=== PATIENT | male | born 1965 | race American Indian/Alaskan Native ===

== ENCOUNTER 2016-07-09 13:48 | Inpatient (IN) | payer MEDICARE, OTHER ==
[2016-07-09] MEDS ORDERED: ROCEPHIN/NS 1 GM/50 ML 50 ML IV ONE (14:03)
[2016-07-09] MEDS ORDERED: VANCOMYCIN/NS 1 GM/250 ML 250 ML IV ONE (14:04)
[2016-07-09] MEDS ORDERED: NACL 0.9% 1000 ML 1,000 ML IV ONE (14:04)
[2016-07-09] MEDS ORDERED: AMIDATE IV ONE ×4 (14:34→18:12)
[2016-07-09] MEDS ORDERED: VERSED IV ONE (14:34)
[2016-07-09] MEDS ORDERED: QUELICIN ONE (14:34)
[2016-07-09] MEDS ORDERED: ZEMURON IV ONE ×3 (14:34→15:27)
[2016-07-09] MEDS ORDERED: CARDENE DRIP 40 MG/200 ML 40 MG/200 ML BAG ONE (14:39)
[2016-07-09] MEDS ORDERED: DIPRIVAN 10 MG/ML 1,000 MG/100 ML BOTTLE IV ONE ×2 (14:40→18:41)
[2016-07-09] MEDS ORDERED: VASELINE LIP THERAPY TP PRN ×2 (14:51→14:55)
[2016-07-09] MEDS ORDERED: ARTIFICIAL TEARS OPHTH OINT OU PRN ×2 (14:51→14:55)
[2016-07-09] MEDS ORDERED: QUELICIN IV ONE (14:53)
[2016-07-09 14:57] LABS: Urine Drugs of Abuse Note Disclamer
[2016-07-09] MEDS ORDERED: VANCOMYCIN/NS 1 GM/250 ML 1 GM/250 ML BAG IV ONE (15:00)
[2016-07-09] MEDS ORDERED: ROCEPHIN/NS 1 GM/50 ML 1 GM/50 ML BAG IV ONE ×2 (15:00)
[2016-07-09] MEDS ORDERED: NACL 0.9% 500 ML IV SCH (15:00)
[2016-07-09] MEDS: DIPRIVAN 10 MG/ML 1,000 MG/100 ML BOTTLE IV SCH ×2 (15:04→21:55)
[2016-07-09 15:05] LABS: Bilirubin,Urine NEG (Negative); Blood,Urine MOD (Negative); Ketones,Urine TR mg/dL (Negative); Leukocyte Esterase,Urine NEG (Negative); Mucus,Urine FEW /HPF; Nitrite,Urine NEG (Negative); Urobilinogen,Urine < 2.0 mg/dL (<2.0)
[2016-07-09 15:11] LABS: Hematocrit 39.7 % (35.5-45.6); Hemoglobin 13.2 gm/dl (11.8-15.2); Mean Corpuscular HGB Conc 33 % (32-34); Mean Corpuscular Hemoglobin 30 pg (28-32); Mean Corpuscular Volume 91 fl (84-94); Platelet Count 196 K/mm3 (140-440); Red Blood Count 4.36 M/mm3 (3.65-5.03); White Blood Count 14.7 K/mm3 (4.5-11.0)
[2016-07-09] MEDS ORDERED: TYLENOL PR ONE ×2 (15:12→15:15)
[2016-07-09] MEDS ORDERED: fentaNYL DRIP Premix 2,000 MCG/100 ML BAG IV ONE (15:14)
--- NOTE | 2016-07-09 15:17 | XRay Report ---
PORTABLE CHEST INDICATION: Endotracheal tube placement. COMPARISON: None similar at this institution. FINDINGS: Portable, frontal chest radiograph demonstrates an endotracheal tube tip approximately 4.7 cm above the serena. Mild exaggerated cardiomediastinal silhouette and slightly crowded lung markings. No dense focal consolidation, pleural effusions or CHF. EKG leads. Unremarkable bones. CONCLUSION: No acute chest process and uncomplicated intubation, as described. Thank you for the opportunity to participate in this patient's care.
--- NOTE | 2016-07-09 15:18 | Admit Criteria Form ---
Admission Criteria Documentation: MENTAL STATUS CHANGE Clinical Indications for Inpatient Care (Place 'X' for any and all applicable criteria): Ongoing inpatient care may be needed for ANY ONE of the following(1)(2)(3)(5)(6) : [X]I. Suspected serious etiology (eg, medical disorder, RN CONCURRENT REVIEW event) of mental status change [ ]II. Danger to self or others not manageable at lower level of care [ ]III. Grave disability (eg, inability to perform self care necessary at lower level of care) [X]IV. Agitation or inappropriate behavior interfering with care for primary condition (eg, attempting to discontinue lines or drains prematurely, unable to cooperate with respiratory care) [ ]V. Delirium [A] [D][E] as described by ANY ONE of the following(26): [ ]a) Delirium due to alcohol or sedative [F] withdrawal [ ]b) Delirium of uncertain etiology that has not responded to appropriate empiric treatment [ ]c) Delirium that prevents performance of a life-sustaining function (eg, feeding or hydrating oneself) [X]. General contraindications and/or Inappropriate clinical situations for Observational Care in patients with Mental Status Change, when ANY ONE of the following is required: [ ]a) Prediction of prolongation of LOS based on ANY ONE of the following may be considered as a contraindication for observational care 2, 3, 4, 5, 6, 7, 8, 9, 10, 11 [ ]i) Age > 65 yrs. [ ]ii) Patient arriving by ambulance [ ]iii) Patient with high acuity [ ]iv) Patient requiring vital sign monitoring [ ]v) Patient on IV medication [ ]b) Systolic blood pressures 180mmHg 3,12 [X]c) Patient with altered mental status including delirium and other alteration of consciousness, (3) [ ]d) Patient whose discharge disposition will be to a fci home or rehabilitation home should not be managed in Emergency Department Observation Unit. CMS rule requires 3 days hospital stay before such placement.3,13 [ ]e) Patient with failure to thrive due to broad array of etiologies 3,16,17 [ ]f) Inability to ambulate 3,14 Extended stay beyond goal length of stay for the primary condition may be needed until ALL of the following are present(3)(5): [ ]a) Underlying medical etiology of mental status change is absent, or has been established and adequately treated [ ]b) Danger to self or others is absent or manageable at lower level of care. [ ]c) Behavior crisis management, including physical or chemical restraints, is not required or available at lower level of car [ ]d) Substance or alcohol withdrawal is absent or manageable at lower level of care. [ ]e) Behavioral symptoms (eg, agitation, somnolence, inappropriate behavior) are absent, or are manageable at lower level of care. The original [facility] content created by [facility] has been revised. The portions of the content which have been revised are identified through the use of italic text or in bold, and [facility] has neither reviewed nor approved the modified material. All other unmodified content is copyright [facility]. Please see references footnoted in the original [facility] edition 2016 Admission Criteria Met: Yes
[2016-07-09 15:25] LABS: INR 1.1 (0.87-1.13)
[2016-07-09 15:29] LABS: ISTAT Base Excess -7; ISTAT HCO3 19.6; ISTAT PCO2 38.6 (35-45); ISTAT PH 7.314 (7.35-7.45); ISTAT PO2 143 (80-105); ISTAT SO2 99; ISTAT TCO2 21
[2016-07-09 15:35] LABS: Alanine Aminotransferase 115 units/L (7-56); Albumin 4.3 g/dL (3.9-5); Alkaline Phosphatase 75 units/L (35-129); Anion Gap 25 mmol/L; BUN/Creatinine Ratio 8.18; Bilirubin,Direct 0.3 mg/dL (0-0.2); Bilirubin,Indirect 0.6 mg/dL; Bilirubin,Total 0.9 mg/dL (0.1-1.2); Blood Urea Nitrogen 9 mg/dL (9-20); Calcium 8.6 mg/dL (8.4-10.2); Carbon Dioxide 19 mmol/L (22-30); Glucose 176 mg/dL (75-100); Potassium 3.6 mmol/L (3.6-5.0); Sodium 132 mmol/L (137-145); Total Protein 8.6 g/dL (6.3-8.2)
--- NOTE | 2016-07-09 15:40 | Emergency Department Report ---
ED General Adult HPI - General Chief complaint: Altered Mental Status Stated complaint: AMS Time Seen by Provider: 07/09/16 13:59 Source: family Mode of arrival: Ambulatory Limitations: Altered Mental Status - History of Present Illness Initial comments: The patient's has arrived to provide historical information. The patient himself is completely altered and unable to give a history. The states that she went to the emergency department at [place] yesterday. They were told that the patient had a flu. Is not confused at that time. A.m. he was noted to be confused and poorly oriented. Therefore she brought him to Urgent care across the street today. She states that he was well enough to sit in the waiting room. However rather than remaining he wandered across the street. He was found disoriented and obviously altered by security in the hospitalist cardiac cath laboratory. He was escorted to the emergency department by security staff. The charge nurse brought his status to my attention immediately. He required multiple staff members and myself even to obtain vital signs. The was present in the room. I explained to her that we would have to perform rapid sequence intubation in order to provide medical screening and stabilization of the patient. Additionally he would be presumptively treated for meningitis. He was indeed white-hot to the touch and later when we were able to obtain a rectal temp it was about 103. His bedside glucose was normal. The expressed understanding as to the plan of care. Therefore elective intubation proceeded. - Related Data Allergies Allergy/AdvReac Type Severity Reaction Status Date / Time No Known Allergies Allergy Verified 06/19/15 20:46 ED Review of Systems ROS: Stated complaint: AMS Other details as noted in HPI ED Past Medical Hx - Past Medical History Hx Hypertension: Yes Hx Diabetes: Yes (borderline) Hx Psychiatric Treatment: Yes (bipolar) - Surgical History Past Surgical History?: No - Social History Smoking Status: Current Some Day Smoker Substance Use Type: Alcohol ED Physical Exam - General Limitations: Altered Mental Status ED Course Vital Signs 07/09/16 07/09/16 13:49 14:35 Pulse Rate 94 H 90 Respiratory 16 Rate Blood Pressure 186/112 [Right] O2 Sat by Pulse 96 96 Oximetry - Reevaluation(s) Reevaluation #1: Spoke with Dr. Teran, infectious disease disease. He agreed with antibiotic coverage (initial). CT of the head: Right maxillary sinus disease. No intracranial abnormality. No contraindication to lumbar puncture. We will proceed with lumbar puncture. Call him back with the results of the LP. I spoke with Dr. Lobo. The patient will be admitted to the intensive care unit. Pressure is improving on Cardene. Propafol and fentanyl drip. 07/09/16 16:05 ED Medical Decision Making - Lab Data Result diagrams: 07/09/16 14:55 07/09/16 14:55 Critical care attestation.: If time is entered above; I have spent that time in minutes in the direct care of this critically ill patient, excluding procedure time. ED Disposition Clinical Impression: Febrile illness, acute, Hypertensive emergency Altered mental status Qualifiers: Altered mental status type: delirium Qualified Code(s): R41.0 - Disorientation , unspecified Disposition: OP ADMITTED IP TO THIS HOSP Is pt being admited?: Yes Does the pt Need Aspirin: Yes Condition: Stable Instructions: Hypertension (ED) Referrals: PRIMARY CARE, [Primary Care Provider] - 3-5 Days Time of Disposition: 16:15
[2016-07-09 15:55] LABS: Basophils % (Manual) 0 % (0.0-1.8); Blastocytes % (Manual) 0 %; Eosinophils % (Manual) 0 % (0.0-4.3)
--- NOTE | 2016-07-09 15:55 | History and Physical Report ---
History of Present Illness Date of examination: 07/09/16 History of present illness: The patient's has arrived to provide historical information. The patient himself is completely altered and unable to give a history. The states that she went to the emergency department at [place] yesterday. They were told that the patient had a flu. Is not confused at that time. A.m. he was noted to be confused and poorly oriented. Therefore she brought him to Urgent care across the street today. She states that he was well enough to sit in the waiting room. However rather than remaining he wandered across the street. He was found disoriented and obviously altered by security in the hospitalist cardiac cath laboratory. He was escorted to the emergency department by security staff. The charge nurse brought his status to my attention immediately. He required multiple staff members and myself even to obtain vital signs. The was present in the room. I explained to her that we would have to perform rapid sequence intubation in order to provide medical screening and stabilization of the patient. Additionally he would be presumptively treated for meningitis. He was indeed white-hot to the touch and later when we were able to obtain a rectal temp it was about 103. His bedside glucose was normal. The expressed understanding as to the plan of care. Therefore elective intubation proceeded. Medications and Allergies Allergies Allergy/AdvReac Type Severity Reaction Status Date / Time No Known Allergies Allergy Verified 06/19/15 20:46 Active Meds: Active Medications Hydrophilic Ointment (Vaseline Lip Therapy) 1 applic TP Q2HR PRN PRN Reason: Dry Lips Hydrophilic Ointment (Vaseline Lip Therapy) 1 applic TP Q2HR PRN PRN Reason: Dry Lips Vancomycin HCl (Vancomycin/Ns 1 Gm/250 Ml) 1 gm in 250 mls @ 167.007 mls/hr IV ONCE ONE PRN Reason: Protocol Stop: 07/09/16 16:29 Propofol (Diprivan 10 Mg/Ml) 1,000 mg in 100 mls @ 3.062 mls/hr IV TITR CHANDANA; 5 MCG/KG/MIN PRN Reason: Protocol Nicardipine/Sodium Chloride (Cardene Drip 40 Mg/200 Ml) 40 mg in 200 mls @ 25 mls/hr IV TITR CHANDANA; 5 MG/HR PRN Reason: Protocol Multi-Ingred Cream/Lotion/Oil/Oint (Artificial Tears Ophth Oint) 1 applic OU Q4HR PRN PRN Reason: Dry Eye(s) Multi-Ingred Cream/Lotion/Oil/Oint (Artificial Tears Ophth Oint) 1 applic OU Q4HR PRN PRN Reason: Dry Eye(s) Sodium Chloride (Nacl 0.9% 500 Ml) 1 ml IV DIRECT CHANDANA Review of Systems Neurological: change in mentation Exam - Constitutional Vitals: Temp Pulse Resp BP Pulse Ox 90 16 186/112 96 07/09/16 14:35 07/09/16 13:49 07/09/16 13:49 07/09/16 14:35 General appearance: Present: severe distress - Respiratory Respiratory effort: labored Respiratory: bilateral: rhonchi - Cardiovascular Rhythm: regular Heart Sounds: Present: S1 & S2 - Abdominal General gastrointestinal: Present: soft, non-distended, normal bowel sounds Results - Labs CBC & Chem 7: 07/09/16 14:55 07/09/16 14:55 Labs: Laboratory Last Values WBC 14.7 K/mm3 (4.5-11.0) H 07/09/16 14:55 RBC 4.36 M/mm3 (3.65-5.03) 07/09/16 14:55 Hgb 13.2 gm/dl (11.8-15.2) 07/09/16 14:55 Hct 39.7 % (35.5-45.6) 07/09/16 14:55 MCV 91 fl (84-94) 07/09/16 14:55 MCH 30 pg (28-32) 07/09/16 14:55 MCHC 33 % (32-34) 07/09/16 14:55 RDW 16.0 % (13.2-15.2) H 07/09/16 14:55 Plt Count 196 K/mm3 (140-440) 07/09/16 14:55 Seg Neutrophils % District Branch Manager 07/09/16 14:55 PT 14.1 Sec. (12.2-14.9) 07/09/16 14:55 INR 1.10 (0.87-1.13) 07/09/16 14:55 POC ABG pH 7.314 (7.35-7.45) L 07/09/16 15:22 POC ABG pCO2 38.6 (35-45) 07/09/16 15:22 POC ABG pO2 143 (80-105) H 07/09/16 15:22 POC ABG HCO3 19.6 07/09/16 15:22 POC ABG Total CO2 21 07/09/16 15:22 POC ABG O2 Sat 99 07/09/16 15:22 POC ABG Base Excess -7 07/09/16 15:22 FiO2 100 % 07/09/16 15:22 Sodium 132 mmol/L (137-145) L 07/09/16 14:55 Potassium 3.6 mmol/L (3.6-5.0) 07/09/16 14:55 Chloride 92.0 mmol/L (98-107) L 07/09/16 14:55 Carbon Dioxide 19 mmol/L (22-30) L 07/09/16 14:55 Anion Gap 25 mmol/L 07/09/16 14:55 BUN 9 mg/dL (9-20) 07/09/16 14:55 Creatinine 1.1 mg/dL (0.8-1.5) 07/09/16 14:55 Estimated GFR > 60 ml/min 07/09/16 14:55 BUN/Creatinine Ratio 8.18 % 07/09/16 14:55 Glucose 176 mg/dL (75-100) H 07/09/16 14:55 Lactic Acid 5.6 mmol/L (0.7-2.0) H* 07/09/16 14:55 Calcium 8.6 mg/dL (8.4-10.2) 07/09/16 14:55 Total Bilirubin 0.9 mg/dL (0.1-1.2) 07/09/16 14:55 Direct Bilirubin 0.3 mg/dL (0-0.2) H 07/09/16 14:55 Indirect Bilirubin 0.6 mg/dL 07/09/16 14:55 AST 80 units/L (5-40) H 07/09/16 14:55 ALT 115 units/L (7-56) H 07/09/16 14:55 Alkaline Phosphatase 75 units/L (35-129) 07/09/16 14:55 Ammonia 30.0 umol/L (25-60) 07/09/16 14:55 Troponin T < 0.010 ng/mL (0.00-0.029) 07/09/16 14:55 Total Protein 8.6 g/dL (6.3-8.2) H 07/09/16 14:55 Albumin 4.3 g/dL (3.9-5) 07/09/16 14:55 Albumin/Globulin Ratio 1.0 % 07/09/16 14:55 Urine Color Yellow (Yellow) 07/09/16 14:47 Urine Turbidity Clear (Clear) 07/09/16 14:47 Urine pH 7.0 (5.0-7.0) 07/09/16 14:47 Ur Specific [place] 1.012 (1.003-1.030) 07/09/16 14:47 Urine Protein 100 mg/dl mg/dL (Negative) 07/09/16 14:47 Urine Glucose (UA) >=500 mg/dL (Negative) 07/09/16 14:47 Urine Ketones Tr mg/dL (Negative) 07/09/16 14:47 Urine Blood Mod (Negative) 07/09/16 14:47 Urine Nitrite Neg (Negative) 07/09/16 14:47 Urine Bilirubin Neg (Negative) 07/09/16 14:47 Urine Urobilinogen < 2.0 mg/dL (<2.0) 07/09/16 14:47 Ur Leukocyte Esterase Neg (Negative) 07/09/16 14:47 Urine WBC (Auto) 1.0 /HPF (0.0-6.0) 07/09/16 14:47 Urine RBC (Auto) 11.0 /HPF (0.0-6.0) 07/09/16 14:47 Urine Mucus Few /HPF 07/09/16 14:47 Urine Opiates Screen Presumptive negative 07/09/16 14:47 Urine Methadone Screen Presumptive negative 07/09/16 14:47 Ur Barbiturates Screen Presumptive negative 07/09/16 14:47 Ur Phencyclidine Scrn Presumptive negative 07/09/16 14:47 Ur Amphetamines Screen Presumptive negative 07/09/16 14:47 U Benzodiazepines Scrn Presumptive negative 07/09/16 14:47 Urine Cocaine Screen Presumptive negative 07/09/16 14:47 U Marijuana (THC) Screen Presumptive negative 07/09/16 14:47 Assessment and Plan - Patient Problems (1) Acute respiratory failure Current Visit: Yes Status: Acute Qualifiers: Respiratory failure complication: R Plan to address problem: Patient currently on mechanical ventilation and will be managed by pulmonary medicine. Continue to monitor on the vent (2) Encephalopathy Current Visit: Yes Status: Acute Plan to address problem: Patient presented with altered mental status and will be evaluated by infectious disease. Patient will have CT scan of the brain and lumbar puncture done. Will start on empiric antibiotics
[2016-07-09 15:56] LABS: Anisocytosis 1+; Diff Status Complete; Platelet Estimate Consistent w Auto; Poikilocytosis Few
--- NOTE | 2016-07-09 16:05 | Cat Scan Report ---
CT HEAD WITHOUT CONTRAST INDICATION: Altered mental status. COMPARISON: None similar. FINDINGS: Noncontrast head CT demonstrates normal ventricles and sulci without acute or recent infarct, hemorrhage, mass effect or midline shift. No abnormal extra-axial fluid collections. Posterior fossa structures and basilar cisterns appear within normal limits. Symmetric eye globes. Near completely opacified right maxillary sinus. Clear remainder imaged paranasal sinuses and mastoid air cells. Slight nasal septal deviation. Intact calvarium. Normal overlying scalp soft tissues. Few radiopaque dental material incidentally noted. Patient intubated. CONCLUSION: No acute intracranial CT abnormality with right maxillary sinus disease and intubation noted, as described. Thank you for the opportunity to participate in this patient's care.
[2016-07-09] MEDS ORDERED: ASPIRIN PR ONE (16:16)
[2016-07-09] MEDS: CARDENE DRIP 40 MG/200 ML 40 MG/200 ML BAG IV SCH (16:16)
[2016-07-09] MEDS: fentaNYL DRIP Premix 2,000 MCG/100 ML BAG IV SCH ×2 (16:44→21:52)
[2016-07-09] MEDS ORDERED: DULCOLAX PR PRN (16:48)
[2016-07-09] MEDS ORDERED: ALUM-MAG HYDROX-SIMETH 200-200-20MG/5ML PO PRN (16:48)
[2016-07-09] MEDS ORDERED: MILK OF MAGNESIA PO PRN (16:48)
[2016-07-09] MEDS ORDERED: LOVENOX SUB-Q SCH (17:00)
[2016-07-09] MEDS: NACL 0.9% 1000 ML 1,000 ML IV SCH (18:11)
[2016-07-09] MEDS: LOVENOX SUB-Q SCH (18:36)
[2016-07-09] MEDS: ROCEPHIN/NS 1 GM/50 ML 1 GM/50 ML BAG IV SCH (22:00)
[2016-07-10] MEDS: NACL 0.9% 1000 ML 1,000 ML IV SCH (03:23)
[2016-07-10 04:17] LABS: Basophils % (Auto) 0.2 % (0.0-1.8); Hematocrit 36.8 % (35.5-45.6); Hemoglobin 12.1 gm/dl (11.8-15.2); Mean Corpuscular HGB Conc 33 % (32-34); Mean Corpuscular Hemoglobin 30 pg (28-32); Mean Corpuscular Volume 90 fl (84-94); Platelet Count 155 K/mm3 (140-440); Red Blood Count 4.09 M/mm3 (3.65-5.03); Red Cell Distribution Width 16.2 % (13.2-15.2); White Blood Count 17.4 K/mm3 (4.5-11.0)
[2016-07-10 04:25] LABS: Alanine Aminotransferase 79 units/L (7-56); Albumin 3.2 g/dL (3.9-5); Albumin/Globulin Ratio 0.8 %; Alkaline Phosphatase 65 units/L (35-129); Anion Gap 17 mmol/L; BUN/Creatinine Ratio 11.11; Bilirubin,Total 1.1 mg/dL (0.1-1.2); Blood Urea Nitrogen 10 mg/dL (9-20); Calcium 7.8 mg/dL (8.4-10.2); Carbon Dioxide 23 mmol/L (22-30); Chloride 92.8 mmol/L (98-107); Glucose 115 mg/dL (75-100); Potassium 3.9 mmol/L (3.6-5.0); Sodium 129 mmol/L (137-145)
[2016-07-10 06:06] LABS: ISTAT Base Excess -2; ISTAT HCO3 24.7; ISTAT PCO2 53.4 (35-45); ISTAT PH 7.273 (7.35-7.45); ISTAT PO2 113 (80-105); ISTAT SO2 98; ISTAT TCO2 26
--- NOTE | 2016-07-10 09:20 | XRay Report ---
Single view chest: Compared to 07/09/16. History: Followup of respiratory failure. Findings: Borderline cardiomegaly. Trachea is midline. Tip of endotracheal tube in normal position. Linear density right lower lobe. Normal CP angles. Impression: Linear density right lower lobe suggestive of discoid atelectasis or pneumonitis. Not seen in the previous study
[2016-07-10] MEDS: fentaNYL DRIP Premix 2,000 MCG/100 ML BAG IV SCH ×2 (09:41→21:06)
[2016-07-10] MEDS: ROCEPHIN/NS 1 GM/50 ML 1 GM/50 ML BAG IV SCH (10:40)
[2016-07-10] MEDS: DIPRIVAN 10 MG/ML 1,000 MG/100 ML BOTTLE IV SCH (10:41)
[2016-07-10] MEDS ORDERED: VANCOMYCIN/NS 1 GM/250 ML 1 GM/250 ML BAG IV ONE ×2 (10:42→15:00)
[2016-07-10] MEDS: LOVENOX SUB-Q SCH (11:00)
--- NOTE | 2016-07-10 11:38 | Consultation ---
History of Present Illness Consult date: 07/10/16 Requesting physician: LISANDRA DUMONT Reason for consult: other (vent management) History of present illness: 50 y/o male, recently diagnosed with the flu, approximately 2 days ago, admitted to the ICU on the vent. Electively intubated in the ED on yesterday secondary to altered mental status and combativeness. Per girlfriend at bedside , was diagnosed with the flu and started on Tamiflu. Yesterday went to as he was altered. 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 Taken to ED and became very combative. ED elected to intubate as oppose to trying to sedate and calm the patient. Patient was found to be febrile and hypertensive. Concern for meningitis. Started on empiric abx therapy and transferred to the ICU. Currently sedated on propofol and fent. It does not appear that an LP was performed. Past History Past Medical History: other (unable to obtain) Past Surgical History: Other (unable to obtain) Social history: other (unable to obtain) Family history: other (unable to obtain) Medications and Allergies Allergies Allergy/AdvReac Type Severity Reaction Status Date / Time No Known Allergies Allergy Verified 06/19/15 20:46 Active Meds: Active Medications Acetaminophen (Tylenol) 650 mg NJ Q4H PRN PRN Reason: Pain, Mild (1-3) Al Hydrox/Mg Hydrox/Simethicone (Alum-Mag Hydrox-Simeth [id number]/5ml) 30 ml PO Q4H PRN PRN Reason: Indigestion Bisacodyl (Dulcolax) 10 mg NJ QDAY PRN PRN Reason: constipation unrelieved by MOM Enoxaparin Sodium (Lovenox) 40 mg SUB-Q QDAY CHANDANA Last Admin: 07/09/16 18:36 Dose: 40 mg Hydrophilic Ointment (Vaseline Lip Therapy) 1 applic TP Q2HR PRN PRN Reason: Dry Lips Propofol (Diprivan 10 Mg/Ml) 1,000 mg in 100 mls @ 3.062 mls/hr IV TITR CHANDANA; 5 MCG/KG/MIN PRN Reason: Protocol Last Admin: 07/10/16 10:41 Dose: 10 mcg/kg/min, 6.123 mls/hr Nicardipine/Sodium Chloride (Cardene Drip 40 Mg/200 Ml) 40 mg in 200 mls @ 25 mls/hr IV TITR CHANDANA; 5 MG/HR PRN Reason: Protocol Last Titration: 07/09/16 16:54 Dose: 0 mg/hr, 0 mls/hr Fentanyl Citrate (Fentanyl Drip Premix) 2,000 mcg in 100 mls @ 5.103 mls/hr IV TITR CHANDANA; 1 MCG/KG/HR PRN Reason: Protocol Last Admin: 07/10/16 09:41 Dose: 2 mcg/kg/hr, 10.206 mls/hr Sodium Chloride (Nacl 0.9% 1000 Ml) 1,000 mls @ 125 mls/hr IV DIRECT CHANDANA Last Admin: 07/10/16 03:23 Dose: 125 mls/hr Ceftriaxone Sodium (Rocephin/Ns 1 Gm/50 Ml) 1 gm in 50 mls @ 100 mls/hr IV Q24HR CHANDANA PRN Reason: Protocol Last Admin: 07/10/16 10:40 Dose: 100 mls/hr Vancomycin HCl (Vancomycin/Ns 1 Gm/250 Ml) 1 gm in 250 mls @ 167.007 mls/hr IV ONCE ONE PRN Reason: Protocol Stop: 07/10/16 12:11 Magnesium Hydroxide (Milk Of Magnesia) 30 ml PO Q4H PRN PRN Reason: Constipation Multi-Ingred Cream/Lotion/Oil/Oint (Artificial Tears Ophth Oint) 1 applic OU Q4HR PRN PRN Reason: Dry Eye(s) Sodium Chloride (Nacl 0.9% 500 Ml) 1 ml IV DIRECT CHANDANA Review of Systems ROS unobtainable: due to endotracheal tube, due to mental status Physical Examination Vital signs: Vital Signs Pulse Resp BP Pulse Ox 94 H 16 186/112 96 07/09/16 13:49 07/09/16 13:49 07/09/16 13:49 07/09/16 13:49 General appearance: agitated, appears uncomfortable Eyes: non-icteric ENT: oropharynx moist, other (orally intubated and sedated. Critically ill) Neck: supple, other (it is stiff and rigid, i am not able to make him flex forward, unable to tell if this is voluntary or involuntary) Results - Laboratory Findings CBC and BMP: 07/10/16 03:22 07/10/16 03:22 ABG POC ABG pH 7.273 (7.35-7.45) L 07/10/16 05:48 POC ABG pCO2 53.4 (35-45) H 07/10/16 05:48 POC ABG pO2 113 (80-105) H 07/10/16 05:48 POC ABG HCO3 24.7 07/10/16 05:48 POC ABG Total CO2 26 07/10/16 05:48 POC ABG O2 Sat 98 07/10/16 05:48 PT/INR, D-dimer PT 14.1 Sec. (12.2-14.9) 07/09/16 14:55 INR 1.10 (0.87-1.13) 07/09/16 14:55 Abnormal lab findings: Abnormal Labs 07/09/16 07/09/16 07/10/16 18:28 22:10 00:23 WBC RDW Lymph % (Auto) Jerome % (Auto) Jerome # Seg Neutrophils % Seg Neutrophils # POC ABG pH POC ABG pCO2 POC ABG pO2 Sodium Chloride Glucose POC Glucose 123 H 118 H Lactic Acid 2.4 H* Calcium AST ALT Albumin 07/10/16 07/10/16 07/10/16 03:22 03:22 05:35 WBC 17.4 H RDW 16.2 H Lymph % (Auto) 6.8 L Jerome % (Auto) 7.7 H Jerome # 1.3 H Seg Neutrophils % 85.3 H Seg Neutrophils # 14.8 H POC ABG pH POC ABG pCO2 POC ABG pO2 Sodium 129 L Chloride 92.8 L Glucose 115 H POC Glucose 106 H Lactic Acid Calcium 7.8 L AST 42 H ALT 79 H Albumin 3.2 L 07/10/16 05:48 WBC RDW Lymph % (Auto) Jerome % (Auto) Jerome # Seg Neutrophils % Seg Neutrophils # POC ABG pH 7.273 L POC ABG pCO2 53.4 H POC ABG pO2 113 H Sodium Chloride Glucose POC Glucose Lactic Acid Calcium AST ALT Albumin - Diagnostic Findings Chest x-ray: image reviewed (cardiomegaly with right lower lobe air space disease, effusion vs atelectasis vs infiltrate) Assessment and Plan 50 y/o male with acute encephalopathy, hypertensive emergency, fever and recent diagnosis of flu, now on mechanical ventilation secondary to mental status and combativeness. 1. Will check EKG 2. If QtC is normal, will add PRN haldol 3. Will also add PRN ativan and benadryl with attempts to wean off propofol and fent. 4. Check Triglyceride levels on diprovan tomorrow 5. Follow up in any ID recs 6. PER ED, plan was to do LP, but I do not see where any fluid is in micro. CCT 31 minutes
[2016-07-10] MEDS: ATIVAN IV PRN (20:31)
[2016-07-10] MEDS: HALDOL IV PRN (20:31)
[2016-07-10] MEDS: BENADRYL IV PRN (20:32)
[2016-07-11] MEDS: TYLENOL PR PRN ×3 (01:24→21:22)
[2016-07-11] MEDS: NACL 0.9% 1000 ML 1,000 ML IV SCH ×3 (01:34→16:40)
[2016-07-11] MEDS: BENADRYL IV PRN ×2 (03:08→20:00)
[2016-07-11] MEDS: HALDOL IV PRN ×2 (03:08→20:00)
[2016-07-11] MEDS: ATIVAN IV PRN ×4 (03:08→21:14)
[2016-07-11] MEDS: fentaNYL DRIP Premix 2,000 MCG/100 ML BAG IV SCH (05:34)
[2016-07-11 06:09] LABS: ISTAT Base Excess -1; ISTAT HCO3 23.2; ISTAT PCO2 34.9 (35-45); ISTAT PO2 163 (80-105); ISTAT SO2 100; ISTAT TCO2 24
--- NOTE | 2016-07-11 08:24 | Progress Note ---
Assessment and Plan - Patient Problems (1) Acute respiratory failure Current Visit: Yes Status: Acute Qualifiers: Respiratory failure complication: R Plan to address problem: Pulmonary consulted. continue vent support, wean vent as tolerated, Daily SBT and sedation holiday. The high probability of a clinically significant, sudden or life threatening deterioration of the [pulmonary, cardiac] system(s) required my full and direct attention, intervention and personal management. The aggregate critical care time was [45] minutes. This time is in addition to time spent performing reported procedures but includes the following: [x] Data Review and interpretation [x] Patient assessment and monitoring of vital signs [x] Documentation [x] Medication orders and management (2) Metabolic syndrome Current Visit: Yes Status: Acute Plan to address problem: supportive care (3) Encephalopathy Current Visit: Yes Status: Acute Plan to address problem: continue current therapy, empiric abx, supportive care. (4) Hypertensive emergency Current Visit: Yes Status: Acute Plan to address problem: monitor bp q shift, continue current therapy (5) DVT prophylaxis Current Visit: Yes Status: Acute History Interval history: Pt lying in bed, Pt intubated, sedated on vent support. Pt family at bedside. Discussed care plan and prognosis with family. Hospitalist Physical - Constitutional Vitals: Temp Pulse Resp BP Pulse Ox 99.1 F 108 H 22 128/87 96 07/11/16 05:00 07/11/16 07:30 07/11/16 07:30 07/11/16 07:30 07/11/16 07:30 General appearance: Present: severe distress - Neck Neck: Present: supple - Respiratory Respiratory: bilateral: diminished - Cardiovascular Rhythm: regular Heart Sounds: Present: S1 & S2 - Extremities Extremities: no ischemia Extremity abnormal: edema Peripheral Pulses: within normal limits - Abdominal General gastrointestinal: soft, non-tender, non-distended - Integumentary Integumentary: Present: clear, dry, decreased turgor - Psychiatric Psychiatric: no other (intubated, on vent support) - Neurologic Neurologic: no moves all extremities, no gait normal Results - Labs CBC & Chem 7: 07/10/16 03:22 07/10/16 03:22 Labs: Laboratory Last Values WBC 17.4 K/mm3 (4.5-11.0) H 07/10/16 03:22 RBC 4.09 M/mm3 (3.65-5.03) 07/10/16 03:22 Hgb 12.1 gm/dl (11.8-15.2) 07/10/16 03:22 Hct 36.8 % (35.5-45.6) 07/10/16 03:22 MCV 90 fl (84-94) 07/10/16 03:22 MCH 30 pg (28-32) 07/10/16 03:22 MCHC 33 % (32-34) 07/10/16 03:22 RDW 16.2 % (13.2-15.2) H 07/10/16 03:22 Plt Count 155 K/mm3 (140-440) 07/10/16 03:22 Lymph % (Auto) 6.8 % (13.4-35.0) L 07/10/16 03:22 [place] % (Auto) 7.7 % (0.0-7.3) H 07/10/16 03:22 Eos % (Auto) 0.0 % (0.0-4.3) 07/10/16 03:22 Baso % (Auto) 0.2 % (0.0-1.8) 07/10/16 03:22 Lymph # 1.2 K/mm3 (1.2-5.4) 07/10/16 03:22 [place] # 1.3 K/mm3 (0.0-0.8) H 07/10/16 03:22 Eos # 0.0 K/mm3 (0.0-0.4) 07/10/16 03:22 Baso # 0.0 K/mm3 (0.0-0.1) 07/10/16 03:22 Add Manual Diff Complete 07/09/16 14:55 Total Counted 100 07/09/16 14:55 Seg Neutrophils % 85.3 % (40.0-70.0) H 07/10/16 03:22 Seg Neuts % (Manual) 88.0 % (40.0-70.0) H 07/09/16 14:55 Band Neutrophils % 0 % 07/09/16 14:55 Lymphocytes % (Manual) 6.0 % (13.4-35.0) L 07/09/16 14:55 Reactive Lymphs % (Man) 0 % 07/09/16 14:55 Monocytes % (Manual) 6.0 % (0.0-7.3) 07/09/16 14:55 Eosinophils % (Manual) 0 % (0.0-4.3) 07/09/16 14:55 Basophils % (Manual) 0 % (0.0-1.8) 07/09/16 14:55 Metamyelocytes % 0 % 07/09/16 14:55 Myelocytes % 0 % 07/09/16 14:55 Promyelocytes % 0 % 07/09/16 14:55 Blast Cells % 0 % 07/09/16 14:55 Nucleated RBC % Not Reportable 07/09/16 14:55 Seg Neutrophils # 14.8 K/mm3 (1.8-7.7) H 07/10/16 03:22 Seg Neutrophils # Man 12.9 K/mm3 (1.8-7.7) H 07/09/16 14:55 Band Neutrophils # 0.0 K/mm3 07/09/16 14:55 Lymphocytes # (Manual) 0.9 K/mm3 (1.2-5.4) L 07/09/16 14:55 Abs React Lymphs (Man) 0.0 K/mm3 07/09/16 14:55 Monocytes # (Manual) 0.9 K/mm3 (0.0-0.8) H 07/09/16 14:55 Eosinophils # (Manual) 0.0 K/mm3 (0.0-0.4) 07/09/16 14:55 Basophils # (Manual) 0.0 K/mm3 (0.0-0.1) 07/09/16 14:55 Metamyelocytes # 0.0 K/mm3 07/09/16 14:55 Myelocytes # 0.0 K/mm3 07/09/16 14:55 Promyelocytes # 0.0 K/mm3 07/09/16 14:55 Blast Cells # 0.0 K/mm3 07/09/16 14:55 WBC Morphology Not Reportable 07/09/16 14:55 Hypersegmented Neuts Not Reportable 07/09/16 14:55 Hyposegmented Neuts Not Reportable 07/09/16 14:55 Hypogranular Neuts Not Reportable 07/09/16 14:55 Smudge Cells Not Reportable 07/09/16 14:55 Toxic Granulation Not Reportable 07/09/16 14:55 Toxic Vacuolation Not Reportable 07/09/16 14:55 Dohle Bodies Not Reportable 07/09/16 14:55 Pelger-Huet Anomaly Not Reportable 07/09/16 14:55 [address] Rods Not Reportable 07/09/16 14:55 Platelet Estimate Consistent w auto 07/09/16 14:55 Clumped Platelets Not Reportable 07/09/16 14:55 Plt Clumps, EDTA Not Reportable 07/09/16 14:55 Large Platelets Not Reportable 07/09/16 14:55 Giant Platelets Not Reportable 07/09/16 14:55 Platelet Satelliting Not Reportable 07/09/16 14:55 Plt Morphology Comment Not Reportable 07/09/16 14:55 RBC Morphology Not Reportable 07/09/16 14:55 Dimorphic RBCs Not Reportable 07/09/16 14:55 Polychromasia Not Reportable 07/09/16 14:55 Hypochromasia Not Reportable 07/09/16 14:55 Poikilocytosis Few 07/09/16 14:55 Anisocytosis 1+ 07/09/16 14:55 Microcytosis Not Reportable 07/09/16 14:55 Macrocytosis Not Reportable 07/09/16 14:55 Spherocytes Not Reportable 07/09/16 14:55 Pappenheimer Bodies Not Reportable 07/09/16 14:55 Sickle Cells Not Reportable 07/09/16 14:55 Target Cells Not Reportable 07/09/16 14:55 Tear Drop Cells Not Reportable 07/09/16 14:55 Ovalocytes Not Reportable 07/09/16 14:55 Helmet Cells Not Reportable 07/09/16 14:55 [place] Bodies Not Reportable 07/09/16 14:55 [place] Rings Not Reportable 07/09/16 14:55 Sof[place] Cells Not Reportable 07/09/16 14:55 Bite Cells Not Reportable 07/09/16 14:55 Crenated Cell Not Reportable 07/09/16 14:55 Elliptocytes Not Reportable 07/09/16 14:55 Acanthocytes (Spur) Not Reportable 07/09/16 14:55 Rouleaux Not Reportable 07/09/16 14:55 Hemoglobin C Crystals Not Reportable 07/09/16 14:55 Schistocytes Not Reportable 07/09/16 14:55 Malaria parasites Not Reportable 07/09/16 14:55 Tobias Bodies Not Reportable 07/09/16 14:55 Hem Pathologist Commnt No 07/09/16 14:55 PT 14.1 Sec. (12.2-14.9) 07/09/16 14:55 INR 1.10 (0.87-1.13) 07/09/16 14:55 POC ABG pH 7.430 (7.35-7.45) 07/11/16 05:59 POC ABG pCO2 34.9 (35-45) L 07/11/16 05:59 POC ABG pO2 163 (80-105) H 07/11/16 05:59 POC ABG HCO3 23.2 07/11/16 05:59 POC ABG Total CO2 24 07/11/16 05:59 POC ABG O2 Sat 100 07/11/16 05:59 POC ABG Base Excess -1 07/11/16 05:59 FiO2 50 % 07/11/16 05:59 Sodium 129 mmol/L (137-145) L 07/10/16 03:22 Potassium 3.9 mmol/L (3.6-5.0) 07/10/16 03:22 Chloride 92.8 mmol/L (98-107) L 07/10/16 03:22 Carbon Dioxide 23 mmol/L (22-30) 07/10/16 03:22 Anion Gap 17 mmol/L 07/10/16 03:22 BUN 10 mg/dL (9-20) 07/10/16 03:22 Creatinine 0.9 mg/dL (0.8-1.5) 07/10/16 03:22 Estimated GFR > 60 ml/min 07/10/16 03:22 BUN/Creatinine Ratio 11.11 % 07/10/16 03:22 Glucose 115 mg/dL (75-100) H 07/10/16 03:22 POC Glucose 106 (70-105) H 07/10/16 05:35 Lactic Acid 2.4 mmol/L (0.7-2.0) H* 07/09/16 18:28 Calcium 7.8 mg/dL (8.4-10.2) L 07/10/16 03:22 Total Bilirubin 1.1 mg/dL (0.1-1.2) 07/10/16 03:22 Direct Bilirubin 0.3 mg/dL (0-0.2) H 07/09/16 14:55 Indirect Bilirubin 0.6 mg/dL 07/09/16 14:55 AST 42 units/L (5-40) H 07/10/16 03:22 ALT 79 units/L (7-56) H 07/10/16 03:22 Alkaline Phosphatase 65 units/L (35-129) 07/10/16 03:22 Ammonia 30.0 umol/L (25-60) 07/09/16 14:55 Troponin T < 0.010 ng/mL (0.00-0.029) 07/09/16 14:55 C-Reactive Protein 11.60 mg/dL (0.00-1.30) H 07/09/16 14:55 Total Protein 7.0 g/dL (6.3-8.2) 07/10/16 03:22 Albumin 3.2 g/dL (3.9-5) L 07/10/16 03:22 Albumin/Globulin Ratio 0.8 % 07/10/16 03:22 Urine Color Yellow (Yellow) 07/09/16 14:47 Urine Turbidity Clear (Clear) 07/09/16 14:47 Urine pH 7.0 (5.0-7.0) 07/09/16 14:47 Ur Specific [place] 1.012 (1.003-1.030) 07/09/16 14:47 Urine Protein 100 mg/dl mg/dL (Negative) 07/09/16 14:47 Urine Glucose (UA) >=500 mg/dL (Negative) 07/09/16 14:47 Urine Ketones Tr mg/dL (Negative) 07/09/16 14:47 Urine Blood Mod (Negative) 07/09/16 14:47 Urine Nitrite Neg (Negative) 07/09/16 14:47 Urine Bilirubin Neg (Negative) 07/09/16 14:47 Urine Urobilinogen < 2.0 mg/dL (<2.0) 07/09/16 14:47 Ur Leukocyte Esterase Neg (Negative) 07/09/16 14:47 Urine WBC (Auto) 1.0 /HPF (0.0-6.0) 07/09/16 14:47 Urine RBC (Auto) 11.0 /HPF (0.0-6.0) 07/09/16 14:47 Urine Mucus Few /HPF 07/09/16 14:47 Urine Opiates Screen Presumptive negative 07/09/16 14:47 Urine Methadone Screen Presumptive negative 07/09/16 14:47 Ur Barbiturates Screen Presumptive negative 07/09/16 14:47 Ur Phencyclidine Scrn Presumptive negative 07/09/16 14:47 Ur Amphetamines Screen Presumptive negative 07/09/16 14:47 U Benzodiazepines Scrn Presumptive negative 07/09/16 14:47 Urine Cocaine Screen Presumptive negative 07/09/16 14:47 U Marijuana (THC) Screen Presumptive negative 07/09/16 14:47 Drugs of Abuse Note Disclamer 07/09/16 14:47
--- NOTE | 2016-07-11 09:19 | Progress Note ---
Assessment and Plan 50 y/o male with acute encephalopathy, hypertensive emergency, fever and recent diagnosis of flu, now on mechanical ventilation secondary to mental status and combativeness. 1. Continue the cocktail of Haldol, ativan and benadryl for sedation. Asked nursing to wean off Fent drip. 2. Would like to extubate melina, pending what mental status is like off of fent drip. 3. Check Triglyceride level today. 4. Will repeat blood and urine cx with next fever spike 5. Insert Dobb Felipe tube and start PO therapy for BP and Flu 6. IMS to add back Tamiflu, 75 BID. Needs a total of 5 days 7. Still do not see where LP was done. If patient remains febrile and agitated will need to have this done. 8. AMS could have been from PRES, unfortunately, we do not have neurology here. Patient could likely benefit from MRI. Despite this needs better BP control. IMS to assess. 9. Patient intubated in ED from what I can tell was for extreme agitation and need for imaging. He has no underlying lung disease so as long as off of deep sedation he can breathe normally, extubation is ideal. Weaning sedation and will attempt PRN therapy for agitation so that extubation can take place. CCT 31 minutes Subjective Date of service: 07/11/16 Interval history: No acute events overnight. Propofol off, fent drip still going. No family at bedside. Lungs clear. Still with fever. Objective Vital Signs - 12hr 07/10/16 07/10/16 07/10/16 21:30 22:00 22:30 Temperature Pulse Rate 112 H 107 H 106 H Pulse Rate [ From Monitor] Respiratory 22 22 22 Rate Blood Pressure 115/70 115/70 116/72 O2 Sat by Pulse 99 98 99 Oximetry 07/10/16 07/10/16 07/10/16 23:00 23:30 23:45 Temperature Pulse Rate 104 H 103 H 99 H Pulse Rate [ From Monitor] Respiratory 22 22 Rate Blood Pressure 118/78 120/77 119/79 O2 Sat by Pulse 100 100 100 Oximetry 07/11/16 07/11/16 07/11/16 00:00 00:30 01:00 Temperature 102.4 F H Pulse Rate 105 H 104 H 104 H Pulse Rate [ 104 H From Monitor] Respiratory 22 22 22 Rate Blood Pressure 122/77 125/82 123/81 O2 Sat by Pulse 100 100 100 Oximetry 07/11/16 07/11/16 07/11/16 01:24 01:30 02:00 Temperature Pulse Rate 104 H 102 H Pulse Rate [ From Monitor] Respiratory 22 22 22 Rate Blood Pressure 123/81 122/83 O2 Sat by Pulse 100 100 Oximetry 07/11/16 07/11/16 07/11/16 02:30 02:41 03:00 Temperature Pulse Rate 98 H 100 H 98 H Pulse Rate [ From Monitor] Respiratory 22 22 Rate Blood Pressure 119/78 113/76 O2 Sat by Pulse 99 98 Oximetry 07/11/16 07/11/16 07/11/16 03:30 04:00 04:30 Temperature Pulse Rate 97 H 91 H 85 Pulse Rate [ 85 From Monitor] Respiratory 22 22 22 Rate Blood Pressure 123/79 125/82 136/89 O2 Sat by Pulse 99 99 100 Oximetry 07/11/16 07/11/16 07/11/16 05:00 05:30 05:47 Temperature 99.1 F Pulse Rate 90 86 90 Pulse Rate [ From Monitor] Respiratory 12 22 Rate Blood Pressure 156/106 127/80 127/80 O2 Sat by Pulse 100 100 100 Oximetry 07/11/16 07/11/16 07/11/16 06:00 06:30 07:00 Temperature Pulse Rate 88 81 108 H Pulse Rate [ From Monitor] Respiratory 22 16 15 Rate Blood Pressure 131/88 154/109 167/118 O2 Sat by Pulse 99 98 98 Oximetry 07/11/16 07/11/16 07:30 08:00 Temperature 100.6 F H Pulse Rate 108 H Pulse Rate [ From Monitor] Respiratory 22 Rate Blood Pressure 128/87 O2 Sat by Pulse 96 Oximetry Constitutional: asleep, comatose (secondary to medication) Eyes: non-icteric ENT: oropharynx moist, other (orally intubated and sedated. Critically ill) Neck: supple, other (it is stiff and rigid, i am not able to make him flex forward, unable to tell if this is voluntary or involuntary) CBC and BMP: 07/10/16 03:22 07/10/16 03:22 ABG, PT/INR, D-dimer: ABG POC ABG pH 7.430 (7.35-7.45) 07/11/16 05:59 POC ABG pCO2 34.9 (35-45) L 07/11/16 05:59 POC ABG pO2 163 (80-105) H 07/11/16 05:59 POC ABG HCO3 23.2 07/11/16 05:59 POC ABG Total CO2 24 07/11/16 05:59 POC ABG O2 Sat 100 07/11/16 05:59 PT/INR, D-dimer PT 14.1 Sec. (12.2-14.9) 07/09/16 14:55 INR 1.10 (0.87-1.13) 07/09/16 14:55 Abnormal lab findings: Abnormal Labs 07/09/16 07/09/16 07/10/16 18:28 22:10 00:23 WBC RDW Lymph % (Auto) [place] % (Auto) [place] # Seg Neutrophils % Seg Neutrophils # POC ABG pH POC ABG pCO2 POC ABG pO2 Sodium Chloride Glucose POC Glucose 123 H 118 H Lactic Acid 2.4 H* Calcium AST ALT Albumin 07/10/16 07/10/16 07/10/16 03:22 03:22 05:35 WBC 17.4 H RDW 16.2 H Lymph % (Auto) 6.8 L [place] % (Auto) 7.7 H [place] # 1.3 H Seg Neutrophils % 85.3 H Seg Neutrophils # 14.8 H POC ABG pH POC ABG pCO2 POC ABG pO2 Sodium 129 L Chloride 92.8 L Glucose 115 H POC Glucose 106 H Lactic Acid Calcium 7.8 L AST 42 H ALT 79 H Albumin 3.2 L 07/10/16 07/11/16 05:48 05:59 WBC RDW Lymph % (Auto) [place] % (Auto) [place] # Seg Neutrophils % Seg Neutrophils # POC ABG pH 7.273 L POC ABG pCO2 53.4 H 34.9 L POC ABG pO2 113 H 163 H Sodium Chloride Glucose POC Glucose Lactic Acid Calcium AST ALT Albumin
--- NOTE | 2016-07-11 09:19 | XRay Report ---
Single view chest: Compared to/. History: Followup of respiratory failure. Findings: Cardiomegaly. Trachea is midline. Tip of endotracheal tube in normal position. Decreasing infiltrates right lower lobe. Normal CP angles. Impression: Decrease in infiltrates right lower lobe compared to previous study.
[2016-07-11] MEDS ORDERED: SIMPLE SYRUP FEEDTUBE PRN ×2 (09:34)
[2016-07-11] MEDS ORDERED: PANCREAZE DR 10,500 UNIT FEEDTUBE PRN (09:34)
[2016-07-11] MEDS ORDERED: SODIUM BICARBONATE FEEDTUBE PRN (09:34)
[2016-07-11] MEDS: LOVENOX SUB-Q SCH (09:59)
[2016-07-11] MEDS: ROCEPHIN/NS 1 GM/50 ML 1 GM/50 ML BAG IV SCH (09:59)
--- NOTE | 2016-07-11 10:41 | XRay Report ---
Flatplate of abdomen: History: Dobbhoff placement. Findings: Tip of Dobbhoff feeding tube is noted in stomach. Impression: Tip of Dobbhoff feeding tube is noted in stomach.
[2016-07-11 11:31] LABS: Basophils % (Auto) 0.2 % (0.0-1.8); Hematocrit 33.6 % (35.5-45.6); Hemoglobin 11.1 gm/dl (11.8-15.2); Mean Corpuscular HGB Conc 33 % (32-34); Mean Corpuscular Hemoglobin 30 pg (28-32); Mean Corpuscular Volume 90 fl (84-94); Platelet Count 166 K/mm3 (140-440); Red Blood Count 3.72 M/mm3 (3.65-5.03); Red Cell Distribution Width 16.2 % (13.2-15.2)
[2016-07-11 11:42] LABS: Anion Gap 17 mmol/L; Blood Urea Nitrogen 11 mg/dL (9-20); Calcium 8.2 mg/dL (8.4-10.2); Carbon Dioxide 25 mmol/L (22-30); Chloride 101.9 mmol/L (98-107); Glucose 95 mg/dL (75-100); Magnesium 2.1 mg/dL (1.7-2.3); Phosphorous 1.5 mg/dL (2.5-4.5); Potassium 3.7 mmol/L (3.6-5.0); Sodium 140 mmol/L (137-145)
[2016-07-11] MEDS: TAMIFLU PO SCH ×2 (12:20→22:00)
[2016-07-11] MEDS: NORVASC PO SCH (12:22)
--- NOTE | 2016-07-11 15:52 | Progress Note ---
Assessment and Plan - Patient Problems (1) Acute respiratory failure Current Visit: Yes Status: Acute Qualifiers: Respiratory failure complication: R Plan to address problem: Pulmonary consulted. continue vent support, wean vent as tolerated, Daily SBT and sedation holiday. The high probability of a clinically significant, sudden or life threatening deterioration of the [pulmonary, cardiac] system(s) required my full and direct attention, intervention and personal management. The aggregate critical care time was [45] minutes. This time is in addition to time spent performing reported procedures but includes the following: [x] Data Review and interpretation [x] Patient assessment and monitoring of vital signs [x] Documentation [x] Medication orders and management (2) Metabolic syndrome Current Visit: Yes Status: Acute Plan to address problem: supportive care (3) Encephalopathy Current Visit: Yes Status: Acute Plan to address problem: continue current therapy, empiric abx, supportive care. (4) Hypertensive emergency Current Visit: Yes Status: Acute Plan to address problem: monitor bp q shift, continue current therapy (5) DVT prophylaxis Current Visit: Yes Status: Acute History Interval history: Pt lying in bed, Pt intubated, sedated on vent support. Pt family at bedside. Discussed care plan and prognosis with family. Hospitalist Physical - Constitutional Vitals: Temp Pulse Resp BP Pulse Ox 100.7 F H 92 H 22 125/80 97 07/11/16 13:30 07/11/16 15:30 07/11/16 15:30 07/11/16 15:30 07/11/16 15:30 General appearance: Present: mild distress - Neck Neck: Present: supple - Respiratory Respiratory: bilateral: diminished - Cardiovascular Rhythm: regular Heart Sounds: Present: S1 & S2 - Extremities Extremities: no ischemia Extremity abnormal: edema Peripheral Pulses: within normal limits - Abdominal General gastrointestinal: soft, non-tender, non-distended, no hepatomegaly, no splenomegaly - Integumentary Integumentary: Present: clear, dry - Psychiatric Psychiatric: other (Intubated, sedated, on vent) - Neurologic Neurologic: no gait normal Results - Labs CBC & Chem 7: 07/11/16 11:09 07/11/16 11:09 Labs: Laboratory Last Values WBC 12.0 K/mm3 (4.5-11.0) H 07/11/16 11:09 RBC 3.72 M/mm3 (3.65-5.03) 07/11/16 11:09 Hgb 11.1 gm/dl (11.8-15.2) L 07/11/16 11:09 Hct 33.6 % (35.5-45.6) L 07/11/16 11:09 MCV 90 fl (84-94) 07/11/16 11:09 MCH 30 pg (28-32) 07/11/16 11:09 MCHC 33 % (32-34) 07/11/16 11:09 RDW 16.2 % (13.2-15.2) H 07/11/16 11:09 Plt Count 166 K/mm3 (140-440) 07/11/16 11:09 Lymph % (Auto) 8.9 % (13.4-35.0) L 07/11/16 11:09 [place] % (Auto) 8.8 % (0.0-7.3) H 07/11/16 11:09 Eos % (Auto) 0.0 % (0.0-4.3) 07/11/16 11:09 Baso % (Auto) 0.2 % (0.0-1.8) 07/11/16 11:09 Lymph # 1.1 K/mm3 (1.2-5.4) L 07/11/16 11:09 [place] # 1.1 K/mm3 (0.0-0.8) H 07/11/16 11:09 Eos # 0.0 K/mm3 (0.0-0.4) 07/11/16 11:09 Baso # 0.0 K/mm3 (0.0-0.1) 07/11/16 11:09 Add Manual Diff Complete 07/09/16 14:55 Total Counted 100 07/09/16 14:55 Seg Neutrophils % 82.1 % (40.0-70.0) H 07/11/16 11:09 Seg Neuts % (Manual) 88.0 % (40.0-70.0) H 07/09/16 14:55 Band Neutrophils % 0 % 07/09/16 14:55 Lymphocytes % (Manual) 6.0 % (13.4-35.0) L 07/09/16 14:55 Reactive Lymphs % (Man) 0 % 07/09/16 14:55 Monocytes % (Manual) 6.0 % (0.0-7.3) 07/09/16 14:55 Eosinophils % (Manual) 0 % (0.0-4.3) 07/09/16 14:55 Basophils % (Manual) 0 % (0.0-1.8) 07/09/16 14:55 Metamyelocytes % 0 % 07/09/16 14:55 Myelocytes % 0 % 07/09/16 14:55 Promyelocytes % 0 % 07/09/16 14:55 Blast Cells % 0 % 07/09/16 14:55 Nucleated RBC % Not Reportable 07/09/16 14:55 Seg Neutrophils # 9.8 K/mm3 (1.8-7.7) H 07/11/16 11:09 Seg Neutrophils # Man 12.9 K/mm3 (1.8-7.7) H 07/09/16 14:55 Band Neutrophils # 0.0 K/mm3 07/09/16 14:55 Lymphocytes # (Manual) 0.9 K/mm3 (1.2-5.4) L 07/09/16 14:55 Abs React Lymphs (Man) 0.0 K/mm3 07/09/16 14:55 Monocytes # (Manual) 0.9 K/mm3 (0.0-0.8) H 07/09/16 14:55 Eosinophils # (Manual) 0.0 K/mm3 (0.0-0.4) 07/09/16 14:55 Basophils # (Manual) 0.0 K/mm3 (0.0-0.1) 07/09/16 14:55 Metamyelocytes # 0.0 K/mm3 07/09/16 14:55 Myelocytes # 0.0 K/mm3 07/09/16 14:55 Promyelocytes # 0.0 K/mm3 07/09/16 14:55 Blast Cells # 0.0 K/mm3 07/09/16 14:55 WBC Morphology Not Reportable 07/09/16 14:55 Hypersegmented Neuts Not Reportable 07/09/16 14:55 Hyposegmented Neuts Not Reportable 07/09/16 14:55 Hypogranular Neuts Not Reportable 07/09/16 14:55 Smudge Cells Not Reportable 07/09/16 14:55 Toxic Granulation Not Reportable 07/09/16 14:55 Toxic Vacuolation Not Reportable 07/09/16 14:55 [place] Bodies Not Reportable 07/09/16 14:55 Pel[place]-Huet Anomaly Not Reportable 07/09/16 14:55 Lane Rods Not Reportable 07/09/16 14:55 Platelet Estimate Consistent w auto 07/09/16 14:55 Clumped Platelets Not Reportable 07/09/16 14:55 Plt Clumps, EDTA Not Reportable 07/09/16 14:55 Large Platelets Not Reportable 07/09/16 14:55 Giant Platelets Not Reportable 07/09/16 14:55 Platelet Satelliting Not Reportable 07/09/16 14:55 Plt Morphology Comment Not Reportable 07/09/16 14:55 RBC Morphology Not Reportable 07/09/16 14:55 Dimorphic RBCs Not Reportable 07/09/16 14:55 Polychromasia Not Reportable 07/09/16 14:55 Hypochromasia Not Reportable 07/09/16 14:55 Poikilocytosis Few 07/09/16 14:55 Anisocytosis 1+ 07/09/16 14:55 Microcytosis Not Reportable 07/09/16 14:55 Macrocytosis Not Reportable 07/09/16 14:55 Spherocytes Not Reportable 07/09/16 14:55 Pappenheimer Bodies Not Reportable 07/09/16 14:55 Sickle Cells Not Reportable 07/09/16 14:55 Target Cells Not Reportable 07/09/16 14:55 Tear Drop Cells Not Reportable 07/09/16 14:55 Ovalocytes Not Reportable 07/09/16 14:55 Helmet Cells Not Reportable 07/09/16 14:55 [place] Bodies Not Reportable 07/09/16 14:55 [place] Rings Not Reportable 07/09/16 14:55 [place] Cells Not Reportable 07/09/16 14:55 Bite Cells Not Reportable 07/09/16 14:55 Crenated Cell Not Reportable 07/09/16 14:55 Elliptocytes Not Reportable 07/09/16 14:55 Acanthocytes (Spur) Not Reportable 07/09/16 14:55 Rouleaux Not Reportable 07/09/16 14:55 Hemoglobin C Crystals Not Reportable 07/09/16 14:55 Schistocytes Not Reportable 07/09/16 14:55 Malaria parasites Not Reportable 07/09/16 14:55 [place] Bodies Not Reportable 07/09/16 14:55 Hem Pathologist Commnt No 07/09/16 14:55 PT 14.1 Sec. (12.2-14.9) 07/09/16 14:55 INR 1.10 (0.87-1.13) 07/09/16 14:55 POC ABG pH 7.430 (7.35-7.45) 07/11/16 05:59 POC ABG pCO2 34.9 (35-45) L 07/11/16 05:59 POC ABG pO2 163 (80-105) H 07/11/16 05:59 POC ABG HCO3 23.2 07/11/16 05:59 POC ABG Total CO2 24 07/11/16 05:59 POC ABG O2 Sat 100 07/11/16 05:59 POC ABG Base Excess -1 07/11/16 05:59 FiO2 50 % 07/11/16 05:59 Sodium 140 mmol/L (137-145) D 07/11/16 11:09 Potassium 3.7 mmol/L (3.6-5.0) 07/11/16 11:09 Chloride 101.9 mmol/L (98-107) 07/11/16 11:09 Carbon Dioxide 25 mmol/L (22-30) 07/11/16 11:09 Anion Gap 17 mmol/L 07/11/16 11:09 BUN 11 mg/dL (9-20) 07/11/16 11:09 Creatinine 1.0 mg/dL (0.8-1.5) 07/11/16 11:09 Estimated GFR > 60 ml/min 07/11/16 11:09 BUN/Creatinine Ratio 11.00 % 07/11/16 11:09 Glucose 95 mg/dL (75-100) 07/11/16 11:09 POC Glucose 106 (70-105) H 07/10/16 05:35 Lactic Acid 2.4 mmol/L (0.7-2.0) H* 07/09/16 18:28 Calcium 8.2 mg/dL (8.4-10.2) L 07/11/16 11:09 Phosphorus 1.5 mg/dL (2.5-4.5) L 07/11/16 11:09 Magnesium 2.1 mg/dL (1.7-2.3) 07/11/16 11:09 Total Bilirubin 1.1 mg/dL (0.1-1.2) 07/10/16 03:22 Direct Bilirubin 0.3 mg/dL (0-0.2) H 07/09/16 14:55 Indirect Bilirubin 0.6 mg/dL 07/09/16 14:55 AST 42 units/L (5-40) H 07/10/16 03:22 ALT 79 units/L (7-56) H 07/10/16 03:22 Alkaline Phosphatase 65 units/L (35-129) 07/10/16 03:22 Ammonia 30.0 umol/L (25-60) 07/09/16 14:55 Troponin T < 0.010 ng/mL (0.00-0.029) 07/09/16 14:55 C-Reactive Protein 11.60 mg/dL (0.00-1.30) H 07/09/16 14:55 Total Protein 7.0 g/dL (6.3-8.2) 07/10/16 03:22 Albumin 3.2 g/dL (3.9-5) L 07/10/16 03:22 Albumin/Globulin Ratio 0.8 % 07/10/16 03:22 Triglycerides 298 mg/dL (2-149) H 07/11/16 11:09 Urine Color Yellow (Yellow) 07/09/16 14:47 Urine Turbidity Clear (Clear) 07/09/16 14:47 Urine pH 7.0 (5.0-7.0) 07/09/16 14:47 Ur Specific [place] 1.012 (1.003-1.030) 07/09/16 14:47 Urine Protein 100 mg/dl mg/dL (Negative) 07/09/16 14:47 Urine Glucose (UA) >=500 mg/dL (Negative) 07/09/16 14:47 Urine Ketones Tr mg/dL (Negative) 07/09/16 14:47 Urine Blood Mod (Negative) 07/09/16 14:47 Urine Nitrite Neg (Negative) 07/09/16 14:47 Urine Bilirubin Neg (Negative) 07/09/16 14:47 Urine Urobilinogen < 2.0 mg/dL (<2.0) 07/09/16 14:47 Ur Leukocyte Esterase Neg (Negative) 07/09/16 14:47 Urine WBC (Auto) 1.0 /HPF (0.0-6.0) 07/09/16 14:47 Urine RBC (Auto) 11.0 /HPF (0.0-6.0) 07/09/16 14:47 Urine Mucus Few /HPF 07/09/16 14:47 Urine Opiates Screen Presumptive negative 07/09/16 14:47 Urine Methadone Screen Presumptive negative 07/09/16 14:47 Ur Barbiturates Screen Presumptive negative 07/09/16 14:47 Ur Phencyclidine Scrn Presumptive negative 07/09/16 14:47 Ur Amphetamines Screen Presumptive negative 07/09/16 14:47 U Benzodiazepines Scrn Presumptive negative 07/09/16 14:47 Urine Cocaine Screen Presumptive negative 07/09/16 14:47 U Marijuana (THC) Screen Presumptive negative 07/09/16 14:47 Drugs of Abuse Note Disclamer 07/09/16 14:47
[2016-07-11] MEDS ORDERED: S2 RACEPINEPHRINE 2.25% IH ONE (18:49)
[2016-07-11] MEDS ORDERED: NACL 0.9% NEBU ONE (18:54)
[2016-07-11] MEDS: APRESOLINE IV PRN (21:18)
[2016-07-12] MEDS: HALDOL IV PRN ×3 (02:10→13:30)
[2016-07-12] MEDS: ATIVAN IV PRN ×5 (02:10→21:15)
[2016-07-12] MEDS: APRESOLINE IV PRN (02:10)
[2016-07-12] MEDS: BENADRYL IV PRN ×4 (02:45→22:07)
[2016-07-12] MEDS: NACL 0.9% 1000 ML 1,000 ML IV SCH ×2 (02:45→08:47)
[2016-07-12] MEDS: CARDENE DRIP 40 MG/200 ML 40 MG/200 ML BAG IV SCH ×2 (03:12→21:20)
[2016-07-12] MEDS: ROCEPHIN/NS 1 GM/50 ML 1 GM/50 ML BAG IV SCH (09:26)
[2016-07-12] MEDS: NORVASC PO SCH (09:27)
[2016-07-12] MEDS: TAMIFLU PO SCH ×2 (09:28→21:27)
--- NOTE | 2016-07-12 09:30 | XRay Report ---
AP CHEST HISTORY: Followup respiratory failure. FINDINGS: Compared to 07/11/16. The patient has been extubated. Borderline heart size and pulmonary vascularity are stable. Opacity at the right lung base continues to improve. The lungs are generally clear. No pleural effusion or pneumothorax. Normal bony structures. IMPRESSION: No acute process.
--- NOTE | 2016-07-12 09:37 | Progress Note ---
Assessment and Plan Acute respiratory failure. Self extubated this morning. On V mask well tolerated Influenza Streptococcal pneumonia AMS Recommendations Continue antibiotics, Tamiflu and ceftriaxone Check blood culture sensitivity report Subjective Date of service: 07/12/16 Principal diagnosis: Influenza, Sterp.pneumonia Interval history: Slef extubated ealier today.Limited secretions Objective Vital Signs - 12hr 07/11/16 07/11/16 07/11/16 22:00 22:22 22:30 Temperature Pulse Rate Pulse Rate [ From Monitor] Pulse Rate [ Left Dorsalis Pedis] Pulse Rate [ Right Radial] Respiratory 24 Rate Blood Pressure 172/106 174/108 O2 Sat by Pulse 96 96 Oximetry 07/11/16 07/11/16 07/12/16 23:00 23:30 00:00 Temperature 99.0 F Pulse Rate 121 H 107 H 108 H Pulse Rate [ From Monitor] Pulse Rate [ Left Dorsalis Pedis] Pulse Rate [ Right Radial] Respiratory 22 21 17 Rate Blood Pressure 155/95 152/95 151/96 O2 Sat by Pulse 97 97 97 Oximetry 07/12/16 07/12/16 07/12/16 00:30 01:00 01:30 Temperature Pulse Rate 98 H 97 H 95 H Pulse Rate [ 98 H From Monitor] Pulse Rate [ Left Dorsalis Pedis] Pulse Rate [ Right Radial] Respiratory 26 H 25 H 28 H Rate Blood Pressure 166/100 165/110 171/104 O2 Sat by Pulse 97 97 99 Oximetry 07/12/16 07/12/16 07/12/16 02:00 02:30 03:00 Temperature Pulse Rate 109 H 104 H 111 H Pulse Rate [ From Monitor] Pulse Rate [ Left Dorsalis Pedis] Pulse Rate [ Right Radial] Respiratory 24 29 H 30 H Rate Blood Pressure 170/114 188/109 194/104 O2 Sat by Pulse 97 97 97 Oximetry 07/12/16 07/12/16 07/12/16 03:25 03:30 04:00 Temperature Pulse Rate 116 H 118 H 125 H Pulse Rate [ 126 H From Monitor] Pulse Rate [ Left Dorsalis Pedis] Pulse Rate [ Right Radial] Respiratory 33 H 35 H Rate Blood Pressure 178/104 175/96 O2 Sat by Pulse 95 95 Oximetry 07/12/16 07/12/16 07/12/16 04:28 04:30 05:00 Temperature 98.3 F Pulse Rate 122 H 119 H Pulse Rate [ From Monitor] Pulse Rate [ Left Dorsalis Pedis] Pulse Rate [ Right Radial] Respiratory 33 H 34 H Rate Blood Pressure 167/98 161/96 O2 Sat by Pulse 95 95 Oximetry 07/12/16 07/12/16 07/12/16 05:30 06:00 06:30 Temperature Pulse Rate 129 H 128 H 129 H Pulse Rate [ From Monitor] Pulse Rate [ Left Dorsalis Pedis] Pulse Rate [ Right Radial] Respiratory 36 H 38 H 36 H Rate Blood Pressure 161/93 168/92 142/91 O2 Sat by Pulse 96 94 95 Oximetry 07/12/16 07/12/16 07/12/16 07:00 07:30 07:41 Temperature 101.6 F H Pulse Rate 129 H 131 H Pulse Rate [ From Monitor] Pulse Rate [ 133 H Left Dorsalis Pedis] Pulse Rate [ 133 H Right Radial] Respiratory 40 H 39 H 41 H Rate Blood Pressure 129/90 134/89 O2 Sat by Pulse 95 95 96 Oximetry 07/12/16 09:27 Temperature Pulse Rate 130 H Pulse Rate [ From Monitor] Pulse Rate [ Left Dorsalis Pedis] Pulse Rate [ Right Radial] Respiratory Rate Blood Pressure 124/88 O2 Sat by Pulse Oximetry Constitutional: no acute distress, asleep Eyes: non-icteric ENT: oropharynx moist Neck: supple Ascultation: Bilateral: rhonchi (bilateral scatted) Neurologic: non-focal exam, unable to assess CBC and BMP: 07/11/16 11:09 07/11/16 11:09 ABG, PT/INR, D-dimer: ABG POC ABG pH 7.430 (7.35-7.45) 07/11/16 05:59 POC ABG pCO2 34.9 (35-45) L 07/11/16 05:59 POC ABG pO2 163 (80-105) H 07/11/16 05:59 POC ABG HCO3 23.2 07/11/16 05:59 POC ABG Total CO2 24 07/11/16 05:59 POC ABG O2 Sat 100 07/11/16 05:59 PT/INR, D-dimer PT 14.1 Sec. (12.2-14.9) 07/09/16 14:55 INR 1.10 (0.87-1.13) 07/09/16 14:55 Abnormal lab findings: Abnormal Labs 07/09/16 07/09/16 07/10/16 18:28 22:10 00:23 WBC Hgb Hct RDW Lymph % (Auto) [place] % (Auto) Lymph # [place] # Seg Neutrophils % Seg Neutrophils # POC ABG pH POC ABG pCO2 POC ABG pO2 Sodium Chloride Glucose POC Glucose 123 H 118 H Lactic Acid 2.4 H* Calcium Phosphorus AST ALT Albumin Triglycerides 07/10/16 07/10/16 07/10/16 03:22 03:22 05:35 WBC 17.4 H Hgb Hct RDW 16.2 H Lymph % (Auto) 6.8 L [place] % (Auto) 7.7 H Lymph # [place] # 1.3 H Seg Neutrophils % 85.3 H Seg Neutrophils # 14.8 H POC ABG pH POC ABG pCO2 POC ABG pO2 Sodium 129 L Chloride 92.8 L Glucose 115 H POC Glucose 106 H Lactic Acid Calcium 7.8 L Phosphorus AST 42 H ALT 79 H Albumin 3.2 L Triglycerides 07/10/16 07/11/16 07/11/16 05:48 05:59 11:09 WBC 12.0 H Hgb 11.1 L Hct 33.6 L RDW 16.2 H Lymph % (Auto) 8.9 L [place] % (Auto) 8.8 H Lymph # 1.1 L [place] # 1.1 H Seg Neutrophils % 82.1 H Seg Neutrophils # 9.8 H POC ABG pH 7.273 L POC ABG pCO2 53.4 H 34.9 L POC ABG pO2 113 H 163 H Sodium Chloride Glucose POC Glucose Lactic Acid Calcium Phosphorus AST ALT Albumin Triglycerides 07/11/16 07/11/16 11:09 11:09 WBC Hgb Hct RDW Lymph % (Auto) [place] % (Auto) Lymph # [place] # Seg Neutrophils % Seg Neutrophils # POC ABG pH POC ABG pCO2 POC ABG pO2 Sodium Chloride Glucose POC Glucose Lactic Acid Calcium 8.2 L Phosphorus 1.5 L AST ALT Albumin Triglycerides 298 H
[2016-07-12] MEDS: LOVENOX SUB-Q SCH (10:00)
--- NOTE | 2016-07-12 11:43 | XRay Report ---
AP ABDOMEN HISTORY: Feeding tube placement. FINDINGS: The feeding tube has been repositioned since yesterday's exam and is now coiled in the antrum of the stomach. The bowel gas pattern remains unremarkable. IMPRESSION: Feeding tube as described above.
--- NOTE | 2016-07-12 14:00 | XRay Report ---
SUPINE KUB: History: Dobbhoff tube placement. The feeding tube has been repositioned since earlier today at 1118 hrs. and now terminates in the fundus of the stomach. The bowel gas pattern remains unremarkable. IMPRESSION: No acute process.
--- NOTE | 2016-07-12 18:01 | Progress Note ---
Assessment and Plan - Patient Problems (1) Acute respiratory failure Current Visit: Yes Status: Acute Qualifiers: Respiratory failure complication: R Plan to address problem: Pulmonary consulted. continue vent support, wean vent as tolerated, Daily SBT and sedation holiday. The high probability of a clinically significant, sudden or life threatening deterioration of the [pulmonary, cardiac] system(s) required my full and direct attention, intervention and personal management. The aggregate critical care time was [45] minutes. This time is in addition to time spent performing reported procedures but includes the following: [x] Data Review and interpretation [x] Patient assessment and monitoring of vital signs [x] Documentation [x] Medication orders and management (2) Metabolic syndrome Current Visit: Yes Status: Acute Plan to address problem: supportive care (3) Encephalopathy Current Visit: Yes Status: Acute Plan to address problem: continue current therapy, empiric abx, supportive care. (4) Hypertensive emergency Current Visit: Yes Status: Acute Plan to address problem: monitor bp q shift, continue current therapy (5) DVT prophylaxis Current Visit: Yes Status: Acute History Interval history: Pt lying in bed, Pt intubated, sedated on vent support. Discussed care plan and prognosis with family. Hospitalist Physical - Constitutional Vitals: Temp Pulse Resp BP Pulse Ox 101.8 F H 128 H 38 H 140/89 97 07/12/16 11:00 07/12/16 15:00 07/12/16 15:00 07/12/16 15:00 07/12/16 15:00 General appearance: Present: mild distress - EENT ENT: hearing intact - Neck Neck: Present: supple - Respiratory Respiratory: bilateral: diminished - Cardiovascular Rhythm: regular Heart Sounds: Present: S1 & S2 - Extremities Extremities: no ischemia Peripheral Pulses: within normal limits - Abdominal General gastrointestinal: soft, non-tender, non-distended - Integumentary Integumentary: Present: clear, dry - Neurologic Neurologic: no gait normal Results - Labs CBC & Chem 7: 07/11/16 11:09 07/11/16 11:09 Labs: Laboratory Last Values WBC 12.0 K/mm3 (4.5-11.0) H 07/11/16 11:09 RBC 3.72 M/mm3 (3.65-5.03) 07/11/16 11:09 Hgb 11.1 gm/dl (11.8-15.2) L 07/11/16 11:09 Hct 33.6 % (35.5-45.6) L 07/11/16 11:09 MCV 90 fl (84-94) 07/11/16 11:09 MCH 30 pg (28-32) 07/11/16 11:09 MCHC 33 % (32-34) 07/11/16 11:09 RDW 16.2 % (13.2-15.2) H 07/11/16 11:09 Plt Count 166 K/mm3 (140-440) 07/11/16 11:09 Lymph % (Auto) 8.9 % (13.4-35.0) L 07/11/16 11:09 [place] % (Auto) 8.8 % (0.0-7.3) H 07/11/16 11:09 Eos % (Auto) 0.0 % (0.0-4.3) 07/11/16 11:09 Baso % (Auto) 0.2 % (0.0-1.8) 07/11/16 11:09 Lymph # 1.1 K/mm3 (1.2-5.4) L 07/11/16 11:09 [place] # 1.1 K/mm3 (0.0-0.8) H 07/11/16 11:09 Eos # 0.0 K/mm3 (0.0-0.4) 07/11/16 11:09 Baso # 0.0 K/mm3 (0.0-0.1) 07/11/16 11:09 Add Manual Diff Complete 07/09/16 14:55 Total Counted 100 07/09/16 14:55 Seg Neutrophils % 82.1 % (40.0-70.0) H 07/11/16 11:09 Seg Neuts % (Manual) 88.0 % (40.0-70.0) H 07/09/16 14:55 Band Neutrophils % 0 % 07/09/16 14:55 Lymphocytes % (Manual) 6.0 % (13.4-35.0) L 07/09/16 14:55 Reactive Lymphs % (Man) 0 % 07/09/16 14:55 Monocytes % (Manual) 6.0 % (0.0-7.3) 07/09/16 14:55 Eosinophils % (Manual) 0 % (0.0-4.3) 07/09/16 14:55 Basophils % (Manual) 0 % (0.0-1.8) 07/09/16 14:55 Metamyelocytes % 0 % 07/09/16 14:55 Myelocytes % 0 % 07/09/16 14:55 Promyelocytes % 0 % 07/09/16 14:55 Blast Cells % 0 % 07/09/16 14:55 Nucleated RBC % Not Reportable 07/09/16 14:55 Seg Neutrophils # 9.8 K/mm3 (1.8-7.7) H 07/11/16 11:09 Seg Neutrophils # Man 12.9 K/mm3 (1.8-7.7) H 07/09/16 14:55 Band Neutrophils # 0.0 K/mm3 07/09/16 14:55 Lymphocytes # (Manual) 0.9 K/mm3 (1.2-5.4) L 07/09/16 14:55 Abs React Lymphs (Man) 0.0 K/mm3 07/09/16 14:55 Monocytes # (Manual) 0.9 K/mm3 (0.0-0.8) H 07/09/16 14:55 Eosinophils # (Manual) 0.0 K/mm3 (0.0-0.4) 07/09/16 14:55 Basophils # (Manual) 0.0 K/mm3 (0.0-0.1) 07/09/16 14:55 Metamyelocytes # 0.0 K/mm3 07/09/16 14:55 Myelocytes # 0.0 K/mm3 07/09/16 14:55 Promyelocytes # 0.0 K/mm3 07/09/16 14:55 Blast Cells # 0.0 K/mm3 07/09/16 14:55 WBC Morphology Not Reportable 07/09/16 14:55 Hypersegmented Neuts Not Reportable 07/09/16 14:55 Hyposegmented Neuts Not Reportable 07/09/16 14:55 Hypogranular Neuts Not Reportable 07/09/16 14:55 Smudge Cells Not Reportable 07/09/16 14:55 Toxic Granulation Not Reportable 07/09/16 14:55 Toxic Vacuolation Not Reportable 07/09/16 14:55 Dohle Bodies Not Reportable 07/09/16 14:55 Pelger-Huet Anomaly Not Reportable 07/09/16 14:55 Lane Rods Not Reportable 07/09/16 14:55 Platelet Estimate Consistent w auto 07/09/16 14:55 Clumped Platelets Not Reportable 07/09/16 14:55 Plt Clumps, EDTA Not Reportable 07/09/16 14:55 Large Platelets Not Reportable 07/09/16 14:55 Giant Platelets Not Reportable 07/09/16 14:55 Platelet Satelliting Not Reportable 07/09/16 14:55 Plt Morphology Comment Not Reportable 07/09/16 14:55 RBC Morphology Not Reportable 07/09/16 14:55 Dimorphic RBCs Not Reportable 07/09/16 14:55 Polychromasia Not Reportable 07/09/16 14:55 Hypochromasia Not Reportable 07/09/16 14:55 Poikilocytosis Few 07/09/16 14:55 Anisocytosis 1+ 07/09/16 14:55 Microcytosis Not Reportable 07/09/16 14:55 Macrocytosis Not Reportable 07/09/16 14:55 Spherocytes Not Reportable 07/09/16 14:55 Pappenheimer Bodies Not Reportable 07/09/16 14:55 Sickle Cells Not Reportable 07/09/16 14:55 Target Cells Not Reportable 07/09/16 14:55 Tear Drop Cells Not Reportable 07/09/16 14:55 Ovalocytes Not Reportable 07/09/16 14:55 Helmet Cells Not Reportable 07/09/16 14:55 Yoon-[place]andora Bodies Not Reportable 07/09/16 14:55 [place]wick Rings Not Reportable 07/09/16 14:55 Sofia Cells Not Reportable 07/09/16 14:55 Bite Cells Not Reportable 07/09/16 14:55 Crenated Cell Not Reportable 07/09/16 14:55 Elliptocytes Not Reportable 07/09/16 14:55 Acanthocytes (Spur) Not Reportable 07/09/16 14:55 Rouleaux Not Reportable 07/09/16 14:55 Hemoglobin C Crystals Not Reportable 07/09/16 14:55 Schistocytes Not Reportable 07/09/16 14:55 Malaria parasites Not Reportable 07/09/16 14:55 Tobias Bodies Not Reportable 07/09/16 14:55 Hem Pathologist Commnt No 07/09/16 14:55 PT 14.1 Sec. (12.2-14.9) 07/09/16 14:55 INR 1.10 (0.87-1.13) 07/09/16 14:55 POC ABG pH 7.430 (7.35-7.45) 07/11/16 05:59 POC ABG pCO2 34.9 (35-45) L 07/11/16 05:59 POC ABG pO2 163 (80-105) H 07/11/16 05:59 POC ABG HCO3 23.2 07/11/16 05:59 POC ABG Total CO2 24 07/11/16 05:59 POC ABG O2 Sat 100 07/11/16 05:59 POC ABG Base Excess -1 07/11/16 05:59 FiO2 50 % 07/11/16 05:59 Sodium 140 mmol/L (137-145) D 07/11/16 11:09 Potassium 3.7 mmol/L (3.6-5.0) 07/11/16 11:09 Chloride 101.9 mmol/L (98-107) 07/11/16 11:09 Carbon Dioxide 25 mmol/L (22-30) 07/11/16 11:09 Anion Gap 17 mmol/L 07/11/16 11:09 BUN 11 mg/dL (9-20) 07/11/16 11:09 Creatinine 1.0 mg/dL (0.8-1.5) 07/11/16 11:09 Estimated GFR > 60 ml/min 07/11/16 11:09 BUN/Creatinine Ratio 11.00 % 07/11/16 11:09 Glucose 95 mg/dL (75-100) 07/11/16 11:09 POC Glucose 106 (70-105) H 07/10/16 05:35 Lactic Acid 2.4 mmol/L (0.7-2.0) H* 07/09/16 18:28 Calcium 8.2 mg/dL (8.4-10.2) L 07/11/16 11:09 Phosphorus 1.5 mg/dL (2.5-4.5) L 07/11/16 11:09 Magnesium 2.1 mg/dL (1.7-2.3) 07/11/16 11:09 Total Bilirubin 1.1 mg/dL (0.1-1.2) 07/10/16 03:22 Direct Bilirubin 0.3 mg/dL (0-0.2) H 07/09/16 14:55 Indirect Bilirubin 0.6 mg/dL 07/09/16 14:55 AST 42 units/L (5-40) H 07/10/16 03:22 ALT 79 units/L (7-56) H 07/10/16 03:22 Alkaline Phosphatase 65 units/L (35-129) 07/10/16 03:22 Ammonia 30.0 umol/L (25-60) 07/09/16 14:55 Troponin T < 0.010 ng/mL (0.00-0.029) 07/09/16 14:55 C-Reactive Protein 11.60 mg/dL (0.00-1.30) H 07/09/16 14:55 Total Protein 7.0 g/dL (6.3-8.2) 07/10/16 03:22 Albumin 3.2 g/dL (3.9-5) L 07/10/16 03:22 Albumin/Globulin Ratio 0.8 % 07/10/16 03:22 Triglycerides 298 mg/dL (2-149) H 07/11/16 11:09 Urine Color Yellow (Yellow) 07/09/16 14:47 Urine Turbidity Clear (Clear) 07/09/16 14:47 Urine pH 7.0 (5.0-7.0) 07/09/16 14:47 Ur Specific [place] 1.012 (1.003-1.030) 07/09/16 14:47 Urine Protein 100 mg/dl mg/dL (Negative) 07/09/16 14:47 Urine Glucose (UA) >=500 mg/dL (Negative) 07/09/16 14:47 Urine Ketones Tr mg/dL (Negative) 07/09/16 14:47 Urine Blood Mod (Negative) 07/09/16 14:47 Urine Nitrite Neg (Negative) 07/09/16 14:47 Urine Bilirubin Neg (Negative) 07/09/16 14:47 Urine Urobilinogen < 2.0 mg/dL (<2.0) 07/09/16 14:47 Ur Leukocyte Esterase Neg (Negative) 07/09/16 14:47 Urine WBC (Auto) 1.0 /HPF (0.0-6.0) 07/09/16 14:47 Urine RBC (Auto) 11.0 /HPF (0.0-6.0) 07/09/16 14:47 Urine Mucus Few /HPF 07/09/16 14:47 Urine Opiates Screen Presumptive negative 07/09/16 14:47 Urine Methadone Screen Presumptive negative 07/09/16 14:47 Ur Barbiturates Screen Presumptive negative 07/09/16 14:47 Ur Phencyclidine Scrn Presumptive negative 07/09/16 14:47 Ur Amphetamines Screen Presumptive negative 07/09/16 14:47 U Benzodiazepines Scrn Presumptive negative 07/09/16 14:47 Urine Cocaine Screen Presumptive negative 07/09/16 14:47 U Marijuana (THC) Screen Presumptive negative 07/09/16 14:47 Drugs of Abuse Note Disclamer 07/09/16 14:47
[2016-07-12] MEDS ORDERED: LIBRIUM PO PRN (19:19)
[2016-07-12] MEDS ORDERED: ATIVAN IV PRN (19:19)
[2016-07-12 20:56] LABS: ISTAT Base Excess -2; ISTAT HCO3 22.1; ISTAT PCO2 34.2 (35-45); ISTAT PH 7.418 (7.35-7.45); ISTAT PO2 79 (80-105); ISTAT SO2 96; ISTAT TCO2 23
[2016-07-13] MEDS: CARDENE DRIP 40 MG/200 ML 40 MG/200 ML BAG IV SCH ×6 (00:20→22:51)
[2016-07-13 01:07] LABS: Magnesium 2.2 mg/dL (1.7-2.3)
[2016-07-13] MEDS: ATIVAN IV PRN (01:49)
[2016-07-13] MEDS: NACL 0.9% 1000 ML 1,000 ML IV SCH ×2 (03:11→15:41)
[2016-07-13] MEDS: BENADRYL IV PRN ×2 (06:09→17:45)
[2016-07-13 08:06] LABS: Hematocrit 37.3 % (35.5-45.6); Hemoglobin 12.6 gm/dl (11.8-15.2); Mean Corpuscular HGB Conc 34 % (32-34); Mean Corpuscular Hemoglobin 30 pg (28-32); Mean Corpuscular Volume 88 fl (84-94); Platelet Count 238 K/mm3 (140-440); Red Blood Count 4.22 M/mm3 (3.65-5.03); Red Cell Distribution Width 15.7 % (13.2-15.2); White Blood Count 10.5 K/mm3 (4.5-11.0)
[2016-07-13 08:20] LABS: Alanine Aminotransferase 120 units/L (7-56); Albumin/Globulin Ratio 0.7 %; Alkaline Phosphatase 80 units/L (35-129); Anion Gap 20 mmol/L; BUN/Creatinine Ratio 17.77; Bilirubin,Total 1.4 mg/dL (0.1-1.2); Blood Urea Nitrogen 16 mg/dL (9-20); Calcium 8.2 mg/dL (8.4-10.2); Carbon Dioxide 21 mmol/L (22-30); Chloride 98.8 mmol/L (98-107); Glucose 111 mg/dL (75-100); Potassium 3.3 mmol/L (3.6-5.0); Sodium 136 mmol/L (137-145); Total Protein 7.4 g/dL (6.3-8.2)
[2016-07-13 08:46] LABS: Basophils % (Manual) 0 % (0.0-1.8); Blastocytes % (Manual) 0 %
[2016-07-13 08:47] LABS: Diff Status Complete; RBC Morphology Normal
[2016-07-13] MEDS: TAMIFLU PO SCH ×2 (10:00→22:54)
[2016-07-13] MEDS: NORVASC PO SCH (10:00)
[2016-07-13] MEDS: ROCEPHIN/NS 1 GM/50 ML 1 GM/50 ML BAG IV SCH (10:00)
[2016-07-13] MEDS: LOVENOX SUB-Q SCH (10:00)
--- NOTE | 2016-07-13 10:06 | XRay Report ---
AP CHEST: HISTORY: Respiratory failure. FINDINGS: Pnkenqmcjv-[id number]-[id number] cardiomegaly is noted. Pulmonary vascularity is within normal limits. The lungs are clear. No evidence for pneumonia, CHF or pneumothorax. A feeding tube terminates in the stomach. No overwhelming change since 07/12/16. IMPRESSION: Tzpjijogcn-az-[id number] cardiomegaly. Lungs clear.
--- NOTE | 2016-07-13 10:17 | Progress Note ---
Assessment and Plan Acute respiratory failure. Clinically deteriorated this morning with what appeared to be septic response Sever sepsis Influenza Streptococcal pneumonia AMS. Secondary to the above Recommendations Start ABGs Attending nothing by mouth. No vomiting reported overnight I asked nursing to review residuals in case noninvasive ventilation as needed Discussed immediate orders with nursing and respiratory staff. 35 minutes spent in [id number] evaluation and coordination of care Subjective Principal diagnosis: Influenza, Strep.pneumonia sepsis Interval history: Responsive at the bedside, lethargic. Tachypneic Objective Vital Signs - 12hr 07/12/16 07/12/16 07/12/16 22:30 23:00 23:05 Temperature Pulse Rate 145 H 139 H Respiratory 29 H 45 H Rate Blood Pressure 153/82 152/77 O2 Sat by Pulse 95 96 98 Oximetry 07/12/16 07/13/16 07/13/16 23:30 00:00 00:05 Temperature 102.7 F H Pulse Rate 139 H 142 H Respiratory 47 H 45 H 45 H Rate Blood Pressure 141/77 154/78 154/78 O2 Sat by Pulse 95 94 94 Oximetry 07/13/16 07/13/16 07/13/16 00:30 01:00 01:30 Temperature Pulse Rate 136 H 141 H 138 H Respiratory 47 H 47 H 45 H Rate Blood Pressure 154/81 143/81 144/81 O2 Sat by Pulse 96 94 95 Oximetry 07/13/16 07/13/16 07/13/16 01:45 02:00 02:30 Temperature Pulse Rate 141 H 142 H Respiratory 46 H 36 H Rate Blood Pressure 157/76 142/74 O2 Sat by Pulse 95 94 93 Oximetry 07/13/16 07/13/16 07/13/16 02:40 03:00 03:30 Temperature Pulse Rate 139 H 141 H Respiratory 47 H 49 H Rate Blood Pressure 140/82 136/76 O2 Sat by Pulse 95 93 93 Oximetry 07/13/16 07/13/16 07/13/16 04:01 04:05 04:30 Temperature 101.8 F H Pulse Rate 142 H 142 H Respiratory 36 H 32 H 32 H Rate Blood Pressure 149/76 132/75 132/75 O2 Sat by Pulse 95 95 94 Oximetry 07/13/16 07/13/16 07/13/16 05:00 05:30 06:00 Temperature Pulse Rate 140 H 138 H 133 H Respiratory 41 H 26 H 46 H Rate Blood Pressure 141/73 129/78 139/76 O2 Sat by Pulse 95 94 94 Oximetry 07/13/16 07/13/16 07/13/16 06:10 06:30 07:00 Temperature Pulse Rate 142 H 135 H 135 H Respiratory 45 H 48 H 48 H Rate Blood Pressure 138/80 138/78 O2 Sat by Pulse 94 95 Oximetry 07/13/16 07/13/16 07/13/16 07:18 07:30 08:00 Temperature 101.8 F H Pulse Rate 135 H 135 H Respiratory 42 H 37 H Rate Blood Pressure 137/81 143/83 O2 Sat by Pulse 95 Oximetry 07/13/16 08:30 Temperature Pulse Rate 127 H Respiratory 40 H Rate Blood Pressure 146/77 O2 Sat by Pulse Oximetry Constitutional: asleep, other (moderate respiratory distress) Eyes: non-icteric ENT: oropharynx moist Neck: supple Ascultation: Bilateral: rhonchi (bilateral coarse rhonchi) Cardiovascular: regular rate and rhythm, other (tachycardic) Integumentary: other (sweating) Neurologic: non-focal exam, unable to assess, other (the target) CBC and BMP: 07/13/16 07:47 07/13/16 07:47 ABG, PT/INR, D-dimer: ABG POC ABG pH 7.418 (7.35-7.45) 07/12/16 20:49 POC ABG pCO2 34.2 (35-45) L 07/12/16 20:49 POC ABG pO2 79 (80-105) L 07/12/16 20:49 POC ABG HCO3 22.1 07/12/16 20:49 POC ABG Total CO2 23 07/12/16 20:49 POC ABG O2 Sat 96 07/12/16 20:49 PT/INR, D-dimer PT 14.1 Sec. (12.2-14.9) 07/09/16 14:55 INR 1.10 (0.87-1.13) 07/09/16 14:55 Abnormal lab findings: Abnormal Labs 07/09/16 07/09/16 07/10/16 18:28 22:10 00:23 WBC Hgb Hct RDW Lymph % (Auto) [place] % (Auto) Lymph # [place] # Seg Neutrophils % Seg Neuts % (Manual) Seg Neutrophils # Seg Neutrophils # Man POC ABG pH POC ABG pCO2 POC ABG pO2 Sodium Potassium Chloride Carbon Dioxide Glucose POC Glucose 123 H 118 H Lactic Acid 2.4 H* Calcium Phosphorus Total Bilirubin AST ALT Albumin Triglycerides 07/10/16 07/10/16 07/10/16 03:22 03:22 05:35 WBC 17.4 H Hgb Hct RDW 16.2 H Lymph % (Auto) 6.8 L [place] % (Auto) 7.7 H Lymph # [place] # 1.3 H Seg Neutrophils % 85.3 H Seg Neuts % (Manual) Seg Neutrophils # 14.8 H Seg Neutrophils # Man POC ABG pH POC ABG pCO2 POC ABG pO2 Sodium 129 L Potassium Chloride 92.8 L Carbon Dioxide Glucose 115 H POC Glucose 106 H Lactic Acid Calcium 7.8 L Phosphorus Total Bilirubin AST 42 H ALT 79 H Albumin 3.2 L Triglycerides 07/10/16 07/11/16 07/11/16 05:48 05:59 11:09 WBC 12.0 H Hgb 11.1 L Hct 33.6 L RDW 16.2 H Lymph % (Auto) 8.9 L [place] % (Auto) 8.8 H Lymph # 1.1 L [place] # 1.1 H Seg Neutrophils % 82.1 H Seg Neuts % (Manual) Seg Neutrophils # 9.8 H Seg Neutrophils # Man POC ABG pH 7.273 L POC ABG pCO2 53.4 H 34.9 L POC ABG pO2 113 H 163 H Sodium Potassium Chloride Carbon Dioxide Glucose POC Glucose Lactic Acid Calcium Phosphorus Total Bilirubin AST ALT Albumin Triglycerides 07/11/16 07/11/16 07/12/16 11:09 11:09 20:49 WBC Hgb Hct RDW Lymph % (Auto) [place] % (Auto) Lymph # [place] # Seg Neutrophils % Seg Neuts % (Manual) Seg Neutrophils # Seg Neutrophils # Man POC ABG pH POC ABG pCO2 34.2 L POC ABG pO2 79 L Sodium Potassium Chloride Carbon Dioxide Glucose POC Glucose Lactic Acid Calcium 8.2 L Phosphorus 1.5 L Total Bilirubin AST ALT Albumin Triglycerides 298 H 07/12/16 07/13/16 07/13/16 23:36 07:47 07:47 WBC Hgb Hct RDW 15.7 H Lymph % (Auto) [place] % (Auto) Lymph # [place] # Seg Neutrophils % Seg Neuts % (Manual) 74.0 H Seg Neutrophils # Seg Neutrophils # Man 7.8 H POC ABG pH POC ABG pCO2 POC ABG pO2 Sodium 136 L Potassium 3.3 L Chloride Carbon Dioxide 21 L Glucose 111 H POC Glucose Lactic Acid Calcium 8.2 L Phosphorus 2.0 L D Total Bilirubin 1.4 H AST 101 H ALT 120 H Albumin 3.0 L Triglycerides
[2016-07-13 11:15] LABS: ISTAT Base Excess -2; ISTAT HCO3 22.6; ISTAT PCO2 35.9 (35-45); ISTAT PH 7.408 (7.35-7.45); ISTAT PO2 79 (80-105); ISTAT SO2 96; ISTAT TCO2 24
[2016-07-13] MEDS: ATIVAN PO PRN (15:42)
--- NOTE | 2016-07-13 18:19 | Progress Note ---
Assessment and Plan - Patient Problems (1) Acute respiratory failure Current Visit: Yes Status: Acute Qualifiers: Respiratory failure complication: R Plan to address problem: Patient is on BiPAP, oxygen support, pulmonary on board (2) Altered mental status Current Visit: Yes Status: Acute Qualifiers: Altered mental status type: delirium Coma depth: C Coma timing: C Qualified Code(s): R41.0 - Disorientation, unspecified Plan to address problem: Supportive care Treating Underlying cause (3) Encephalopathy Current Visit: Yes Status: Acute Plan to address problem: Supportive Care (4) Febrile illness, acute Current Visit: Yes Status: Acute Plan to address problem: Likely to pneumonia and flu, and is on antibiotics and Tamiflu (5) Hypertensive emergency Current Visit: Yes Status: Acute Plan to address problem: Continue blood pressure medications as needed History Interval history: Patient is clinically worsened Hospitalist Physical - Physical exam Narrative exam: In cardiopulmonary distress. Patient is on BiPAP Vital signs as documented. Head exam is unremarkable. No scleral icterus . Neck is without jugular venous distension, thyromegaly, or carotid bruits. Lungs are clear to auscultation. Patient is tight tachpnoeic Cardiac exam reveals regular rate and Rhythm. First and second heart sounds normal. No murmurs, rubs or gallops. Abdominal exam reveals normal bowel sounds, no masses, no organomegaly and no aortic enlargement. Extremities are nonedematous and both femoral and pedal pulses are normal. 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 - Constitutional Vitals: Temp Pulse Resp BP Pulse Ox 100.8 F H 127 H 43 H 135/74 93 07/13/16 16:00 07/13/16 18:00 07/13/16 18:00 07/13/16 18:00 07/13/16 18:00 General appearance: Present: mild distress Results - Labs CBC & Chem 7: 07/13/16 07:47 07/13/16 07:47 Labs: Laboratory Last Values WBC 10.5 K/mm3 (4.5-11.0) 07/13/16 07:47 RBC 4.22 M/mm3 (3.65-5.03) 07/13/16 07:47 Hgb 12.6 gm/dl (11.8-15.2) 07/13/16 07:47 Hct 37.3 % (35.5-45.6) 07/13/16 07:47 MCV 88 fl (84-94) 07/13/16 07:47 MCH 30 pg (28-32) 07/13/16 07:47 MCHC 34 % (32-34) 07/13/16 07:47 RDW 15.7 % (13.2-15.2) H 07/13/16 07:47 Plt Count 238 K/mm3 (140-440) 07/13/16 07:47 Lymph % (Auto) 8.9 % (13.4-35.0) L 07/11/16 11:09 [place] % (Auto) 8.8 % (0.0-7.3) H 07/11/16 11:09 Eos % (Auto) 0.0 % (0.0-4.3) 07/11/16 11:09 Baso % (Auto) 0.2 % (0.0-1.8) 07/11/16 11:09 Lymph # 1.1 K/mm3 (1.2-5.4) L 07/11/16 11:09 [place] # 1.1 K/mm3 (0.0-0.8) H 07/11/16 11:09 Eos # 0.0 K/mm3 (0.0-0.4) 07/11/16 11:09 Baso # 0.0 K/mm3 (0.0-0.1) 07/11/16 11:09 Add Manual Diff Complete 07/13/16 07:47 Total Counted 100 07/13/16 07:47 Seg Neutrophils % 82.1 % (40.0-70.0) H 07/11/16 11:09 Seg Neuts % (Manual) 74.0 % (40.0-70.0) H 07/13/16 07:47 Band Neutrophils % 3.0 % 07/13/16 07:47 Lymphocytes % (Manual) 15.0 % (13.4-35.0) 07/13/16 07:47 Reactive Lymphs % (Man) 0 % 07/13/16 07:47 Monocytes % (Manual) 7.0 % (0.0-7.3) 07/13/16 07:47 Eosinophils % (Manual) 1.0 % (0.0-4.3) 07/13/16 07:47 Basophils % (Manual) 0 % (0.0-1.8) 07/13/16 07:47 Metamyelocytes % 0 % 07/13/16 07:47 Myelocytes % 0 % 07/13/16 07:47 Promyelocytes % 0 % 07/13/16 07:47 Blast Cells % 0 % 07/13/16 07:47 Nucleated RBC % Not Reportable 07/13/16 07:47 Seg Neutrophils # 9.8 K/mm3 (1.8-7.7) H 07/11/16 11:09 Seg Neutrophils # Man 7.8 K/mm3 (1.8-7.7) H 07/13/16 07:47 Band Neutrophils # 0.3 K/mm3 07/13/16 07:47 Lymphocytes # (Manual) 1.6 K/mm3 (1.2-5.4) 07/13/16 07:47 Abs React Lymphs (Man) 0.0 K/mm3 07/13/16 07:47 Monocytes # (Manual) 0.7 K/mm3 (0.0-0.8) 07/13/16 07:47 Eosinophils # (Manual) 0.1 K/mm3 (0.0-0.4) 07/13/16 07:47 Basophils # (Manual) 0.0 K/mm3 (0.0-0.1) 07/13/16 07:47 Metamyelocytes # 0.0 K/mm3 07/13/16 07:47 Myelocytes # 0.0 K/mm3 07/13/16 07:47 Promyelocytes # 0.0 K/mm3 07/13/16 07:47 Blast Cells # 0.0 K/mm3 07/13/16 07:47 WBC Morphology Not Reportable 07/13/16 07:47 Hypersegmented Neuts Not Reportable 07/13/16 07:47 Hyposegmented Neuts Not Reportable 07/13/16 07:47 Hypogranular Neuts Not Reportable 07/13/16 07:47 Smudge Cells Not Reportable 07/13/16 07:47 Toxic Granulation Not Reportable 07/13/16 07:47 Toxic Vacuolation Not Reportable 07/13/16 07:47 Dohle Bodies Not Reportable 07/13/16 07:47 Pelger-Huet Anomaly Not Reportable 07/13/16 07:47 Lane Rods Not Reportable 07/13/16 07:47 Platelet Estimate Appears normal 07/13/16 07:47 Clumped Platelets Not Reportable 07/13/16 07:47 Plt Clumps, EDTA Not Reportable 07/13/16 07:47 Large Platelets Not Reportable 07/13/16 07:47 Giant Platelets Not Reportable 07/13/16 07:47 Platelet Satelliting Not Reportable 07/13/16 07:47 Plt Morphology Comment Not Reportable 07/13/16 07:47 RBC Morphology Normal 07/13/16 07:47 Dimorphic RBCs Not Reportable 07/13/16 07:47 Polychromasia Not Reportable 07/13/16 07:47 Hypochromasia Not Reportable 07/13/16 07:47 Poikilocytosis Not Reportable 07/13/16 07:47 Anisocytosis Not Reportable 07/13/16 07:47 Microcytosis Not Reportable 07/13/16 07:47 Macrocytosis Not Reportable 07/13/16 07:47 Spherocytes Not Reportable 07/13/16 07:47 Pappenheimer Bodies Not Reportable 07/13/16 07:47 Sickle Cells Not Reportable 07/13/16 07:47 Target Cells Not Reportable 07/13/16 07:47 Tear Drop Cells Not Reportable 07/13/16 07:47 Ovalocytes Not Reportable 07/13/16 07:47 Helmet Cells Not Reportable 07/13/16 07:47 [place] Bodies Not Reportable 07/13/16 07:47 [place] Rings Not Reportable 07/13/16 07:47 [place] Cells Not Reportable 07/13/16 07:47 Bite Cells Not Reportable 07/13/16 07:47 Crenated Cell Not Reportable 07/13/16 07:47 Elliptocytes Not Reportable 07/13/16 07:47 Acanthocytes (Spur) Not Reportable 07/13/16 07:47 Rouleaux Not Reportable 07/13/16 07:47 Hemoglobin C Crystals Not Reportable 07/13/16 07:47 Schistocytes Not Reportable 07/13/16 07:47 Malaria parasites Not Reportable 07/13/16 07:47 [place]ias Bodies Not Reportable 07/13/16 07:47 Hem Pathologist Commnt No 07/13/16 07:47 PT 14.1 Sec. (12.2-14.9) 07/09/16 14:55 INR 1.10 (0.87-1.13) 07/09/16 14:55 POC ABG pH 7.408 (7.35-7.45) 07/13/16 11:11 POC ABG pCO2 35.9 (35-45) 07/13/16 11:11 POC ABG pO2 79 (80-105) L 07/13/16 11:11 POC ABG HCO3 22.6 07/13/16 11:11 POC ABG Total CO2 24 07/13/16 11:11 POC ABG O2 Sat 96 07/13/16 11:11 POC ABG Base Excess -2 07/13/16 11:11 FiO2 40 % 07/13/16 11:11 Sodium 136 mmol/L (137-145) L 07/13/16 07:47 Potassium 3.3 mmol/L (3.6-5.0) L 07/13/16 07:47 Chloride 98.8 mmol/L (98-107) 07/13/16 07:47 Carbon Dioxide 21 mmol/L (22-30) L 07/13/16 07:47 Anion Gap 20 mmol/L 07/13/16 07:47 BUN 16 mg/dL (9-20) 07/13/16 07:47 Creatinine 0.9 mg/dL (0.8-1.5) 07/13/16 07:47 Estimated GFR > 60 ml/min 07/13/16 07:47 BUN/Creatinine Ratio 17.77 % 07/13/16 07:47 Glucose 111 mg/dL (75-100) H 07/13/16 07:47 POC Glucose 93 (70-105) 07/13/16 11:52 Lactic Acid 2.4 mmol/L (0.7-2.0) H* 07/09/16 18:28 Calcium 8.2 mg/dL (8.4-10.2) L 07/13/16 07:47 Phosphorus 2.0 mg/dL (2.5-4.5) L D 07/12/16 23:36 Magnesium 2.2 mg/dL (1.7-2.3) 07/12/16 23:36 Total Bilirubin 1.4 mg/dL (0.1-1.2) H 07/13/16 07:47 Direct Bilirubin 0.3 mg/dL (0-0.2) H 07/09/16 14:55 Indirect Bilirubin 0.6 mg/dL 07/09/16 14:55 AST 101 units/L (5-40) H 07/13/16 07:47 ALT 120 units/L (7-56) H 07/13/16 07:47 Alkaline Phosphatase 80 units/L (35-129) 07/13/16 07:47 Ammonia 30.0 umol/L (25-60) 07/09/16 14:55 Troponin T < 0.010 ng/mL (0.00-0.029) 07/09/16 14:55 C-Reactive Protein 11.60 mg/dL (0.00-1.30) H 07/09/16 14:55 Total Protein 7.4 g/dL (6.3-8.2) 07/13/16 07:47 Albumin 3.0 g/dL (3.9-5) L 07/13/16 07:47 Albumin/Globulin Ratio 0.7 % 07/13/16 07:47 Triglycerides 298 mg/dL (2-149) H 07/11/16 11:09 Urine Color Yellow (Yellow) 07/09/16 14:47 Urine Turbidity Clear (Clear) 07/09/16 14:47 Urine pH 7.0 (5.0-7.0) 07/09/16 14:47 Ur Specific [place] 1.012 (1.003-1.030) 07/09/16 14:47 Urine Protein 100 mg/dl mg/dL (Negative) 07/09/16 14:47 Urine Glucose (UA) >=500 mg/dL (Negative) 07/09/16 14:47 Urine Ketones Tr mg/dL (Negative) 07/09/16 14:47 Urine Blood Mod (Negative) 07/09/16 14:47 Urine Nitrite Neg (Negative) 07/09/16 14:47 Urine Bilirubin Neg (Negative) 07/09/16 14:47 Urine Urobilinogen < 2.0 mg/dL (<2.0) 07/09/16 14:47 Ur Leukocyte Esterase Neg (Negative) 07/09/16 14:47 Urine WBC (Auto) 1.0 /HPF (0.0-6.0) 07/09/16 14:47 Urine RBC (Auto) 11.0 /HPF (0.0-6.0) 07/09/16 14:47 Urine Mucus Few /HPF 07/09/16 14:47 Urine Opiates Screen Presumptive negative 07/09/16 14:47 Urine Methadone Screen Presumptive negative 07/09/16 14:47 Ur Barbiturates Screen Presumptive negative 07/09/16 14:47 Ur Phencyclidine Scrn Presumptive negative 07/09/16 14:47 Ur Amphetamines Screen Presumptive negative 07/09/16 14:47 U Benzodiazepines Scrn Presumptive negative 07/09/16 14:47 Urine Cocaine Screen Presumptive negative 07/09/16 14:47 U Marijuana (THC) Screen Presumptive negative 07/09/16 14:47 Drugs of Abuse Note Disclamer 07/09/16 14:47
[2016-07-14 07:38] LABS: Basophils % (Auto) 0.6 % (0.0-1.8); Eosinophils % (Auto) 1.3 % (0.0-4.3); Hematocrit 35.9 % (35.5-45.6); Hemoglobin 12.1 gm/dl (11.8-15.2); Mean Corpuscular HGB Conc 34 % (32-34); Mean Corpuscular Hemoglobin 30 pg (28-32); Mean Corpuscular Volume 90 fl (84-94); Platelet Count 264 K/mm3 (140-440); Red Cell Distribution Width 15.8 % (13.2-15.2); White Blood Count 10.2 K/mm3 (4.5-11.0)
[2016-07-14 07:57] LABS: BUN/Creatinine Ratio 18.75; Blood Urea Nitrogen 15 mg/dL (9-20); Calcium 8.3 mg/dL (8.4-10.2); Carbon Dioxide 21 mmol/L (22-30); Glucose 89 mg/dL (75-100)
[2016-07-14 07:58] LABS: Anion Gap 20 mmol/L; Chloride 102.6 mmol/L (98-107); Potassium 3.4 mmol/L (3.6-5.0); Sodium 140 mmol/L (137-145)
--- NOTE | 2016-07-14 09:20 | XRay Report ---
AP CHEST: HISTORY: Follow-up respiratory failure. FINDINGS: Given differences in the level of inspiration, no change is demonstrated since yesterday's exam. There is [id number] cardiomegaly. The lungs remain clear. No evidence for pneumonia, CHF or pneumothorax. IMPRESSION: No change.
[2016-07-14] MEDS: ROCEPHIN/NS 1 GM/50 ML 1 GM/50 ML BAG IV SCH (10:07)
[2016-07-14] MEDS: LOVENOX SUB-Q SCH (10:09)
[2016-07-14] MEDS: TAMIFLU PO SCH ×2 (10:11→22:33)
[2016-07-14] MEDS: NORVASC PO SCH (10:15)
--- NOTE | 2016-07-14 10:17 | Progress Note ---
Assessment and Plan Acute respiratory failure. ABGs remained adequate. Tachypneic at times but appears to be response to fever Sever sepsis Influenza Streptococcal pneumonia AMS. Secondary to the above. Previously some concern about need for LP, infectious disease also following. Recommendations Continue antibiotics Monitor cultures Physical measures for fever and continue monitoring response Follow-up on ID recommendations Discussed immediate orders with nursing and respiratory staff. 31 minutes spent in [id number] evaluation and coordination of care Subjective Date of service: 07/14/16 Principal diagnosis: Influenza, Strep.pneumonia sepsis Interval history: Complaints of some headaches. Fever previously. No coughing or shortness of breath at this time. Objective Vital Signs - 12hr 07/13/16 07/13/16 07/13/16 22:30 23:00 23:30 Temperature Pulse Rate 120 H 119 H 117 H Pulse Rate [ From Monitor] Respiratory 40 H 29 H 34 H Rate Blood Pressure 126/84 131/82 132/82 O2 Sat by Pulse 97 97 95 Oximetry 07/14/16 07/14/16 07/14/16 00:00 00:30 01:00 Temperature 100.8 F H Pulse Rate 121 H 118 H 117 H Pulse Rate [ 120 H From Monitor] Respiratory 26 H 35 H 42 H Rate Blood Pressure 117/81 115/82 115/76 O2 Sat by Pulse 97 97 96 Oximetry 07/14/16 07/14/16 07/14/16 01:30 02:00 02:30 Temperature Pulse Rate 116 H 114 H 115 H Pulse Rate [ From Monitor] Respiratory 35 H 35 H Rate Blood Pressure 116/83 120/84 127/91 O2 Sat by Pulse 96 96 97 Oximetry 07/14/16 07/14/16 07/14/16 03:00 03:30 04:00 Temperature 100.8 F H Pulse Rate 115 H 111 H 109 H Pulse Rate [ 110 H From Monitor] Respiratory 34 H 22 Rate Blood Pressure 140/88 142/90 131/91 O2 Sat by Pulse 96 97 98 Oximetry 07/14/16 07/14/16 07/14/16 04:30 05:00 05:30 Temperature Pulse Rate 111 H 111 H 112 H Pulse Rate [ From Monitor] Respiratory 22 33 H 29 H Rate Blood Pressure 144/93 145/93 147/93 O2 Sat by Pulse 97 97 97 Oximetry 07/14/16 07/14/16 07/14/16 06:00 06:30 07:00 Temperature Pulse Rate 112 H 113 H 111 H Pulse Rate [ From Monitor] Respiratory 32 H 31 H 35 H Rate Blood Pressure 135/90 139/93 141/92 O2 Sat by Pulse 99 98 98 Oximetry 07/14/16 07/14/16 07/14/16 07:30 07:54 08:00 Temperature 98.6 F Pulse Rate 110 H 113 H Pulse Rate [ From Monitor] Respiratory 19 10 L Rate Blood Pressure 138/88 143/91 O2 Sat by Pulse 99 99 Oximetry 07/14/16 07/14/16 08:30 09:00 Temperature Pulse Rate 110 H 114 H Pulse Rate [ From Monitor] Respiratory 37 H 12 Rate Blood Pressure 159/99 134/87 O2 Sat by Pulse 99 Oximetry Constitutional: alert, asleep, other (moderate respiratory distress) Eyes: non-icteric ENT: oropharynx moist Neck: supple Ascultation: Bilateral: clear, diminished breath sounds Cardiovascular: regular rate and rhythm, other (tachycardic) Integumentary: other (sweating) Neurologic: normal mental status (looks sleepy but able to follow my conversations completely), non-focal exam, pupils equal and round, CN II-XII normal, other (no clear-cut nuchal rigidity ) CBC and BMP: 07/14/16 07:20 07/14/16 07:20 ABG, PT/INR, D-dimer: ABG POC ABG pH 7.408 (7.35-7.45) 07/13/16 11:11 POC ABG pCO2 35.9 (35-45) 07/13/16 11:11 POC ABG pO2 79 (80-105) L 07/13/16 11:11 POC ABG HCO3 22.6 07/13/16 11:11 POC ABG Total CO2 24 07/13/16 11:11 POC ABG O2 Sat 96 07/13/16 11:11 PT/INR, D-dimer PT 14.1 Sec. (12.2-14.9) 07/09/16 14:55 INR 1.10 (0.87-1.13) 07/09/16 14:55 Abnormal lab findings: Abnormal Labs 07/09/16 07/09/16 07/10/16 18:28 22:10 00:23 WBC Hgb Hct RDW Lymph % (Auto) [place] % (Auto) Lymph # [place] # Seg Neutrophils % Seg Neuts % (Manual) Seg Neutrophils # Seg Neutrophils # Man POC ABG pH POC ABG pCO2 POC ABG pO2 Sodium Potassium Chloride Carbon Dioxide Glucose POC Glucose 123 H 118 H Lactic Acid 2.4 H* Calcium Phosphorus Total Bilirubin AST ALT Albumin Triglycerides 07/10/16 07/10/16 07/10/16 03:22 03:22 05:35 WBC 17.4 H Hgb Hct RDW 16.2 H Lymph % (Auto) 6.8 L [place] % (Auto) 7.7 H Lymph # [place] # 1.3 H Seg Neutrophils % 85.3 H Seg Neuts % (Manual) Seg Neutrophils # 14.8 H Seg Neutrophils # Man POC ABG pH POC ABG pCO2 POC ABG pO2 Sodium 129 L Potassium Chloride 92.8 L Carbon Dioxide Glucose 115 H POC Glucose 106 H Lactic Acid Calcium 7.8 L Phosphorus Total Bilirubin AST 42 H ALT 79 H Albumin 3.2 L Triglycerides 07/10/16 07/11/16 07/11/16 05:48 05:59 11:09 WBC 12.0 H Hgb 11.1 L Hct 33.6 L RDW 16.2 H Lymph % (Auto) 8.9 L [place] % (Auto) 8.8 H Lymph # 1.1 L [place] # 1.1 H Seg Neutrophils % 82.1 H Seg Neuts % (Manual) Seg Neutrophils # 9.8 H Seg Neutrophils # Man POC ABG pH 7.273 L POC ABG pCO2 53.4 H 34.9 L POC ABG pO2 113 H 163 H Sodium Potassium Chloride Carbon Dioxide Glucose POC Glucose Lactic Acid Calcium Phosphorus Total Bilirubin AST ALT Albumin Triglycerides 07/11/16 07/11/16 07/12/16 11:09 11:09 20:49 WBC Hgb Hct RDW Lymph % (Auto) [place] % (Auto) Lymph # [place] # Seg Neutrophils % Seg Neuts % (Manual) Seg Neutrophils # Seg Neutrophils # Man POC ABG pH POC ABG pCO2 34.2 L POC ABG pO2 79 L Sodium Potassium Chloride Carbon Dioxide Glucose POC Glucose Lactic Acid Calcium 8.2 L Phosphorus 1.5 L Total Bilirubin AST ALT Albumin Triglycerides 298 H 07/12/16 07/13/16 07/13/16 23:36 07:47 07:47 WBC Hgb Hct RDW 15.7 H Lymph % (Auto) [place] % (Auto) Lymph # [place] # Seg Neutrophils % Seg Neuts % (Manual) 74.0 H Seg Neutrophils # Seg Neutrophils # Man 7.8 H POC ABG pH POC ABG pCO2 POC ABG pO2 Sodium 136 L Potassium 3.3 L Chloride Carbon Dioxide 21 L Glucose 111 H POC Glucose Lactic Acid Calcium 8.2 L Phosphorus 2.0 L D Total Bilirubin 1.4 H AST 101 H ALT 120 H Albumin 3.0 L Triglycerides 07/13/16 07/14/16 07/14/16 11:11 07:20 07:20 WBC Hgb Hct RDW 15.8 H Lymph % (Auto) 12.4 L [place] % (Auto) 11.7 H Lymph # [place] # 1.2 H Seg Neutrophils % 74.0 H Seg Neuts % (Manual) Seg Neutrophils # Seg Neutrophils # Man POC ABG pH POC ABG pCO2 POC ABG pO2 79 L Sodium Potassium Chloride Carbon Dioxide 21 L Glucose POC Glucose Lactic Acid Calcium 8.3 L Phosphorus Total Bilirubin AST ALT Albumin Triglycerides
[2016-07-14] MEDS: NACL 0.9% 1000 ML 1,000 ML IV SCH (16:59)
--- NOTE | 2016-07-14 17:36 | Progress Note ---
Assessment and Plan - Patient Problems (1) Acute respiratory failure Current Visit: Yes Status: Acute Qualifiers: Respiratory failure complication: R Plan to address problem: Patient is on BiPAP, oxygen support, pulmonary on board (2) Altered mental status Current Visit: Yes Status: Acute Qualifiers: Altered mental status type: delirium Coma depth: C Coma timing: C Qualified Code(s): R41.0 - Disorientation, unspecified Plan to address problem: Supportive care Treating Underlying cause (3) Encephalopathy Current Visit: Yes Status: Acute Plan to address problem: Supportive Care (4) Febrile illness, acute Current Visit: Yes Status: Acute Plan to address problem: Likely to pneumonia and flu, and is on antibiotics and Tamiflu (5) Hypertensive emergency Current Visit: Yes Status: Acute Plan to address problem: Continue blood pressure medications as needed History Interval history: Patient is getting better, has some hallucinations Hospitalist Physical - Physical exam Narrative exam: In cardiopulmonary distress. Patient is on BiPAP Vital signs as documented. Head exam is unremarkable. No scleral icterus . Neck is without jugular venous distension, thyromegaly, or carotid bruits. Lungs are clear to auscultation. Patient is tight tachpnoeic Cardiac exam reveals regular rate and Rhythm. First and second heart sounds normal. No murmurs, rubs or gallops. Abdominal exam reveals normal bowel sounds, no masses, no organomegaly and no aortic enlargement. Extremities are nonedematous and both femoral and pedal pulses are normal. [employer]: Somnolent - Constitutional Vitals: Temp Pulse Resp BP Pulse Ox 98.8 F 110 H 37 H 151/100 99 07/14/16 16:00 07/14/16 16:00 07/14/16 16:00 07/14/16 16:00 07/14/16 16:00 General appearance: Present: mild distress Results - Labs CBC & Chem 7: 07/14/16 07:20 07/14/16 07:20 Labs: Laboratory Last Values WBC 10.2 K/mm3 (4.5-11.0) 07/14/16 07:20 RBC 4.00 M/mm3 (3.65-5.03) 07/14/16 07:20 Hgb 12.1 gm/dl (11.8-15.2) 07/14/16 07:20 Hct 35.9 % (35.5-45.6) 07/14/16 07:20 MCV 90 fl (84-94) 07/14/16 07:20 MCH 30 pg (28-32) 07/14/16 07:20 MCHC 34 % (32-34) 07/14/16 07:20 RDW 15.8 % (13.2-15.2) H 07/14/16 07:20 Plt Count 264 K/mm3 (140-440) 07/14/16 07:20 Lymph % (Auto) 12.4 % (13.4-35.0) L 07/14/16 07:20 [place] % (Auto) 11.7 % (0.0-7.3) H 07/14/16 07:20 Eos % (Auto) 1.3 % (0.0-4.3) 07/14/16 07:20 Baso % (Auto) 0.6 % (0.0-1.8) 07/14/16 07:20 Lymph # 1.3 K/mm3 (1.2-5.4) 07/14/16 07:20 [place] # 1.2 K/mm3 (0.0-0.8) H 07/14/16 07:20 Eos # 0.1 K/mm3 (0.0-0.4) 07/14/16 07:20 Baso # 0.1 K/mm3 (0.0-0.1) 07/14/16 07:20 Add Manual Diff Complete 07/13/16 07:47 Total Counted 100 07/13/16 07:47 Seg Neutrophils % 74.0 % (40.0-70.0) H 07/14/16 07:20 Seg Neuts % (Manual) 74.0 % (40.0-70.0) H 07/13/16 07:47 Band Neutrophils % 3.0 % 07/13/16 07:47 Lymphocytes % (Manual) 15.0 % (13.4-35.0) 07/13/16 07:47 Reactive Lymphs % (Man) 0 % 07/13/16 07:47 Monocytes % (Manual) 7.0 % (0.0-7.3) 07/13/16 07:47 Eosinophils % (Manual) 1.0 % (0.0-4.3) 07/13/16 07:47 Basophils % (Manual) 0 % (0.0-1.8) 07/13/16 07:47 Metamyelocytes % 0 % 07/13/16 07:47 Myelocytes % 0 % 07/13/16 07:47 Promyelocytes % 0 % 07/13/16 07:47 Blast Cells % 0 % 07/13/16 07:47 Nucleated RBC % Not Reportable 07/13/16 07:47 Seg Neutrophils # 7.5 K/mm3 (1.8-7.7) 07/14/16 07:20 Seg Neutrophils # Man 7.8 K/mm3 (1.8-7.7) H 07/13/16 07:47 Band Neutrophils # 0.3 K/mm3 07/13/16 07:47 Lymphocytes # (Manual) 1.6 K/mm3 (1.2-5.4) 07/13/16 07:47 Abs React Lymphs (Man) 0.0 K/mm3 07/13/16 07:47 Monocytes # (Manual) 0.7 K/mm3 (0.0-0.8) 07/13/16 07:47 Eosinophils # (Manual) 0.1 K/mm3 (0.0-0.4) 07/13/16 07:47 Basophils # (Manual) 0.0 K/mm3 (0.0-0.1) 07/13/16 07:47 Metamyelocytes # 0.0 K/mm3 07/13/16 07:47 Myelocytes # 0.0 K/mm3 07/13/16 07:47 Promyelocytes # 0.0 K/mm3 07/13/16 07:47 Blast Cells # 0.0 K/mm3 07/13/16 07:47 WBC Morphology Not Reportable 07/13/16 07:47 Hypersegmented Neuts Not Reportable 07/13/16 07:47 Hyposegmented Neuts Not Reportable 07/13/16 07:47 Hypogranular Neuts Not Reportable 07/13/16 07:47 Smudge Cells Not Reportable 07/13/16 07:47 Toxic Granulation Not Reportable 07/13/16 07:47 Toxic Vacuolation Not Reportable 07/13/16 07:47 Dohle Bodies Not Reportable 07/13/16 07:47 Pel[place]uet Anomaly Not Reportable 07/13/16 07:47 Lane Rods Not Reportable 07/13/16 07:47 Platelet Estimate Appears normal 07/13/16 07:47 Clumped Platelets Not Reportable 07/13/16 07:47 Plt Clumps, EDTA Not Reportable 07/13/16 07:47 Large Platelets Not Reportable 07/13/16 07:47 Giant Platelets Not Reportable 07/13/16 07:47 Platelet Satelliting Not Reportable 07/13/16 07:47 Plt Morphology Comment Not Reportable 07/13/16 07:47 RBC Morphology Normal 07/13/16 07:47 Dimorphic RBCs Not Reportable 07/13/16 07:47 Polychromasia Not Reportable 07/13/16 07:47 Hypochromasia Not Reportable 07/13/16 07:47 Poikilocytosis Not Reportable 07/13/16 07:47 Anisocytosis Not Reportable 07/13/16 07:47 Microcytosis Not Reportable 07/13/16 07:47 Macrocytosis Not Reportable 07/13/16 07:47 Spherocytes Not Reportable 07/13/16 07:47 Pappenheimer Bodies Not Reportable 07/13/16 07:47 Sickle Cells Not Reportable 07/13/16 07:47 Target Cells Not Reportable 07/13/16 07:47 Tear Drop Cells Not Reportable 07/13/16 07:47 Ovalocytes Not Reportable 07/13/16 07:47 Helmet Cells Not Reportable 07/13/16 07:47 [place] Bodies Not Reportable 07/13/16 07:47 [place] Rings Not Reportable 07/13/16 07:47 [place] Cells Not Reportable 07/13/16 07:47 Bite Cells Not Reportable 07/13/16 07:47 Crenated Cell Not Reportable 07/13/16 07:47 Elliptocytes Not Reportable 07/13/16 07:47 Acanthocytes (Spur) Not Reportable 07/13/16 07:47 Rouleaux Not Reportable 07/13/16 07:47 Hemoglobin C Crystals Not Reportable 07/13/16 07:47 Schistocytes Not Reportable 07/13/16 07:47 Malaria parasites Not Reportable 07/13/16 07:47 [place] Bodies Not Reportable 07/13/16 07:47 Hem Pathologist Commnt No 07/13/16 07:47 PT 14.1 Sec. (12.2-14.9) 07/09/16 14:55 INR 1.10 (0.87-1.13) 07/09/16 14:55 POC ABG pH 7.408 (7.35-7.45) 07/13/16 11:11 POC ABG pCO2 35.9 (35-45) 07/13/16 11:11 POC ABG pO2 79 (80-105) L 07/13/16 11:11 POC ABG HCO3 22.6 07/13/16 11:11 POC ABG Total CO2 24 07/13/16 11:11 POC ABG O2 Sat 96 07/13/16 11:11 POC ABG Base Excess -2 07/13/16 11:11 FiO2 40 % 07/13/16 11:11 Sodium 140 mmol/L (137-145) 07/14/16 07:20 Potassium 3.3 mmol/L (3.6-5.0) L 07/13/16 07:47 Chloride 98.8 mmol/L (98-107) 07/13/16 07:47 Carbon Dioxide 21 mmol/L (22-30) L 07/14/16 07:20 Anion Gap 20 mmol/L 07/13/16 07:47 BUN 15 mg/dL (9-20) 07/14/16 07:20 Creatinine 0.8 mg/dL (0.8-1.5) 07/14/16 07:20 Estimated GFR > 60 ml/min 07/14/16 07:20 BUN/Creatinine Ratio 18.75 % 07/14/16 07:20 Glucose 89 mg/dL (75-100) 07/14/16 07:20 POC Glucose 93 (70-105) 07/13/16 11:52 Lactic Acid 2.4 mmol/L (0.7-2.0) H* 07/09/16 18:28 Calcium 8.3 mg/dL (8.4-10.2) L 07/14/16 07:20 Phosphorus 2.0 mg/dL (2.5-4.5) L D 07/12/16 23:36 Magnesium 2.2 mg/dL (1.7-2.3) 07/12/16 23:36 Total Bilirubin 1.4 mg/dL (0.1-1.2) H 07/13/16 07:47 Direct Bilirubin 0.3 mg/dL (0-0.2) H 07/09/16 14:55 Indirect Bilirubin 0.6 mg/dL 07/09/16 14:55 AST 101 units/L (5-40) H 07/13/16 07:47 ALT 120 units/L (7-56) H 07/13/16 07:47 Alkaline Phosphatase 80 units/L (35-129) 07/13/16 07:47 Ammonia 30.0 umol/L (25-60) 07/09/16 14:55 Troponin T < 0.010 ng/mL (0.00-0.029) 07/09/16 14:55 C-Reactive Protein 11.60 mg/dL (0.00-1.30) H 07/09/16 14:55 Total Protein 7.4 g/dL (6.3-8.2) 07/13/16 07:47 Albumin 3.0 g/dL (3.9-5) L 07/13/16 07:47 Albumin/Globulin Ratio 0.7 % 07/13/16 07:47 Triglycerides 298 mg/dL (2-149) H 07/11/16 11:09 Urine Color Yellow (Yellow) 07/09/16 14:47 Urine Turbidity Clear (Clear) 07/09/16 14:47 Urine pH 7.0 (5.0-7.0) 07/09/16 14:47 Ur Specific [place] 1.012 (1.003-1.030) 07/09/16 14:47 Urine Protein 100 mg/dl mg/dL (Negative) 07/09/16 14:47 Urine Glucose (UA) >=500 mg/dL (Negative) 07/09/16 14:47 Urine Ketones Tr mg/dL (Negative) 07/09/16 14:47 Urine Blood Mod (Negative) 07/09/16 14:47 Urine Nitrite Neg (Negative) 07/09/16 14:47 Urine Bilirubin Neg (Negative) 07/09/16 14:47 Urine Urobilinogen < 2.0 mg/dL (<2.0) 07/09/16 14:47 Ur Leukocyte Esterase Neg (Negative) 07/09/16 14:47 Urine WBC (Auto) 1.0 /HPF (0.0-6.0) 07/09/16 14:47 Urine RBC (Auto) 11.0 /HPF (0.0-6.0) 07/09/16 14:47 Urine Mucus Few /HPF 07/09/16 14:47 Urine Opiates Screen Presumptive negative 07/09/16 14:47 Urine Methadone Screen Presumptive negative 07/09/16 14:47 Ur Barbiturates Screen Presumptive negative 07/09/16 14:47 Ur Phencyclidine Scrn Presumptive negative 07/09/16 14:47 Ur Amphetamines Screen Presumptive negative 07/09/16 14:47 U Benzodiazepines Scrn Presumptive negative 07/09/16 14:47 Urine Cocaine Screen Presumptive negative 07/09/16 14:47 U Marijuana (THC) Screen Presumptive negative 07/09/16 14:47 Drugs of Abuse Note Disclamer 07/09/16 14:47
[2016-07-14] MEDS: APRESOLINE IV PRN (22:33)
[2016-07-15 05:19] LABS: Basophils % (Auto) 0.5 % (0.0-1.8); Eosinophils % (Auto) 0.9 % (0.0-4.3); Hematocrit 36.4 % (35.5-45.6); Hemoglobin 12.2 gm/dl (11.8-15.2); Mean Corpuscular HGB Conc 33 % (32-34); Mean Corpuscular Hemoglobin 30 pg (28-32); Mean Corpuscular Volume 89 fl (84-94); Platelet Count 331 K/mm3 (140-440); Red Cell Distribution Width 15.6 % (13.2-15.2); White Blood Count 9.8 K/mm3 (4.5-11.0)
[2016-07-15 05:43] LABS: Anion Gap 23 mmol/L; Blood Urea Nitrogen 15 mg/dL (9-20); Calcium 8.7 mg/dL (8.4-10.2); Carbon Dioxide 19 mmol/L (22-30); Chloride 101.4 mmol/L (98-107); Glucose 106 mg/dL (75-100); Potassium 3.6 mmol/L (3.6-5.0); Sodium 140 mmol/L (137-145)
--- NOTE | 2016-07-15 07:16 | XRay Report ---
AP CHEST: HISTORY: Followup respiratory failure. No change is demonstrated since yesterday's exam at 0217 hours. Mild cardiomegaly and central pulmonary venous congestion are stable. The lungs are clear. No pleural fluid or pneumothorax is appreciated. The feeding tube is unchanged in position and coiled in the fundus of the stomach. IMPRESSION: No change.
[2016-07-15] MEDS: NACL 0.9% 1000 ML 1,000 ML IV SCH ×2 (07:46→21:38)
[2016-07-15] MEDS: ROCEPHIN/NS 1 GM/50 ML 1 GM/50 ML BAG IV SCH (09:26)
[2016-07-15] MEDS: LOVENOX SUB-Q SCH (09:27)
[2016-07-15] MEDS: TAMIFLU PO SCH ×2 (09:29→21:38)
[2016-07-15] MEDS: NORVASC PO SCH (09:29)
--- NOTE | 2016-07-15 11:24 | Progress Note ---
Assessment and Plan Acute respiratory failure. Respiratory stable. Severe sepsis, strep pneumonia Influenza Streptococcal pneumonia. Clear x-ray at this point AMS. Improving Recommendations Continue antibiotics. I have requested his Rocephin to be increased to 2 g per day yesterday but for some reason this order was not followed. I discussed this with the nurse directly in order to correct this immediately I was told initial infectious art sales consultant request was not follow-up To be transferred to another group Monitor cultures Physical measures for fever and continue monitoring response Follow-up on ID recommendations Discussed immediate orders with nursing and respiratory staff. 31 minutes spent in [id number] evaluation and coordination of care Subjective Date of service: 07/15/16 Principal diagnosis: Influenza, Strep.pneumonia sepsis Interval history: Patient reports breathing better. No respiratory symptoms at this time. Headache appears to be improving. No fever this morning Objective Vital Signs - 12hr 07/15/16 07/15/16 07/15/16 00:00 01:00 02:00 Temperature 99.2 F Pulse Rate 110 H 111 H 109 H Pulse Rate [ 110 H From Monitor] Respiratory 24 36 H 16 Rate Blood Pressure 141/93 155/98 155/92 O2 Sat by Pulse 97 Oximetry 07/15/16 07/15/16 07/15/16 03:00 04:00 05:00 Temperature 98.8 F Pulse Rate 108 H 107 H 104 H Pulse Rate [ 103 H From Monitor] Respiratory 35 H 18 14 Rate Blood Pressure 150/96 141/102 143/95 O2 Sat by Pulse 100 97 96 Oximetry 07/15/16 07/15/16 07/15/16 06:00 07:00 07:30 Temperature Pulse Rate 106 H 107 H Pulse Rate [ From Monitor] Respiratory 24 22 Rate Blood Pressure 132/99 160/103 O2 Sat by Pulse 100 100 97 Oximetry 07/15/16 07/15/16 07/15/16 08:00 09:00 09:29 Temperature 98.6 F Pulse Rate 99 H 96 H 102 H Pulse Rate [ From Monitor] Respiratory 29 H 18 Rate Blood Pressure 154/96 151/94 150/98 O2 Sat by Pulse 97 95 Oximetry 07/15/16 10:00 Temperature Pulse Rate 105 H Pulse Rate [ From Monitor] Respiratory 17 Rate Blood Pressure 158/101 O2 Sat by Pulse 100 Oximetry Constitutional: alert, asleep Eyes: non-icteric ENT: oropharynx moist Neck: supple Ascultation: Bilateral: clear, diminished breath sounds Cardiovascular: regular rate and rhythm Neurologic: normal mental status (looks sleepy toxin. Talks in full sentences and comprehension appeared to be normal), non-focal exam, pupils equal and round , CN II-XII normal, other (no clear-cut nuchal rigidity ) CBC and BMP: 07/15/16 04:50 07/15/16 04:50 ABG, PT/INR, D-dimer: ABG POC ABG pH 7.408 (7.35-7.45) 07/13/16 11:11 POC ABG pCO2 35.9 (35-45) 07/13/16 11:11 POC ABG pO2 79 (80-105) L 07/13/16 11:11 POC ABG HCO3 22.6 07/13/16 11:11 POC ABG Total CO2 24 07/13/16 11:11 POC ABG O2 Sat 96 07/13/16 11:11 PT/INR, D-dimer PT 14.1 Sec. (12.2-14.9) 07/09/16 14:55 INR 1.10 (0.87-1.13) 07/09/16 14:55 Abnormal lab findings: Abnormal Labs 07/09/16 07/09/16 07/10/16 18:28 22:10 00:23 WBC Hgb Hct RDW Lymph % (Auto) [place] % (Auto) Lymph # [place] # Seg Neutrophils % Seg Neuts % (Manual) Seg Neutrophils # Seg Neutrophils # Man POC ABG pH POC ABG pCO2 POC ABG pO2 Sodium Potassium Chloride Carbon Dioxide Creatinine Glucose POC Glucose 123 H 118 H Lactic Acid 2.4 H* Calcium Phosphorus Total Bilirubin AST ALT Albumin Triglycerides 07/10/16 07/10/16 07/10/16 03:22 03:22 05:35 WBC 17.4 H Hgb Hct RDW 16.2 H Lymph % (Auto) 6.8 L [place] % (Auto) 7.7 H Lymph # [place] # 1.3 H Seg Neutrophils % 85.3 H Seg Neuts % (Manual) Seg Neutrophils # 14.8 H Seg Neutrophils # Man POC ABG pH POC ABG pCO2 POC ABG pO2 Sodium 129 L Potassium Chloride 92.8 L Carbon Dioxide Creatinine Glucose 115 H POC Glucose 106 H Lactic Acid Calcium 7.8 L Phosphorus Total Bilirubin AST 42 H ALT 79 H Albumin 3.2 L Triglycerides 07/10/16 07/11/16 07/11/16 05:48 05:59 11:09 WBC 12.0 H Hgb 11.1 L Hct 33.6 L RDW 16.2 H Lymph % (Auto) 8.9 L [place] % (Auto) 8.8 H Lymph # 1.1 L [place] # 1.1 H Seg Neutrophils % 82.1 H Seg Neuts % (Manual) Seg Neutrophils # 9.8 H Seg Neutrophils # Man POC ABG pH 7.273 L POC ABG pCO2 53.4 H 34.9 L POC ABG pO2 113 H 163 H Sodium Potassium Chloride Carbon Dioxide Creatinine Glucose POC Glucose Lactic Acid Calcium Phosphorus Total Bilirubin AST ALT Albumin Triglycerides 07/11/16 07/11/16 07/12/16 11:09 11:09 20:49 WBC Hgb Hct RDW Lymph % (Auto) [place] % (Auto) Lymph # [place] # Seg Neutrophils % Seg Neuts % (Manual) Seg Neutrophils # Seg Neutrophils # Man POC ABG pH POC ABG pCO2 34.2 L POC ABG pO2 79 L Sodium Potassium Chloride Carbon Dioxide Creatinine Glucose POC Glucose Lactic Acid Calcium 8.2 L Phosphorus 1.5 L Total Bilirubin AST ALT Albumin Triglycerides 298 H 07/12/16 07/13/16 07/13/16 23:36 07:47 07:47 WBC Hgb Hct RDW 15.7 H Lymph % (Auto) [place] % (Auto) Lymph # [place] # Seg Neutrophils % Seg Neuts % (Manual) 74.0 H Seg Neutrophils # Seg Neutrophils # Man 7.8 H POC ABG pH POC ABG pCO2 POC ABG pO2 Sodium 136 L Potassium 3.3 L Chloride Carbon Dioxide 21 L Creatinine Glucose 111 H POC Glucose Lactic Acid Calcium 8.2 L Phosphorus 2.0 L D Total Bilirubin 1.4 H AST 101 H ALT 120 H Albumin 3.0 L Triglycerides 07/13/16 07/14/16 07/14/16 11:11 07:20 07:20 WBC Hgb Hct RDW 15.8 H Lymph % (Auto) 12.4 L [place] % (Auto) 11.7 H Lymph # [place] # 1.2 H Seg Neutrophils % 74.0 H Seg Neuts % (Manual) Seg Neutrophils # Seg Neutrophils # Man POC ABG pH POC ABG pCO2 POC ABG pO2 79 L Sodium Potassium Chloride Carbon Dioxide 21 L Creatinine Glucose POC Glucose Lactic Acid Calcium 8.3 L Phosphorus Total Bilirubin AST ALT Albumin Triglycerides 07/15/16 07/15/16 04:50 04:50 WBC Hgb Hct RDW 15.6 H Lymph % (Auto) 10.4 L [place] % (Auto) 10.3 H Lymph # 1.0 L [place] # 1.0 H Seg Neutrophils % 77.9 H Seg Neuts % (Manual) Seg Neutrophils # Seg Neutrophils # Man POC ABG pH POC ABG pCO2 POC ABG pO2 Sodium Potassium Chloride Carbon Dioxide 19 L Creatinine 0.6 L Glucose 106 H POC Glucose Lactic Acid Calcium Phosphorus Total Bilirubin AST ALT Albumin Triglycerides
--- NOTE | 2016-07-15 14:19 | Progress Note ---
Assessment and Plan - Patient Problems (1) Acute respiratory failure Current Visit: Yes Status: Acute Qualifiers: Respiratory failure complication: R Plan to address problem: Patient is on non rebreather, oxygen support, pulmonary on board patient is getting better (2) Altered mental status Current Visit: Yes Status: Acute Qualifiers: Altered mental status type: delirium Coma depth: C Coma timing: C Qualified Code(s): R41.0 - Disorientation, unspecified Plan to address problem: Supportive care Treating Underlying cause (3) Encephalopathy Current Visit: Yes Status: Acute Plan to address problem: Supportive Care (4) Febrile illness, acute Current Visit: Yes Status: Acute Plan to address problem: Likely to pneumonia and flu, and is on antibiotics and Tamiflu (5) Hypertensive emergency Current Visit: Yes Status: Acute Plan to address problem: Continue blood pressure medications as needed History Interval history: Patient is getting better, he hold his catheter and he said he hold his car wheel. Hospitalist Physical - Physical exam Narrative exam: In cardiopulmonary distress. Patient is on non rebreather. Vital signs as documented. Head exam is unremarkable. No scleral icterus . Neck is without jugular venous distension, thyromegaly, or carotid bruits. Lungs are clear to auscultation. Patient is tight tachpnoeic Cardiac exam reveals regular rate and Rhythm. First and second heart sounds normal. No murmurs, rubs or gallops. Abdominal exam reveals normal bowel sounds, no masses, no organomegaly and no aortic enlargement. Extremities are nonedematous and both femoral and pedal pulses are normal. 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 - Constitutional Vitals: Temp Pulse Resp BP Pulse Ox 97.6 F 101 H 13 152/100 99 07/15/16 12:00 07/15/16 13:00 07/15/16 13:00 07/15/16 13:00 07/15/16 13:00 General appearance: Present: mild distress Results - Labs CBC & Chem 7: 07/15/16 04:50 07/15/16 04:50 Labs: Laboratory Last Values WBC 9.8 K/mm3 (4.5-11.0) 07/15/16 04:50 RBC 4.10 M/mm3 (3.65-5.03) 07/15/16 04:50 Hgb 12.2 gm/dl (11.8-15.2) 07/15/16 04:50 Hct 36.4 % (35.5-45.6) 07/15/16 04:50 MCV 89 fl (84-94) 07/15/16 04:50 MCH 30 pg (28-32) 07/15/16 04:50 MCHC 33 % (32-34) 07/15/16 04:50 RDW 15.6 % (13.2-15.2) H 07/15/16 04:50 Plt Count 331 K/mm3 (140-440) 07/15/16 04:50 Lymph % (Auto) 10.4 % (13.4-35.0) L 07/15/16 04:50 [place] % (Auto) 10.3 % (0.0-7.3) H 07/15/16 04:50 Eos % (Auto) 0.9 % (0.0-4.3) 07/15/16 04:50 Baso % (Auto) 0.5 % (0.0-1.8) 07/15/16 04:50 Lymph # 1.0 K/mm3 (1.2-5.4) L 07/15/16 04:50 [place] # 1.0 K/mm3 (0.0-0.8) H 07/15/16 04:50 Eos # 0.1 K/mm3 (0.0-0.4) 07/15/16 04:50 Baso # 0.0 K/mm3 (0.0-0.1) 07/15/16 04:50 Add Manual Diff Complete 07/13/16 07:47 Total Counted 100 07/13/16 07:47 Seg Neutrophils % 77.9 % (40.0-70.0) H 07/15/16 04:50 Seg Neuts % (Manual) 74.0 % (40.0-70.0) H 07/13/16 07:47 Band Neutrophils % 3.0 % 07/13/16 07:47 Lymphocytes % (Manual) 15.0 % (13.4-35.0) 07/13/16 07:47 Reactive Lymphs % (Man) 0 % 07/13/16 07:47 Monocytes % (Manual) 7.0 % (0.0-7.3) 07/13/16 07:47 Eosinophils % (Manual) 1.0 % (0.0-4.3) 07/13/16 07:47 Basophils % (Manual) 0 % (0.0-1.8) 07/13/16 07:47 Metamyelocytes % 0 % 07/13/16 07:47 Myelocytes % 0 % 07/13/16 07:47 Promyelocytes % 0 % 07/13/16 07:47 Blast Cells % 0 % 07/13/16 07:47 Nucleated RBC % Not Reportable 07/13/16 07:47 Seg Neutrophils # 7.6 K/mm3 (1.8-7.7) 07/15/16 04:50 Seg Neutrophils # Man 7.8 K/mm3 (1.8-7.7) H 07/13/16 07:47 Band Neutrophils # 0.3 K/mm3 07/13/16 07:47 Lymphocytes # (Manual) 1.6 K/mm3 (1.2-5.4) 07/13/16 07:47 Abs React Lymphs (Man) 0.0 K/mm3 07/13/16 07:47 Monocytes # (Manual) 0.7 K/mm3 (0.0-0.8) 07/13/16 07:47 Eosinophils # (Manual) 0.1 K/mm3 (0.0-0.4) 07/13/16 07:47 Basophils # (Manual) 0.0 K/mm3 (0.0-0.1) 07/13/16 07:47 Metamyelocytes # 0.0 K/mm3 07/13/16 07:47 Myelocytes # 0.0 K/mm3 07/13/16 07:47 Promyelocytes # 0.0 K/mm3 07/13/16 07:47 Blast Cells # 0.0 K/mm3 07/13/16 07:47 WBC Morphology Not Reportable 07/13/16 07:47 Hypersegmented Neuts Not Reportable 07/13/16 07:47 Hyposegmented Neuts Not Reportable 07/13/16 07:47 Hypogranular Neuts Not Reportable 07/13/16 07:47 Smudge Cells Not Reportable 07/13/16 07:47 Toxic Granulation Not Reportable 07/13/16 07:47 Toxic Vacuolation Not Reportable 07/13/16 07:47 Dohle Bodies Not Reportable 07/13/16 07:47 Pelger-Huet Anomaly Not Reportable 07/13/16 07:47 Lane Rods Not Reportable 07/13/16 07:47 Platelet Estimate Appears normal 07/13/16 07:47 Clumped Platelets Not Reportable 07/13/16 07:47 Plt Clumps, EDTA Not Reportable 07/13/16 07:47 Large Platelets Not Reportable 07/13/16 07:47 Giant Platelets Not Reportable 07/13/16 07:47 Platelet Satelliting Not Reportable 07/13/16 07:47 Plt Morphology Comment Not Reportable 07/13/16 07:47 RBC Morphology Normal 07/13/16 07:47 Dimorphic RBCs Not Reportable 07/13/16 07:47 Polychromasia Not Reportable 07/13/16 07:47 Hypochromasia Not Reportable 07/13/16 07:47 Poikilocytosis Not Reportable 07/13/16 07:47 Anisocytosis Not Reportable 07/13/16 07:47 Microcytosis Not Reportable 07/13/16 07:47 Macrocytosis Not Reportable 07/13/16 07:47 Spherocytes Not Reportable 07/13/16 07:47 Pappenheimer Bodies Not Reportable 07/13/16 07:47 Sickle Cells Not Reportable 07/13/16 07:47 Target Cells Not Reportable 07/13/16 07:47 Tear Drop Cells Not Reportable 07/13/16 07:47 Ovalocytes Not Reportable 07/13/16 07:47 Helmet Cells Not Reportable 07/13/16 07:47 [place] Bodies Not Reportable 07/13/16 07:47 [place] Rings Not Reportable 07/13/16 07:47 [place] Cells Not Reportable 07/13/16 07:47 Bite Cells Not Reportable 07/13/16 07:47 Crenated Cell Not Reportable 07/13/16 07:47 Elliptocytes Not Reportable 07/13/16 07:47 Acanthocytes (Spur) Not Reportable 07/13/16 07:47 Rouleaux Not Reportable 07/13/16 07:47 Hemoglobin C Crystals Not Reportable 07/13/16 07:47 Schistocytes Not Reportable 07/13/16 07:47 Malaria parasites Not Reportable 07/13/16 07:47 Tobias Bodies Not Reportable 07/13/16 07:47 Hem Pathologist Commnt No 07/13/16 07:47 PT 14.1 Sec. (12.2-14.9) 07/09/16 14:55 INR 1.10 (0.87-1.13) 07/09/16 14:55 POC ABG pH 7.408 (7.35-7.45) 07/13/16 11:11 POC ABG pCO2 35.9 (35-45) 07/13/16 11:11 POC ABG pO2 79 (80-105) L 07/13/16 11:11 POC ABG HCO3 22.6 07/13/16 11:11 POC ABG Total CO2 24 07/13/16 11:11 POC ABG O2 Sat 96 07/13/16 11:11 POC ABG Base Excess -2 07/13/16 11:11 FiO2 40 % 07/13/16 11:11 Sodium 140 mmol/L (137-145) 07/15/16 04:50 Potassium 3.6 mmol/L (3.6-5.0) 07/15/16 04:50 Chloride 101.4 mmol/L (98-107) 07/15/16 04:50 Carbon Dioxide 19 mmol/L (22-30) L 07/15/16 04:50 Anion Gap 23 mmol/L 07/15/16 04:50 BUN 15 mg/dL (9-20) 07/15/16 04:50 Creatinine 0.6 mg/dL (0.8-1.5) L 07/15/16 04:50 Estimated GFR > 60 ml/min 07/15/16 04:50 BUN/Creatinine Ratio 25.00 % 07/15/16 04:50 Glucose 106 mg/dL (75-100) H 07/15/16 04:50 POC Glucose 93 (70-105) 07/13/16 11:52 Lactic Acid 2.4 mmol/L (0.7-2.0) H* 07/09/16 18:28 Calcium 8.7 mg/dL (8.4-10.2) 07/15/16 04:50 Phosphorus 2.0 mg/dL (2.5-4.5) L D 07/12/16 23:36 Magnesium 2.2 mg/dL (1.7-2.3) 07/12/16 23:36 Total Bilirubin 1.4 mg/dL (0.1-1.2) H 07/13/16 07:47 Direct Bilirubin 0.3 mg/dL (0-0.2) H 07/09/16 14:55 Indirect Bilirubin 0.6 mg/dL 07/09/16 14:55 AST 101 units/L (5-40) H 07/13/16 07:47 ALT 120 units/L (7-56) H 07/13/16 07:47 Alkaline Phosphatase 80 units/L (35-129) 07/13/16 07:47 Ammonia 30.0 umol/L (25-60) 07/09/16 14:55 Troponin T < 0.010 ng/mL (0.00-0.029) 07/09/16 14:55 C-Reactive Protein 11.60 mg/dL (0.00-1.30) H 07/09/16 14:55 Total Protein 7.4 g/dL (6.3-8.2) 07/13/16 07:47 Albumin 3.0 g/dL (3.9-5) L 07/13/16 07:47 Albumin/Globulin Ratio 0.7 % 07/13/16 07:47 Triglycerides 298 mg/dL (2-149) H 07/11/16 11:09 Urine Color Yellow (Yellow) 07/09/16 14:47 Urine Turbidity Clear (Clear) 07/09/16 14:47 Urine pH 7.0 (5.0-7.0) 07/09/16 14:47 Ur Specific [place] 1.012 (1.003-1.030) 07/09/16 14:47 Urine Protein 100 mg/dl mg/dL (Negative) 07/09/16 14:47 Urine Glucose (UA) >=500 mg/dL (Negative) 07/09/16 14:47 Urine Ketones Tr mg/dL (Negative) 07/09/16 14:47 Urine Blood Mod (Negative) 07/09/16 14:47 Urine Nitrite Neg (Negative) 07/09/16 14:47 Urine Bilirubin Neg (Negative) 07/09/16 14:47 Urine Urobilinogen < 2.0 mg/dL (<2.0) 07/09/16 14:47 Ur Leukocyte Esterase Neg (Negative) 07/09/16 14:47 Urine WBC (Auto) 1.0 /HPF (0.0-6.0) 07/09/16 14:47 Urine RBC (Auto) 11.0 /HPF (0.0-6.0) 07/09/16 14:47 Urine Mucus Few /HPF 07/09/16 14:47 Urine Opiates Screen Presumptive negative 07/09/16 14:47 Urine Methadone Screen Presumptive negative 07/09/16 14:47 Ur Barbiturates Screen Presumptive negative 07/09/16 14:47 Ur Phencyclidine Scrn Presumptive negative 07/09/16 14:47 Ur Amphetamines Screen Presumptive negative 07/09/16 14:47 U Benzodiazepines Scrn Presumptive negative 07/09/16 14:47 Urine Cocaine Screen Presumptive negative 07/09/16 14:47 U Marijuana (THC) Screen Presumptive negative 07/09/16 14:47 Drugs of Abuse Note Disclamer 07/09/16 14:47
[2016-07-15] MEDS ORDERED: SIMPLE SYRUP FEEDTUBE PRN ×2 (15:14)
[2016-07-15] MEDS ORDERED: SODIUM BICARBONATE FEEDTUBE PRN (15:14)
[2016-07-15] MEDS ORDERED: PANCREAZE DR 10,500 UNIT FEEDTUBE PRN (15:14)
[2016-07-15] MEDS: APRESOLINE IV PRN (21:39)
[2016-07-16] MEDS: APRESOLINE IV PRN ×2 (01:22→16:30)
[2016-07-16 04:44] LABS: Anion Gap 19 mmol/L; BUN/Creatinine Ratio 28.33; Blood Urea Nitrogen 17 mg/dL (9-20); Calcium 8.9 mg/dL (8.4-10.2); Carbon Dioxide 22 mmol/L (22-30); Chloride 99.3 mmol/L (98-107); Glucose 132 mg/dL (75-100); Potassium 3.5 mmol/L (3.6-5.0); Sodium 137 mmol/L (137-145)
[2016-07-16 10:27] LABS: Basophils % (Auto) 0.4 % (0.0-1.8); Eosinophils % (Auto) 1.1 % (0.0-4.3); Hematocrit 36.2 % (35.5-45.6); Hemoglobin 12.1 gm/dl (11.8-15.2); Mean Corpuscular HGB Conc 33 % (32-34); Mean Corpuscular Hemoglobin 30 pg (28-32); Mean Corpuscular Volume 90 fl (84-94); Platelet Count 422 K/mm3 (140-440); Red Blood Count 4.05 M/mm3 (3.65-5.03); White Blood Count 8.9 K/mm3 (4.5-11.0)
[2016-07-16] MEDS: NORVASC PO SCH (10:30)
[2016-07-16] MEDS: ROCEPHIN/NS 2 GM/100 ML 2 GM/100 ML BAG IV SCH (10:30)
[2016-07-16] MEDS: LOVENOX SUB-Q SCH (10:30)
--- NOTE | 2016-07-16 11:09 | XRay Report ---
SINGLE VIEW CHEST: Compared to 07/15/16. HISTORY: Followup respiratory failure. FINDINGS: Borderline cardiomegaly. Trachea is midline. No consolidation, pneumothorax or pleural effusion. IMPRESSION: No acute cardiopulmonary findings.
--- NOTE | 2016-07-16 11:53 | Progress Note ---
Assessment and Plan Acute respiratory failure. Respiratory stable. Severe sepsis, strep pneumonia. No pneumonia per x-rays Influenza and family report what appears to be influenza-like illness in fellow workers on the past couple weeks Streptococcal pneumonia. Clear x-ray at this point AMS. Improving Recommendations Continue antibiotics. I ordered Rocephin to be increased to 2 g per day yesterday but for some reason this order was not followed. Currently on 2 g we' ll consider increasing to 4 times pending ID evaluation ID evaluation. Request infection control nurse to follow-up with health department regarding influenza report on work site, [employer] Monitor cultures Respiratory fever Follow-up on ID recommendations Discussed also his psychiatrist and nursing. 31 minutes spent in [id number] evaluation and coordination of care Subjective Date of service: 07/16/16 Principal diagnosis: Influenza, Strep.pneumonia sepsis Interval history: Denies cough or expectoration. He feels improved. Complains some neck pain according to family at bedside. Objective Vital Signs - 12hr 07/16/16 07/16/16 07/16/16 00:00 01:00 01:22 Temperature Pulse Rate 105 H 103 H 102 H Respiratory 20 15 Rate Blood Pressure 168/102 170/90 170/90 O2 Sat by Pulse 100 84 Oximetry 07/16/16 07/16/16 07/16/16 02:00 03:00 04:00 Temperature 98.5 F Pulse Rate 108 H 105 H 102 H Respiratory 22 25 H 23 Rate Blood Pressure 144/96 152/95 157/98 O2 Sat by Pulse 100 100 100 Oximetry 07/16/16 07/16/16 07/16/16 05:00 06:00 07:00 Temperature Pulse Rate 105 H 101 H 101 H Respiratory 12 15 15 Rate Blood Pressure 175/115 185/118 178/111 O2 Sat by Pulse 100 100 100 Oximetry 07/16/16 08:00 Temperature 98.8 F Pulse Rate Respiratory Rate Blood Pressure O2 Sat by Pulse Oximetry Constitutional: alert Eyes: non-icteric ENT: oropharynx moist Neck: supple, other (some neck pain and tenderness) Ascultation: Bilateral: clear, diminished breath sounds, rhonchi (bilateral coarse rhonchi) Cardiovascular: regular rate and rhythm Integumentary: other (sweating) Neurologic: normal mental status (looks sleepy toxin. Talks in full sentences and comprehension appeared to be normal), non-focal exam, pupils equal and round , CN II-XII normal, other (no clear-cut nuchal rigidity ) CBC and BMP: 07/16/16 10:09 07/16/16 04:16 ABG, PT/INR, D-dimer: ABG POC ABG pH 7.408 (7.35-7.45) 07/13/16 11:11 POC ABG pCO2 35.9 (35-45) 07/13/16 11:11 POC ABG pO2 79 (80-105) L 07/13/16 11:11 POC ABG HCO3 22.6 07/13/16 11:11 POC ABG Total CO2 24 07/13/16 11:11 POC ABG O2 Sat 96 07/13/16 11:11 PT/INR, D-dimer PT 14.1 Sec. (12.2-14.9) 07/09/16 14:55 INR 1.10 (0.87-1.13) 07/09/16 14:55 Abnormal lab findings: Abnormal Labs 07/09/16 07/09/16 07/10/16 18:28 22:10 00:23 WBC Hgb Hct RDW Lymph % (Auto) [place] % (Auto) Lymph # [place] # Seg Neutrophils % Seg Neuts % (Manual) Seg Neutrophils # Seg Neutrophils # Man POC ABG pH POC ABG pCO2 POC ABG pO2 Sodium Potassium Chloride Carbon Dioxide Creatinine Glucose POC Glucose 123 H 118 H Lactic Acid 2.4 H* Calcium Phosphorus Total Bilirubin AST ALT Albumin Triglycerides 07/10/16 07/10/16 07/10/16 03:22 03:22 05:35 WBC 17.4 H Hgb Hct RDW 16.2 H Lymph % (Auto) 6.8 L [place] % (Auto) 7.7 H Lymph # [place] # 1.3 H Seg Neutrophils % 85.3 H Seg Neuts % (Manual) Seg Neutrophils # 14.8 H Seg Neutrophils # Man POC ABG pH POC ABG pCO2 POC ABG pO2 Sodium 129 L Potassium Chloride 92.8 L Carbon Dioxide Creatinine Glucose 115 H POC Glucose 106 H Lactic Acid Calcium 7.8 L Phosphorus Total Bilirubin AST 42 H ALT 79 H Albumin 3.2 L Triglycerides 07/10/16 07/11/16 07/11/16 05:48 05:59 11:09 WBC 12.0 H Hgb 11.1 L Hct 33.6 L RDW 16.2 H Lymph % (Auto) 8.9 L [place] % (Auto) 8.8 H Lymph # 1.1 L [place] # 1.1 H Seg Neutrophils % 82.1 H Seg Neuts % (Manual) Seg Neutrophils # 9.8 H Seg Neutrophils # Man POC ABG pH 7.273 L POC ABG pCO2 53.4 H 34.9 L POC ABG pO2 113 H 163 H Sodium Potassium Chloride Carbon Dioxide Creatinine Glucose POC Glucose Lactic Acid Calcium Phosphorus Total Bilirubin AST ALT Albumin Triglycerides 07/11/16 07/11/16 07/12/16 11:09 11:09 20:49 WBC Hgb Hct RDW Lymph % (Auto) [place] % (Auto) Lymph # [place] # Seg Neutrophils % Seg Neuts % (Manual) Seg Neutrophils # Seg Neutrophils # Man POC ABG pH POC ABG pCO2 34.2 L POC ABG pO2 79 L Sodium Potassium Chloride Carbon Dioxide Creatinine Glucose POC Glucose Lactic Acid Calcium 8.2 L Phosphorus 1.5 L Total Bilirubin AST ALT Albumin Triglycerides 298 H 07/12/16 07/13/16 07/13/16 23:36 07:47 07:47 WBC Hgb Hct RDW 15.7 H Lymph % (Auto) [place] % (Auto) Lymph # [place] # Seg Neutrophils % Seg Neuts % (Manual) 74.0 H Seg Neutrophils # Seg Neutrophils # Man 7.8 H POC ABG pH POC ABG pCO2 POC ABG pO2 Sodium 136 L Potassium 3.3 L Chloride Carbon Dioxide 21 L Creatinine Glucose 111 H POC Glucose Lactic Acid Calcium 8.2 L Phosphorus 2.0 L D Total Bilirubin 1.4 H AST 101 H ALT 120 H Albumin 3.0 L Triglycerides 07/13/16 07/14/16 07/14/16 11:11 07:20 07:20 WBC Hgb Hct RDW 15.8 H Lymph % (Auto) 12.4 L [place] % (Auto) 11.7 H Lymph # [place] # 1.2 H Seg Neutrophils % 74.0 H Seg Neuts % (Manual) Seg Neutrophils # Seg Neutrophils # Man POC ABG pH POC ABG pCO2 POC ABG pO2 79 L Sodium Potassium Chloride Carbon Dioxide 21 L Creatinine Glucose POC Glucose Lactic Acid Calcium 8.3 L Phosphorus Total Bilirubin AST ALT Albumin Triglycerides 07/15/16 07/15/16 07/16/16 04:50 04:50 04:16 WBC Hgb Hct RDW 15.6 H Lymph % (Auto) 10.4 L [place] % (Auto) 10.3 H Lymph # 1.0 L [place] # 1.0 H Seg Neutrophils % 77.9 H Seg Neuts % (Manual) Seg Neutrophils # Seg Neutrophils # Man POC ABG pH POC ABG pCO2 POC ABG pO2 Sodium Potassium 3.5 L Chloride Carbon Dioxide 19 L Creatinine 0.6 L 0.6 L Glucose 106 H 132 H POC Glucose Lactic Acid Calcium Phosphorus Total Bilirubin AST ALT Albumin Triglycerides 07/16/16 10:09 WBC Hgb Hct RDW 16.0 H Lymph % (Auto) [place] % (Auto) 9.2 H Lymph # [place] # Seg Neutrophils % 75.9 H Seg Neuts % (Manual) Seg Neutrophils # Seg Neutrophils # Man POC ABG pH POC ABG pCO2 POC ABG pO2 Sodium Potassium Chloride Carbon Dioxide Creatinine Glucose POC Glucose Lactic Acid Calcium Phosphorus Total Bilirubin AST ALT Albumin Triglycerides
--- NOTE | 2016-07-16 17:31 | Progress Note ---
Assessment and Plan - Patient Problems (1) Acute respiratory failure Current Visit: Yes Status: Acute Qualifiers: Respiratory failure complication: R Plan to address problem: Patient is on non rebreather, oxygen support, pulmonary on board patient is getting better (2) Altered mental status Current Visit: Yes Status: Acute Qualifiers: Altered mental status type: delirium Coma depth: C Coma timing: C Qualified Code(s): R41.0 - Disorientation, unspecified Plan to address problem: Supportive care Treating Underlying cause (3) Encephalopathy Current Visit: Yes Status: Acute Plan to address problem: Supportive Care (4) Febrile illness, acute Current Visit: Yes Status: Acute Plan to address problem: Likely to pneumonia and flu, and is on antibiotics and Tamiflu (5) Hypertensive emergency Current Visit: Yes Status: Acute Plan to address problem: Continue blood pressure medications as needed History Interval history: Patient is getting better, he has some hallucinations. Hospitalist Physical - Physical exam Narrative exam: In cardiopulmonary distress. Patient is on non rebreather. Vital signs as documented. Head exam is unremarkable. No scleral icterus . Neck is without jugular venous distension, thyromegaly, or carotid bruits. Lungs are clear to auscultation. Patient is tight tachpnoeic Cardiac exam reveals regular rate and Rhythm. First and second heart sounds normal. No murmurs, rubs or gallops. Abdominal exam reveals normal bowel sounds, no masses, no organomegaly and no aortic enlargement. Extremities are nonedematous and both femoral and pedal pulses are normal. 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 - Constitutional Vitals: Temp Pulse Resp BP Pulse Ox 97.8 F 101 H 15 182/101 100 07/16/16 12:00 07/16/16 07:00 07/16/16 07:00 07/16/16 16:30 07/16/16 07:00 General appearance: Present: mild distress Results - Labs CBC & Chem 7: 07/16/16 10:09 07/16/16 04:16 Labs: Laboratory Last Values WBC 8.9 K/mm3 (4.5-11.0) 07/16/16 10:09 RBC 4.05 M/mm3 (3.65-5.03) 07/16/16 10:09 Hgb 12.1 gm/dl (11.8-15.2) 07/16/16 10:09 Hct 36.2 % (35.5-45.6) 07/16/16 10:09 MCV 90 fl (84-94) 07/16/16 10:09 MCH 30 pg (28-32) 07/16/16 10:09 MCHC 33 % (32-34) 07/16/16 10:09 RDW 16.0 % (13.2-15.2) H 07/16/16 10:09 Plt Count 422 K/mm3 (140-440) 07/16/16 10:09 Lymph % (Auto) 13.4 % (13.4-35.0) 07/16/16 10:09 [place] % (Auto) 9.2 % (0.0-7.3) H 07/16/16 10:09 Eos % (Auto) 1.1 % (0.0-4.3) 07/16/16 10:09 Baso % (Auto) 0.4 % (0.0-1.8) 07/16/16 10:09 Lymph # 1.2 K/mm3 (1.2-5.4) 07/16/16 10:09 [place] # 0.8 K/mm3 (0.0-0.8) 07/16/16 10:09 Eos # 0.1 K/mm3 (0.0-0.4) 07/16/16 10:09 Baso # 0.0 K/mm3 (0.0-0.1) 07/16/16 10:09 Add Manual Diff Complete 07/13/16 07:47 Total Counted 100 07/13/16 07:47 Seg Neutrophils % 75.9 % (40.0-70.0) H 07/16/16 10:09 Seg Neuts % (Manual) 74.0 % (40.0-70.0) H 07/13/16 07:47 Band Neutrophils % 3.0 % 07/13/16 07:47 Lymphocytes % (Manual) 15.0 % (13.4-35.0) 07/13/16 07:47 Reactive Lymphs % (Man) 0 % 07/13/16 07:47 Monocytes % (Manual) 7.0 % (0.0-7.3) 07/13/16 07:47 Eosinophils % (Manual) 1.0 % (0.0-4.3) 07/13/16 07:47 Basophils % (Manual) 0 % (0.0-1.8) 07/13/16 07:47 Metamyelocytes % 0 % 07/13/16 07:47 Myelocytes % 0 % 07/13/16 07:47 Promyelocytes % 0 % 07/13/16 07:47 Blast Cells % 0 % 07/13/16 07:47 Nucleated RBC % Not Reportable 07/13/16 07:47 Seg Neutrophils # 6.7 K/mm3 (1.8-7.7) 07/16/16 10:09 Seg Neutrophils # Man 7.8 K/mm3 (1.8-7.7) H 07/13/16 07:47 Band Neutrophils # 0.3 K/mm3 07/13/16 07:47 Lymphocytes # (Manual) 1.6 K/mm3 (1.2-5.4) 07/13/16 07:47 Abs React Lymphs (Man) 0.0 K/mm3 07/13/16 07:47 Monocytes # (Manual) 0.7 K/mm3 (0.0-0.8) 07/13/16 07:47 Eosinophils # (Manual) 0.1 K/mm3 (0.0-0.4) 07/13/16 07:47 Basophils # (Manual) 0.0 K/mm3 (0.0-0.1) 07/13/16 07:47 Metamyelocytes # 0.0 K/mm3 07/13/16 07:47 Myelocytes # 0.0 K/mm3 07/13/16 07:47 Promyelocytes # 0.0 K/mm3 07/13/16 07:47 Blast Cells # 0.0 K/mm3 07/13/16 07:47 WBC Morphology Not Reportable 07/13/16 07:47 Hypersegmented Neuts Not Reportable 07/13/16 07:47 Hyposegmented Neuts Not Reportable 07/13/16 07:47 Hypogranular Neuts Not Reportable 07/13/16 07:47 Smudge Cells Not Reportable 07/13/16 07:47 Toxic Granulation Not Reportable 07/13/16 07:47 Toxic Vacuolation Not Reportable 07/13/16 07:47 Dohle Bodies Not Reportable 07/13/16 07:47 Pelger-Huet Anomaly Not Reportable 07/13/16 07:47 Lane Rods Not Reportable 07/13/16 07:47 Platelet Estimate Appears normal 07/13/16 07:47 Clumped Platelets Not Reportable 07/13/16 07:47 Plt Clumps, EDTA Not Reportable 07/13/16 07:47 Large Platelets Not Reportable 07/13/16 07:47 Giant Platelets Not Reportable 07/13/16 07:47 Platelet Satelliting Not Reportable 07/13/16 07:47 Plt Morphology Comment Not Reportable 07/13/16 07:47 RBC Morphology Normal 07/13/16 07:47 Dimorphic RBCs Not Reportable 07/13/16 07:47 Polychromasia Not Reportable 07/13/16 07:47 Hypochromasia Not Reportable 07/13/16 07:47 Poikilocytosis Not Reportable 07/13/16 07:47 Anisocytosis Not Reportable 07/13/16 07:47 Microcytosis Not Reportable 07/13/16 07:47 Macrocytosis Not Reportable 07/13/16 07:47 Spherocytes Not Reportable 07/13/16 07:47 Pappenheimer Bodies Not Reportable 07/13/16 07:47 Sickle Cells Not Reportable 07/13/16 07:47 Target Cells Not Reportable 07/13/16 07:47 Tear Drop Cells Not Reportable 07/13/16 07:47 Ovalocytes Not Reportable 07/13/16 07:47 Helmet Cells Not Reportable 07/13/16 07:47 [place] Level Bodies Not Reportable 07/13/16 07:47 Meldrim Rings Not Reportable 07/13/16 07:47 Hobson Cells Not Reportable 07/13/16 07:47 Bite Cells Not Reportable 07/13/16 07:47 Crenated Cell Not Reportable 07/13/16 07:47 Elliptocytes Not Reportable 07/13/16 07:47 Acanthocytes (Spur) Not Reportable 07/13/16 07:47 Rouleaux Not Reportable 07/13/16 07:47 Hemoglobin C Crystals Not Reportable 07/13/16 07:47 Schistocytes Not Reportable 07/13/16 07:47 Malaria parasites Not Reportable 07/13/16 07:47 Tobias Bodies Not Reportable 07/13/16 07:47 Hem Pathologist Commnt No 07/13/16 07:47 PT 14.1 Sec. (12.2-14.9) 07/09/16 14:55 INR 1.10 (0.87-1.13) 07/09/16 14:55 POC ABG pH 7.408 (7.35-7.45) 07/13/16 11:11 POC ABG pCO2 35.9 (35-45) 07/13/16 11:11 POC ABG pO2 79 (80-105) L 07/13/16 11:11 POC ABG HCO3 22.6 07/13/16 11:11 POC ABG Total CO2 24 07/13/16 11:11 POC ABG O2 Sat 96 07/13/16 11:11 POC ABG Base Excess -2 07/13/16 11:11 FiO2 40 % 07/13/16 11:11 Sodium 137 mmol/L (137-145) 07/16/16 04:16 Potassium 3.5 mmol/L (3.6-5.0) L 07/16/16 04:16 Chloride 99.3 mmol/L (98-107) 07/16/16 04:16 Carbon Dioxide 22 mmol/L (22-30) 07/16/16 04:16 Anion Gap 19 mmol/L 07/16/16 04:16 BUN 17 mg/dL (9-20) 07/16/16 04:16 Creatinine 0.6 mg/dL (0.8-1.5) L 07/16/16 04:16 Estimated GFR > 60 ml/min 07/16/16 04:16 BUN/Creatinine Ratio 28.33 % 07/16/16 04:16 Glucose 132 mg/dL (75-100) H 07/16/16 04:16 POC Glucose 93 (70-105) 07/13/16 11:52 Lactic Acid 2.4 mmol/L (0.7-2.0) H* 07/09/16 18:28 Calcium 8.9 mg/dL (8.4-10.2) 07/16/16 04:16 Phosphorus 2.0 mg/dL (2.5-4.5) L D 07/12/16 23:36 Magnesium 2.2 mg/dL (1.7-2.3) 07/12/16 23:36 Total Bilirubin 1.4 mg/dL (0.1-1.2) H 07/13/16 07:47 Direct Bilirubin 0.3 mg/dL (0-0.2) H 07/09/16 14:55 Indirect Bilirubin 0.6 mg/dL 07/09/16 14:55 AST 101 units/L (5-40) H 07/13/16 07:47 ALT 120 units/L (7-56) H 07/13/16 07:47 Alkaline Phosphatase 80 units/L (35-129) 07/13/16 07:47 Ammonia 30.0 umol/L (25-60) 07/09/16 14:55 Troponin T < 0.010 ng/mL (0.00-0.029) 07/09/16 14:55 C-Reactive Protein 11.60 mg/dL (0.00-1.30) H 07/09/16 14:55 Total Protein 7.4 g/dL (6.3-8.2) 07/13/16 07:47 Albumin 3.0 g/dL (3.9-5) L 07/13/16 07:47 Albumin/Globulin Ratio 0.7 % 07/13/16 07:47 Triglycerides 298 mg/dL (2-149) H 07/11/16 11:09 Urine Color Yellow (Yellow) 07/09/16 14:47 Urine Turbidity Clear (Clear) 07/09/16 14:47 Urine pH 7.0 (5.0-7.0) 07/09/16 14:47 Ur Specific [place] 1.012 (1.003-1.030) 07/09/16 14:47 Urine Protein 100 mg/dl mg/dL (Negative) 07/09/16 14:47 Urine Glucose (UA) >=500 mg/dL (Negative) 07/09/16 14:47 Urine Ketones Tr mg/dL (Negative) 07/09/16 14:47 Urine Blood Mod (Negative) 07/09/16 14:47 Urine Nitrite Neg (Negative) 07/09/16 14:47 Urine Bilirubin Neg (Negative) 07/09/16 14:47 Urine Urobilinogen < 2.0 mg/dL (<2.0) 07/09/16 14:47 Ur Leukocyte Esterase Neg (Negative) 07/09/16 14:47 Urine WBC (Auto) 1.0 /HPF (0.0-6.0) 07/09/16 14:47 Urine RBC (Auto) 11.0 /HPF (0.0-6.0) 07/09/16 14:47 Urine Mucus Few /HPF 07/09/16 14:47 Urine Opiates Screen Presumptive negative 07/09/16 14:47 Urine Methadone Screen Presumptive negative 07/09/16 14:47 Ur Barbiturates Screen Presumptive negative 07/09/16 14:47 Ur Phencyclidine Scrn Presumptive negative 07/09/16 14:47 Ur Amphetamines Screen Presumptive negative 07/09/16 14:47 U Benzodiazepines Scrn Presumptive negative 07/09/16 14:47 Urine Cocaine Screen Presumptive negative 07/09/16 14:47 U Marijuana (THC) Screen Presumptive negative 07/09/16 14:47 Drugs of Abuse Note Disclamer 07/09/16 14:47
--- NOTE | 2016-07-16 19:48 | Consultation ---
History of Present Illness - Reason for Consult Consult date: 07/16/16 POSSIBLE MENINGITIS - History of Present Illness Patient is a 50 yo man who first presented to [facility] because of some flu like symtoms. He was discharged from the ER. The next day he presented to [facility], found wandering. He was restrained and elective intubation and sedation done. History was provided by the . No further history could be obtained. Because of concern for possible meningitis, infectious disease consult was made. I saw patient at bedside. He denied any other symptoms at this point except for mild occipital headache. Blood culture at the time of admission is growing strep pneumonia, however, repeat cultures are negative so far. PE. He is afebrile. Chest - good air entry cvs - s1s2 Abdomen - bs+ extremities - no edema. Pulses palpable. LABS: See lab section. CT head did not show any abnormality. ASSESSMENT 1. Sepsis secondary to strep. pneumoniae bacteremia 2. Altered mental status may be sec to strep. Meningitis cannot be ruled out. I do not see report of LP. 3. Right maxillary sinus disease. 4. Flu is less likely. Recommendation 1. Agree with ceftriaxone. Add vancomycin 1g iv twice daily. 2. cbc/bmp in am 3. d/c respiratory isolation 4. repeat ct head. Past History Past Medical History: other (unable to obtain) Past Surgical History: Other (unable to obtain) Social history: other (unable to obtain) Family history: other (unable to obtain) Medications and Allergies Allergies Allergy/AdvReac Type Severity Reaction Status Date / Time No Known Allergies Allergy Verified 06/19/15 20:46 Active Meds: Active Medications Acetaminophen (Tylenol) 650 mg FL Q4H PRN PRN Reason: Pain, Mild (1-3) Last Admin: 07/11/16 21:22 Dose: 650 mg Al Hydrox/Mg Hydrox/Simethicone (Alum-Mag Hydrox-Simeth [phone]/5ml) 30 ml PO Q4H PRN PRN Reason: Indigestion Amlodipine Besylate (Norvasc) 5 mg PO QDAY CHANDANA Last Admin: 07/16/16 10:30 Dose: 5 mg Lipase/Protease/Amylase (Pancreaze Dr 10,500 Unit) 1 each FEEDTUBE PRN PRN PRN Reason: For Clogged Feeding Tube Bisacodyl (Dulcolax) 10 mg FL QDAY PRN PRN Reason: constipation unrelieved by MOM Chlordiazepoxide HCl (Librium) 100 mg PO Q1H PRN PRN Reason: CIWA-Ar 16-25 Diphenhydramine HCl (Benadryl) 25 mg IV Q6H PRN PRN Reason: Agitation Last Admin: 07/13/16 17:45 Dose: 25 mg Enoxaparin Sodium (Lovenox) 40 mg SUB-Q QDAY CHANDANA Last Admin: 07/16/16 10:30 Dose: 40 mg Haloperidol Lactate (Haldol) 5 mg IV Q6H PRN PRN Reason: Agitation Last Admin: 07/12/16 13:30 Dose: 5 mg Hydralazine HCl (Apresoline) 10 mg IV Q4HR PRN PRN Reason: Hypertension Last Admin: 07/16/16 16:30 Dose: 10 mg Hydrophilic Ointment (Vaseline Lip Therapy) 1 applic TP Q2HR PRN PRN Reason: Dry Lips Propofol (Diprivan 10 Mg/Ml) 1,000 mg in 100 mls @ 3.062 mls/hr IV TITR CHANDANA; 5 MCG/KG/MIN PRN Reason: Protocol Last Titration: 07/11/16 05:36 Dose: 0 mcg/kg/min, 0 mls/hr Nicardipine/Sodium Chloride (Cardene Drip 40 Mg/200 Ml) 40 mg in 200 mls @ 25 mls/hr IV TITR CHANDANA; 5 MG/HR PRN Reason: Protocol Last Titration: 07/14/16 02:01 Dose: 0 mg/hr, 0 mls/hr Fentanyl Citrate (Fentanyl Drip Premix) 2,000 mcg in 100 mls @ 5.103 mls/hr IV TITR CHANDANA; 1 MCG/KG/HR PRN Reason: Protocol Last Titration: 07/11/16 10:10 Dose: 0 mcg/kg/hr, 0 mls/hr Sodium Chloride (Nacl 0.9% 1000 Ml) 1,000 mls @ 125 mls/hr IV DIRECT CHANDANA Last Infusion: 07/12/16 16:47 Dose: Infused Sodium Chloride (Nacl 0.9% 1000 Ml) 1,000 mls @ 75 mls/hr IV DIRECT CHANDANA Last Admin: 07/15/16 21:38 Dose: 75 mls/hr Ceftriaxone Sodium (Rocephin/Ns 2 Gm/100 Ml) 2 gm in 100 mls @ 200 mls/hr IV Q24HR CHANDANA PRN Reason: Protocol Last Admin: 07/16/16 10:30 Dose: 200 mls/hr Lorazepam (Ativan) 2 mg IV Q4H PRN PRN Reason: Agitation Last Admin: 07/12/16 13:30 Dose: 2 mg Lorazepam (Ativan) 4 mg IV Q1H PRN PRN Reason: CIWA-Ar 16-25 Last Admin: 07/13/16 01:49 Dose: 4 mg Lorazepam (Ativan) 4 mg IV Q15MIN PRN PRN Reason: CIWA-Ar >25 Stop: 07/17/16 19:20 Last Admin: 07/12/16 21:39 Dose: 4 mg Lorazepam (Ativan) 2 mg PO Q1H PRN PRN Reason: CIWA-Ar 8-15 Last Admin: 07/13/16 15:42 Dose: 2 mg Magnesium Hydroxide (Milk Of Magnesia) 30 ml PO Q4H PRN PRN Reason: Constipation Multi-Ingred Cream/Lotion/Oil/Oint (Artificial Tears Ophth Oint) 1 applic OU Q4HR PRN PRN Reason: Dry Eye(s) Simple Syrup (Simple Syrup) 15 ml FEEDTUBE PRN PRN PRN Reason: Hypoglycemia Simple Syrup (Simple Syrup) 30 ml FEEDTUBE PRN PRN PRN Reason: Hypoglycemia Sodium Bicarbonate (Sodium Bicarbonate) 325 mg FEEDTUBE PRN PRN PRN Reason: For Clogged Feeding Tube Sodium Chloride (Nacl 0.9% 500 Ml) 1 ml IV DIRECT [facility] Physical Examination - Constitutional Vitals: Vital Signs Temp Pulse Resp BP Pulse Ox 97.4 F L 109 H 25 H 164/88 100 07/16/16 16:00 07/16/16 19:00 07/16/16 19:00 07/16/16 19:00 07/16/16 19:00 Temperature -Last 24 Hours Temperature 97.4 F Temperature 97.8 F Temperature 98.8 F Temperature 98.5 F Temperature 98.5 F Results - Labs CBC & Chem 7: 07/16/16 10:09 07/16/16 04:16 Labs: Abnormal lab results 07/16/16 07/16/16 Range/Units 04:16 10:09 RDW 16.0 H (13.2-15.2) % [place] % (Auto) 9.2 H (0.0-7.3) % Seg Neutrophils % 75.9 H (40.0-70.0) % Potassium 3.5 L (3.6-5.0) mmol/L Creatinine 0.6 L (0.8-1.5) mg/dL Glucose 132 H (75-100) mg/dL
[2016-07-16] MEDS ORDERED: VANCOMYCIN/NS 1 GM/250 ML 250 ML IV SCH (20:00)
[2016-07-16] MEDS ORDERED: VANCOMYCIN PHARMACY TO DOSE IV SCH (21:00)
[2016-07-16] MEDS ORDERED: VANCOMYCIN VIAL 2,000 MG in NACL 0.9% 500 ML 500 ML IV ONE (21:00)
[2016-07-17] MEDS: APRESOLINE IV PRN (03:53)
[2016-07-17 09:48] LABS: Hematocrit 35.6 % (35.5-45.6); Hemoglobin 11.7 gm/dl (11.8-15.2); Mean Corpuscular HGB Conc 33 % (32-34); Mean Corpuscular Hemoglobin 30 pg (28-32); Mean Corpuscular Volume 91 fl (84-94); Platelet Count 481 K/mm3 (140-440); Red Blood Count 3.92 M/mm3 (3.65-5.03); Red Cell Distribution Width 15.9 % (13.2-15.2); White Blood Count 9.6 K/mm3 (4.5-11.0)
[2016-07-17 10:03] LABS: Anion Gap 17 mmol/L; BUN/Creatinine Ratio 28.33; Blood Urea Nitrogen 17 mg/dL (9-20); Calcium 8.7 mg/dL (8.4-10.2); Carbon Dioxide 21 mmol/L (22-30); Chloride 105.2 mmol/L (98-107); Glucose 129 mg/dL (75-100); Potassium 3.7 mmol/L (3.6-5.0); Sodium 139 mmol/L (137-145)
[2016-07-17] MEDS: ROCEPHIN/NS 2 GM/100 ML 2 GM/100 ML BAG IV SCH (10:30)
[2016-07-17] MEDS: LOVENOX SUB-Q SCH (10:30)
[2016-07-17] MEDS: NORVASC PO SCH (10:30)
[2016-07-17] MEDS: VANCOMYCIN VIAL 1,500 MG in NACL 0.9% 500 ML 500 ML IV SCH ×2 (12:17→21:51)
--- NOTE | 2016-07-17 16:03 | Progress Note ---
Assessment and Plan Acute respiratory failure. Respiratory stable. Severe sepsis, strep pneumonia. No pneumonia per x-rays Influenza and family report what appears to be influenza-like illness in fellow workers on the past couple weeks Streptococcal pneumonia. Clear x-ray at this point AMS. Improving Recommendations Continue antibiotics. I ordered Rocephin to be increased to 2 g per day yesterday but for some reason this order was not followed. Patient is now on Rocephin 2 g and vancomycin as per ID Request infection control nurse to follow-up with health department regarding influenza report on work site, [employer] Monitor cultures Follow-up on ID recommendations Pulmonary-iverson can be moved out of ICU Subjective Date of service: 07/17/16 Principal diagnosis: Influenza, Strep.pneumonia sepsis Interval history: Patient awake and alert. Wants to come off off restraints. Objective Vital Signs - 12hr 07/17/16 07/17/16 07/17/16 05:00 06:00 07:00 Temperature Pulse Rate 102 H 84 98 H Respiratory 21 22 20 Rate Blood Pressure 158/94 146/82 155/98 O2 Sat by Pulse 100 100 100 Oximetry 07/17/16 07/17/16 07/17/16 08:00 09:00 10:00 Temperature 98.5 F Pulse Rate 95 H 99 H 86 Respiratory 24 23 22 Rate Blood Pressure 156/101 151/96 137/89 O2 Sat by Pulse 100 96 95 Oximetry 07/17/16 07/17/16 07/17/16 11:00 11:54 12:00 Temperature 98.9 F Pulse Rate 96 H 93 H Respiratory 18 22 Rate Blood Pressure 140/95 144/96 O2 Sat by Pulse 98 97 Oximetry 07/17/16 07/17/16 07/17/16 13:00 14:00 15:00 Temperature Pulse Rate 88 100 H 90 Respiratory 21 15 22 Rate Blood Pressure 153/93 160/104 156/99 O2 Sat by Pulse 97 97 98 Oximetry Constitutional: alert Eyes: non-icteric ENT: oropharynx moist Neck: supple, other (some neck pain and tenderness) Ascultation: Bilateral: clear, diminished breath sounds, rhonchi (bilateral coarse rhonchi) Cardiovascular: regular rate and rhythm Integumentary: other (sweating) Neurologic: normal mental status (looks sleepy toxin. Talks in full sentences and comprehension appeared to be normal), non-focal exam, pupils equal and round , CN II-XII normal, other (no clear-cut nuchal rigidity ) CBC and BMP: 07/17/16 09:29 07/17/16 09:29 ABG, PT/INR, D-dimer: ABG POC ABG pH 7.408 (7.35-7.45) 07/13/16 11:11 POC ABG pCO2 35.9 (35-45) 07/13/16 11:11 POC ABG pO2 79 (80-105) L 07/13/16 11:11 POC ABG HCO3 22.6 07/13/16 11:11 POC ABG Total CO2 24 07/13/16 11:11 POC ABG O2 Sat 96 07/13/16 11:11 PT/INR, D-dimer PT 14.1 Sec. (12.2-14.9) 07/09/16 14:55 INR 1.10 (0.87-1.13) 07/09/16 14:55 Abnormal lab findings: Abnormal Labs 07/09/16 07/09/16 07/10/16 18:28 22:10 00:23 WBC Hgb Hct RDW Plt Count Lymph % (Auto) [place] % (Auto) Lymph # [place] # Seg Neutrophils % Seg Neuts % (Manual) Seg Neutrophils # Seg Neutrophils # Man POC ABG pH POC ABG pCO2 POC ABG pO2 Sodium Potassium Chloride Carbon Dioxide Creatinine Glucose POC Glucose 123 H 118 H Lactic Acid 2.4 H* Calcium Phosphorus Total Bilirubin AST ALT Albumin Triglycerides 07/10/16 07/10/16 07/10/16 03:22 03:22 05:35 WBC 17.4 H Hgb Hct RDW 16.2 H Plt Count Lymph % (Auto) 6.8 L [place] % (Auto) 7.7 H Lymph # [place] # 1.3 H Seg Neutrophils % 85.3 H Seg Neuts % (Manual) Seg Neutrophils # 14.8 H Seg Neutrophils # Man POC ABG pH POC ABG pCO2 POC ABG pO2 Sodium 129 L Potassium Chloride 92.8 L Carbon Dioxide Creatinine Glucose 115 H POC Glucose 106 H Lactic Acid Calcium 7.8 L Phosphorus Total Bilirubin AST 42 H ALT 79 H Albumin 3.2 L Triglycerides 07/10/16 07/11/16 07/11/16 05:48 05:59 11:09 WBC 12.0 H Hgb 11.1 L Hct 33.6 L RDW 16.2 H Plt Count Lymph % (Auto) 8.9 L [place] % (Auto) 8.8 H Lymph # 1.1 L [place] # 1.1 H Seg Neutrophils % 82.1 H Seg Neuts % (Manual) Seg Neutrophils # 9.8 H Seg Neutrophils # Man POC ABG pH 7.273 L POC ABG pCO2 53.4 H 34.9 L POC ABG pO2 113 H 163 H Sodium Potassium Chloride Carbon Dioxide Creatinine Glucose POC Glucose Lactic Acid Calcium Phosphorus Total Bilirubin AST ALT Albumin Triglycerides 07/11/16 07/11/16 07/12/16 11:09 11:09 20:49 WBC Hgb Hct RDW Plt Count Lymph % (Auto) [place] % (Auto) Lymph # [place] # Seg Neutrophils % Seg Neuts % (Manual) Seg Neutrophils # Seg Neutrophils # Man POC ABG pH POC ABG pCO2 34.2 L POC ABG pO2 79 L Sodium Potassium Chloride Carbon Dioxide Creatinine Glucose POC Glucose Lactic Acid Calcium 8.2 L Phosphorus 1.5 L Total Bilirubin AST ALT Albumin Triglycerides 298 H 07/12/16 07/13/16 07/13/16 23:36 07:47 07:47 WBC Hgb Hct RDW 15.7 H Plt Count Lymph % (Auto) [place] % (Auto) Lymph # [place] # Seg Neutrophils % Seg Neuts % (Manual) 74.0 H Seg Neutrophils # Seg Neutrophils # Man 7.8 H POC ABG pH POC ABG pCO2 POC ABG pO2 Sodium 136 L Potassium 3.3 L Chloride Carbon Dioxide 21 L Creatinine Glucose 111 H POC Glucose Lactic Acid Calcium 8.2 L Phosphorus 2.0 L D Total Bilirubin 1.4 H AST 101 H ALT 120 H Albumin 3.0 L Triglycerides 07/13/16 07/14/16 07/14/16 11:11 07:20 07:20 WBC Hgb Hct RDW 15.8 H Plt Count Lymph % (Auto) 12.4 L [place] % (Auto) 11.7 H Lymph # [place] # 1.2 H Seg Neutrophils % 74.0 H Seg Neuts % (Manual) Seg Neutrophils # Seg Neutrophils # Man POC ABG pH POC ABG pCO2 POC ABG pO2 79 L Sodium Potassium Chloride Carbon Dioxide 21 L Creatinine Glucose POC Glucose Lactic Acid Calcium 8.3 L Phosphorus Total Bilirubin AST ALT Albumin Triglycerides 07/15/16 07/15/16 07/16/16 04:50 04:50 04:16 WBC Hgb Hct RDW 15.6 H Plt Count Lymph % (Auto) 10.4 L [place] % (Auto) 10.3 H Lymph # 1.0 L [place] # 1.0 H Seg Neutrophils % 77.9 H Seg Neuts % (Manual) Seg Neutrophils # Seg Neutrophils # Man POC ABG pH POC ABG pCO2 POC ABG pO2 Sodium Potassium 3.5 L Chloride Carbon Dioxide 19 L Creatinine 0.6 L 0.6 L Glucose 106 H 132 H POC Glucose Lactic Acid Calcium Phosphorus Total Bilirubin AST ALT Albumin Triglycerides 07/16/16 07/17/16 07/17/16 10:09 09:29 09:29 WBC Hgb 11.7 L Hct RDW 16.0 H 15.9 H Plt Count 481 H Lymph % (Auto) [place] % (Auto) 9.2 H Lymph # [place] # Seg Neutrophils % 75.9 H Seg Neuts % (Manual) Seg Neutrophils # Seg Neutrophils # Man POC ABG pH POC ABG pCO2 POC ABG pO2 Sodium Potassium Chloride Carbon Dioxide 21 L Creatinine 0.6 L Glucose 129 H POC Glucose Lactic Acid Calcium Phosphorus Total Bilirubin AST ALT Albumin Triglycerides
--- NOTE | 2016-07-17 16:31 | Progress Note ---
Assessment and Plan - Patient Problems (1) Acute respiratory failure Current Visit: Yes Status: Acute Qualifiers: Respiratory failure complication: R Plan to address problem: Patient is on non rebreather, oxygen support, pulmonary on board patient is getting better (2) Altered mental status Current Visit: Yes Status: Acute Qualifiers: Altered mental status type: delirium Coma depth: C Coma timing: C Qualified Code(s): R41.0 - Disorientation, unspecified Plan to address problem: Supportive care Treating Underlying cause (3) Encephalopathy Current Visit: Yes Status: Acute Plan to address problem: Supportive Care (4) Febrile illness, acute Current Visit: Yes Status: Acute Plan to address problem: Likely to pneumonia and flu, and is on antibiotics and Tamiflu (5) Hypertensive emergency Current Visit: Yes Status: Acute Plan to address problem: Continue blood pressure medications as needed (6) Sepsis Current Visit: Yes Status: Acute Qualifiers: Sepsis type: S (7) Sepsis due to alpha-hemolytic Streptococcus Current Visit: Yes Status: Acute Plan to address problem: On IV antibiotics, managed according to sepsis protocol. History Interval history: Patient is getting better, he is alert and oriented. His girl friend was in the room when I evaluated the patient. Hospitalist Physical - Physical exam Narrative exam: Note in cardiopulmonary distress Vital signs as documented. Head exam is unremarkable. No scleral icterus . Neck is without jugular venous distension, thyromegaly, or carotid bruits. Lungs are clear to auscultation. Cardiac exam reveals regular rate and Rhythm. First and second heart sounds normal. No murmurs, rubs or gallops. Abdominal exam reveals normal bowel sounds, no masses, no organomegaly and no aortic enlargement. Extremities are nonedematous and both femoral and pedal pulses are normal. 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 - Constitutional Vitals: Temp Pulse Resp BP Pulse Ox 98.4 F 83 21 166/92 96 07/17/16 16:00 07/17/16 16:00 07/17/16 16:00 07/17/16 16:00 07/17/16 16:00 General appearance: Present: mild distress Results - Labs CBC & Chem 7: 07/17/16 09:29 07/17/16 09:29 Labs: Laboratory Last Values WBC 9.6 K/mm3 (4.5-11.0) 07/17/16 09:29 RBC 3.92 M/mm3 (3.65-5.03) 07/17/16 09:29 Hgb 11.7 gm/dl (11.8-15.2) L 07/17/16 09:29 Hct 35.6 % (35.5-45.6) 07/17/16 09:29 MCV 91 fl (84-94) 07/17/16 09:29 MCH 30 pg (28-32) 07/17/16 09: MCHC 33 % (32-34) 07/17/16 09:29 RDW 15.9 % (13.2-15.2) H 07/17/16 09:29 Plt Count 481 K/mm3 (140-440) H 07/17/16 09:29 Lymph % (Auto) 13.4 % (13.4-35.0) 07/16/16 10:09 [place] % (Auto) 9.2 % (0.0-7.3) H 07/16/16 10:09 Eos % (Auto) 1.1 % (0.0-4.3) 07/16/16 10:09 Baso % (Auto) 0.4 % (0.0-1.8) 07/16/16 10:09 Lymph # 1.2 K/mm3 (1.2-5.4) 07/16/16 10:09 [place] # 0.8 K/mm3 (0.0-0.8) 07/16/16 10:09 Eos # 0.1 K/mm3 (0.0-0.4) 07/16/16 10:09 Baso # 0.0 K/mm3 (0.0-0.1) 07/16/16 10:09 Add Manual Diff Complete 07/13/16 07:47 Total Counted 100 07/13/16 07:47 Seg Neutrophils % 75.9 % (40.0-70.0) H 07/16/16 10:09 Seg Neuts % (Manual) 74.0 % (40.0-70.0) H 07/13/16 07:47 Band Neutrophils % 3.0 % 07/13/16 07:47 Lymphocytes % (Manual) 15.0 % (13.4-35.0) 07/13/16 07:47 Reactive Lymphs % (Man) 0 % 07/13/16 07:47 Monocytes % (Manual) 7.0 % (0.0-7.3) 07/13/16 07:47 Eosinophils % (Manual) 1.0 % (0.0-4.3) 07/13/16 07:47 Basophils % (Manual) 0 % (0.0-1.8) 07/13/16 07:47 Metamyelocytes % 0 % 07/13/16 07:47 Myelocytes % 0 % 07/13/16 07:47 Promyelocytes % 0 % 07/13/16 07:47 Blast Cells % 0 % 07/13/16 07:47 Nucleated RBC % Not Reportable 07/13/16 07:47 Seg Neutrophils # 6.7 K/mm3 (1.8-7.7) 07/16/16 10:09 Seg Neutrophils # Man 7.8 K/mm3 (1.8-7.7) H 07/13/16 07:47 Band Neutrophils # 0.3 K/mm3 07/13/16 07:47 Lymphocytes # (Manual) 1.6 K/mm3 (1.2-5.4) 07/13/16 07:47 Abs React Lymphs (Man) 0.0 K/mm3 07/13/16 07:47 Monocytes # (Manual) 0.7 K/mm3 (0.0-0.8) 07/13/16 07:47 Eosinophils # (Manual) 0.1 K/mm3 (0.0-0.4) 07/13/16 07:47 Basophils # (Manual) 0.0 K/mm3 (0.0-0.1) 07/13/16 07:47 Metamyelocytes # 0.0 K/mm3 07/13/16 07:47 Myelocytes # 0.0 K/mm3 07/13/16 07:47 Promyelocytes # 0.0 K/mm3 07/13/16 07:47 Blast Cells # 0.0 K/mm3 07/13/16 07:47 WBC Morphology Not Reportable 07/13/16 07:47 Hypersegmented Neuts Not Reportable 07/13/16 07:47 Hyposegmented Neuts Not Reportable 07/13/16 07:47 Hypogranular Neuts Not Reportable 07/13/16 07:47 Smudge Cells Not Reportable 07/13/16 07:47 Toxic Granulation Not Reportable 07/13/16 07:47 Toxic Vacuolation Not Reportable 07/13/16 07:47 Dohle Bodies Not Reportable 07/13/16 07:47 Pelger-Huet Anomaly Not Reportable 07/13/16 07:47 Lane Rods Not Reportable 07/13/16 07:47 Platelet Estimate Appears normal 07/13/16 07:47 Clumped Platelets Not Reportable 07/13/16 07:47 Plt Clumps, EDTA Not Reportable 07/13/16 07:47 Large Platelets Not Reportable 07/13/16 07:47 Giant Platelets Not Reportable 07/13/16 07:47 Platelet Satelliting Not Reportable 07/13/16 07:47 Plt Morphology Comment Not Reportable 07/13/16 07:47 RBC Morphology Normal 07/13/16 07:47 Dimorphic RBCs Not Reportable 07/13/16 07:47 Polychromasia Not Reportable 07/13/16 07:47 Hypochromasia Not Reportable 07/13/16 07:47 Poikilocytosis Not Reportable 07/13/16 07:47 Anisocytosis Not Reportable 07/13/16 07:47 Microcytosis Not Reportable 07/13/16 07:47 Macrocytosis Not Reportable 07/13/16 07:47 Spherocytes Not Reportable 07/13/16 07:47 Pappenheimer Bodies Not Reportable 07/13/16 07:47 Sickle Cells Not Reportable 07/13/16 07:47 Target Cells Not Reportable 07/13/16 07:47 Tear Drop Cells Not Reportable 07/13/16 07:47 Ovalocytes Not Reportable 07/13/16 07:47 Helmet Cells Not Reportable 07/13/16 07:47 [place] Bodies Not Reportable 07/13/16 07:47 [place] Rings Not Reportable 07/13/16 07:47 [place] Cells Not Reportable 07/13/16 07:47 Bite Cells Not Reportable 07/13/16 07:47 Crenated Cell Not Reportable 07/13/16 07:47 Elliptocytes Not Reportable 07/13/16 07:47 Acanthocytes (Spur) Not Reportable 07/13/16 07:47 Rouleaux Not Reportable 07/13/16 07:47 Hemoglobin C Crystals Not Reportable 07/13/16 07:47 Schistocytes Not Reportable 07/13/16 07:47 Malaria parasites Not Reportable 07/13/16 07:47 Tobias Bodies Not Reportable 07/13/16 07:47 Hem Pathologist Commnt No 07/13/16 07:47 PT 14.1 Sec. (12.2-14.9) 07/09/16 14:55 INR 1.10 (0.87-1.13) 07/09/16 14:55 POC ABG pH 7.408 (7.35-7.45) 07/13/16 11:11 POC ABG pCO2 35.9 (35-45) 07/13/16 11:11 POC ABG pO2 79 (80-105) L 07/13/16 11:11 POC ABG HCO3 22.6 07/13/16 11:11 POC ABG Total CO2 24 07/13/16 11:11 POC ABG O2 Sat 96 07/13/16 11:11 POC ABG Base Excess -2 07/13/16 11:11 FiO2 40 % 07/13/16 11:11 Sodium 139 mmol/L (137-145) 07/17/16 09:29 Potassium 3.7 mmol/L (3.6-5.0) 07/17/16 09:29 Chloride 105.2 mmol/L (98-107) 07/17/16 09:29 Carbon Dioxide 21 mmol/L (22-30) L 07/17/16 09:29 Anion Gap 17 mmol/L 07/17/16 09:29 BUN 17 mg/dL (9-20) 07/17/16 09:29 Creatinine 0.6 mg/dL (0.8-1.5) L 07/17/16 09:29 Estimated GFR > 60 ml/min 07/17/16 09:29 BUN/Creatinine Ratio 28.33 % 07/17/16 09:29 Glucose 129 mg/dL (75-100) H 07/17/16 09:29 POC Glucose 93 (70-105) 07/13/16 11:52 Lactic Acid 2.4 mmol/L (0.7-2.0) H* 07/09/16 18:28 Calcium 8.7 mg/dL (8.4-10.2) 07/17/16 09:29 Phosphorus 2.0 mg/dL (2.5-4.5) L D 07/12/16 23:36 Magnesium 2.2 mg/dL (1.7-2.3) 07/12/16 23:36 Total Bilirubin 1.4 mg/dL (0.1-1.2) H 07/13/16 07:47 Direct Bilirubin 0.3 mg/dL (0-0.2) H 07/09/16 14:55 Indirect Bilirubin 0.6 mg/dL 07/09/16 14:55 AST 101 units/L (5-40) H 07/13/16 07:47 ALT 120 units/L (7-56) H 07/13/16 07:47 Alkaline Phosphatase 80 units/L (35-129) 07/13/16 07:47 Ammonia 30.0 umol/L (25-60) 07/09/16 14:55 Troponin T < 0.010 ng/mL (0.00-0.029) 07/09/16 14:55 C-Reactive Protein 11.60 mg/dL (0.00-1.30) H 07/09/16 14:55 Total Protein 7.4 g/dL (6.3-8.2) 07/13/16 07:47 Albumin 3.0 g/dL (3.9-5) L 07/13/16 07:47 Albumin/Globulin Ratio 0.7 % 07/13/16 07:47 Triglycerides 298 mg/dL (2-149) H 07/11/16 11:09 Urine Color Yellow (Yellow) 07/09/16 14:47 Urine Turbidity Clear (Clear) 07/09/16 14:47 Urine pH 7.0 (5.0-7.0) 07/09/16 14:47 Ur Specific [place] 1.012 (1.003-1.030) 07/09/16 14:47 Urine Protein 100 mg/dl mg/dL (Negative) 07/09/16 14:47 Urine Glucose (UA) >=500 mg/dL (Negative) 07/09/16 14:47 Urine Ketones Tr mg/dL (Negative) 07/09/16 14:47 Urine Blood Mod (Negative) 07/09/16 14:47 Urine Nitrite Neg (Negative) 07/09/16 14:47 Urine Bilirubin Neg (Negative) 07/09/16 14:47 Urine Urobilinogen < 2.0 mg/dL (<2.0) 07/09/16 14:47 Ur Leukocyte Esterase Neg (Negative) 07/09/16 14:47 Urine WBC (Auto) 1.0 /HPF (0.0-6.0) 07/09/16 14:47 Urine RBC (Auto) 11.0 /HPF (0.0-6.0) 07/09/16 14:47 Urine Mucus Few /HPF 07/09/16 14:47 Urine Opiates Screen Presumptive negative 07/09/16 14:47 Urine Methadone Screen Presumptive negative 07/09/16 14:47 Ur Barbiturates Screen Presumptive negative 07/09/16 14:47 Ur Phencyclidine Scrn Presumptive negative 07/09/16 14:47 Ur Amphetamines Screen Presumptive negative 07/09/16 14:47 U Benzodiazepines Scrn Presumptive negative 07/09/16 14:47 Urine Cocaine Screen Presumptive negative 07/09/16 14:47 U Marijuana (THC) Screen Presumptive negative 07/09/16 14:47 Drugs of Abuse Note Disclamer 07/09/16 14:47
--- NOTE | 2016-07-17 19:11 | Progress Note ---
Subjective Date of service: 07/17/16 Principal diagnosis: Influenza, Strep.pneumonia sepsis Interval history: No new issues today. More awake. PHYSICAL EXAM VS. Stable. No fever Chest - good air entry cvs - s1s2 abd - bs+ LABS See lab section ASSESSMENT 1. Sepsis 2. Bacteremia 3. Obesity rec stable for floor. d/c isolation repeat ct head. Objective - Constitutional Vitals: Vital Signs Temp Pulse Resp BP Pulse Ox 98.7 F 83 21 166/92 96 07/17/16 16:00 07/17/16 16:00 07/17/16 16:00 07/17/16 16:00 07/17/16 16:00 Temperature -Last 24 Hours Temperature 98.7 F Temperature 98.4 F Temperature 98.9 F Temperature 98.5 F Temperature 98.2 F Temperature 98.7 F Temperature 99.1 F - Labs CBC & Chem 7: 07/17/16 09:29 07/17/16 09:29 Labs: Abnormal lab results 07/17/16 07/17/16 Range/Units 09:29 09:29 Hgb 11.7 L (11.8-15.2) gm/dl RDW 15.9 H (13.2-15.2) % Plt Count 481 H (140-440) K/mm3 Carbon Dioxide 21 L (22-30) mmol/L Creatinine 0.6 L (0.8-1.5) mg/dL Glucose 129 H (75-100) mg/dL
--- NOTE | 2016-07-17 21:10 | Consultation ---
History of Present Illness - Reason for Consult Consult date: 07/17/16 Reason for consult: confusion Requesting physician: MAYITO HOPE - Chief Complaint Chief complaint: altered mental status - History of Present Psychiatric Illness Mr. Shahid Roche is a 50 year old male seen in the intensive care unit for psychiatric consultation. Per the record he was disoriented, confused, and was found wandering in the front of the hospital prior to arrival. He is being treated for sepsis, febrile illness, and acute respiratory failure. At the time of interview he was drowsy but otherwise able to answer questions appropriately. He states he was not thinking clearly when he first arrived at the hospital. He was being treated with tamiflu, tessalon, and zofran after he was diagnosed with the flu, per the record. When his condition worsened his girlfriend dropped him off and urgent care. He was then found wandering in front of the hospital. He denies a history of mental health conditions. He denies regular use of alcohol or illicit substances. Medications and Allergies Allergies Allergy/AdvReac Type Severity Reaction Status Date / Time No Known Allergies Allergy Verified 06/19/15 20:46 Active Meds: Active Medications Acetaminophen (Tylenol) 650 mg IL Q4H PRN PRN Reason: Pain, Mild (1-3) Last Admin: 07/11/16 21:22 Dose: 650 mg Al Hydrox/Mg Hydrox/Simethicone (Alum-Mag Hydrox-Simeth [phone]/5ml) 30 ml PO Q4H PRN PRN Reason: Indigestion Amlodipine Besylate (Norvasc) 5 mg PO QDAY CHANDANA Last Admin: 07/17/16 10:30 Dose: 5 mg Lipase/Protease/Amylase (Pancreaze Dr 10,500 Unit) 1 each FEEDTUBE PRN PRN PRN Reason: For Clogged Feeding Tube Bisacodyl (Dulcolax) 10 mg IL QDAY PRN PRN Reason: constipation unrelieved by MOM Chlordiazepoxide HCl (Librium) 100 mg PO Q1H PRN PRN Reason: CIWA-Ar 16-25 Diphenhydramine HCl (Benadryl) 25 mg IV Q6H PRN PRN Reason: Agitation Last Admin: 07/13/16 17:45 Dose: 25 mg Enoxaparin Sodium (Lovenox) 40 mg SUB-Q QDAY [facility] Last Admin: 07/17/16 10:30 Dose: 40 mg Haloperidol Lactate (Haldol) 5 mg IV Q6H PRN PRN Reason: Agitation Last Admin: 07/12/16 13:30 Dose: 5 mg Hydralazine HCl (Apresoline) 10 mg IV Q4HR PRN PRN Reason: Hypertension Last Admin: 07/17/16 03:53 Dose: 10 mg Hydrophilic Ointment (Vaseline Lip Therapy) 1 applic TP Q2HR PRN PRN Reason: Dry Lips Ceftriaxone Sodium (Rocephin/Ns 2 Gm/100 Ml) 2 gm in 100 mls @ 200 mls/hr IV Q24HR CHANDANA PRN Reason: Protocol Last Admin: 07/17/16 10:30 Dose: 200 mls/hr Vancomycin HCl 1,500 mg/ (Sodium Chloride) 500 mls @ 333.333 mls/hr IV Q12H [facility] Last Admin: 07/17/16 12:17 Dose: 333.333 mls/hr Lorazepam (Ativan) 2 mg IV Q4H PRN PRN Reason: Agitation Last Admin: 07/12/16 13:30 Dose: 2 mg Lorazepam (Ativan) 2 mg PO Q1H PRN PRN Reason: CIWA-Ar 8-15 Last Admin: 07/13/16 15:42 Dose: 2 mg Magnesium Hydroxide (Milk Of Magnesia) 30 ml PO Q4H PRN PRN Reason: Constipation Multi-Ingred Cream/Lotion/Oil/Oint (Artificial Tears Ophth Oint) 1 applic OU Q4HR PRN PRN Reason: Dry Eye(s) Simple Syrup (Simple Syrup) 15 ml FEEDTUBE PRN PRN PRN Reason: Hypoglycemia Sodium Bicarbonate (Sodium Bicarbonate) 325 mg FEEDTUBE PRN PRN PRN Reason: For Clogged Feeding Tube Vancomycin HCl (Vancomycin Pharmacy To Dose) 1 each IV PKCONSULT [facility] Past psychiatric history - Past Medical History Past Medical History: hypertension, other (sepsis) - past Psychiatric treatment and history psychiatric treatment history: denies - Social History Social history: single (has girlfriend), other (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 Orientation: time, place, person Affect: normal Mood: appropriate, calm Thought Process: Intact Perceptions: none Speech: normal rate and pattern Concentration: focused Motor activity: lethargic Level of consciousness: sedated Memory: Intact Sleep Symptoms: None Appetite: decreased Interaction: cooperative, pleasant Results Result Diagrams: 07/17/16 09:29 07/17/16 09:29 Abnormal lab results 07/17/16 07/17/16 Range/Units 09:29 09:29 Hgb 11.7 L (11.8-15.2) gm/dl RDW 15.9 H (13.2-15.2) % Plt Count 481 H (140-440) K/mm3 Carbon Dioxide 21 L (22-30) mmol/L Creatinine 0.6 L (0.8-1.5) mg/dL Glucose 129 H (75-100) mg/dL All other labs normal. Assessment and Plan Assessment and plan: Continue medical treatment and his mental state should improve. Subjectively, Mr. Roche reports improvement in his level of alertness and coherence. - Psychiatric problem (1) Altered mental status Current Visit: Yes Status: Acute Qualifiers: Altered mental status type: delirium Coma depth: C Coma timing: C Qualified Code(s): R41.0 - Disorientation, unspecified
[2016-07-18] MEDS: VANCOMYCIN VIAL 1,500 MG in NACL 0.9% 500 ML 500 ML IV SCH ×2 (09:00→22:20)
[2016-07-18 09:33] LABS: Basophils % (Auto) 0.2 % (0.0-1.8); Eosinophils % (Auto) 1.5 % (0.0-4.3); Hematocrit 35.8 % (35.5-45.6); Hemoglobin 11.7 gm/dl (11.8-15.2); Mean Corpuscular HGB Conc 33 % (32-34); Mean Corpuscular Hemoglobin 29 pg (28-32); Mean Corpuscular Volume 90 fl (84-94); Platelet Count 526 K/mm3 (140-440); Red Blood Count 3.99 M/mm3 (3.65-5.03); Red Cell Distribution Width 15.9 % (13.2-15.2); White Blood Count 9.6 K/mm3 (4.5-11.0)
[2016-07-18 09:50] LABS: Anion Gap 21 mmol/L; BUN/Creatinine Ratio 21.42; Blood Urea Nitrogen 15 mg/dL (9-20); Calcium 8.7 mg/dL (8.4-10.2); Carbon Dioxide 20 mmol/L (22-30); Chloride 101.8 mmol/L (98-107); Glucose 91 mg/dL (75-100); Potassium 3.9 mmol/L (3.6-5.0); Sodium 139 mmol/L (137-145)
[2016-07-18] MEDS: ROCEPHIN/NS 2 GM/100 ML 2 GM/100 ML BAG IV SCH (10:49)
[2016-07-18] MEDS: LOVENOX SUB-Q SCH (10:50)
[2016-07-18] MEDS: NORVASC PO SCH (10:50)
--- NOTE | 2016-07-18 11:31 | Progress Note ---
Assessment and Plan - Patient Problems (1) Acute respiratory failure Current Visit: Yes Status: Acute Qualifiers: Respiratory failure complication: R Plan to address problem: Resolved (2) Altered mental status Current Visit: Yes Status: Acute Qualifiers: Altered mental status type: delirium Coma depth: C Coma timing: C Qualified Code(s): R41.0 - Disorientation, unspecified Plan to address problem: Supportive care Treating Underlying cause (3) Encephalopathy Current Visit: Yes Status: Acute Plan to address problem: Supportive Care (4) Febrile illness, acute Current Visit: Yes Status: Acute Plan to address problem: Likely to pneumonia and flu, and is on antibiotics and Tamiflu (5) Hypertensive emergency Current Visit: Yes Status: Acute Plan to address problem: Continue blood pressure medications as needed (6) Sepsis Current Visit: Yes Status: Acute Qualifiers: Sepsis type: S (7) Sepsis due to alpha-hemolytic Streptococcus Current Visit: Yes Status: Acute Plan to address problem: On IV antibiotics, managed according to sepsis protocol. History Interval history: Patient is getting better, he is alert and oriented. He has strabismus but no visual problems. No fevers chills, headache. Hospitalist Physical - Physical exam Narrative exam: Note in cardiopulmonary distress Vital signs as documented. Head exam is unremarkable. No scleral icterus . Neck is without jugular venous distension, thyromegaly, or carotid bruits. Lungs are clear to auscultation. Cardiac exam reveals regular rate and Rhythm. First and second heart sounds normal. No murmurs, rubs or gallops. Abdominal exam reveals normal bowel sounds, no masses, no organomegaly and no aortic enlargement. Extremities are nonedematous and both femoral and pedal pulses are normal. 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 - Constitutional Vitals: Temp Pulse Resp BP Pulse Ox 98.8 F 92 H 20 150/99 98 07/18/16 08:35 07/18/16 10:50 07/18/16 08:35 07/18/16 10:50 07/18/16 08:35 General appearance: Present: mild distress Results - Labs CBC & Chem 7: 07/18/16 08:26 07/18/16 08:26 Labs: Laboratory Last Values WBC 9.6 K/mm3 (4.5-11.0) 07/18/16 08:26 RBC 3.99 M/mm3 (3.65-5.03) 07/18/16 08: Hgb 11.7 gm/dl (11.8-15.2) L 07/18/16 08: Hct 35.8 % (35.5-45.6) 07/18/16 08: MCV 90 fl (84-94) 07/18/16 08: MCH 29 pg (28-32) 07/18/16 08: MCHC 33 % (32-34) 07/18/16 08: RDW 15.9 % (13.2-15.2) H 07/18/16 08:26 Plt Count 526 K/mm3 (140-440) H 07/18/16 08:26 Lymph % (Auto) 16.4 % (13.4-35.0) 07/18/16 08: [place] % (Auto) 7.6 % (0.0-7.3) H 07/18/16 08: Eos % (Auto) 1.5 % (0.0-4.3) 07/18/16 08: Baso % (Auto) 0.2 % (0.0-1.8) 07/18/16 08: Lymph # 1.6 K/mm3 (1.2-5.4) 07/18/16 08: [place] # 0.7 K/mm3 (0.0-0.8) 07/18/16 08: Eos # 0.1 K/mm3 (0.0-0.4) 07/18/16 08: Baso # 0.0 K/mm3 (0.0-0.1) 07/18/16 08:26 Add Manual Diff Complete 07/13/16 07:47 Total Counted 100 07/13/16 07:47 Seg Neutrophils % 74.3 % (40.0-70.0) H 07/18/16 08:26 Seg Neuts % (Manual) 74.0 % (40.0-70.0) H 07/13/16 07:47 Band Neutrophils % 3.0 % 07/13/16 07:47 Lymphocytes % (Manual) 15.0 % (13.4-35.0) 07/13/16 07:47 Reactive Lymphs % (Man) 0 % 07/13/16 07:47 Monocytes % (Manual) 7.0 % (0.0-7.3) 07/13/16 07:47 Eosinophils % (Manual) 1.0 % (0.0-4.3) 07/13/16 07:47 Basophils % (Manual) 0 % (0.0-1.8) 07/13/16 07:47 Metamyelocytes % 0 % 07/13/16 07:47 Myelocytes % 0 % 07/13/16 07:47 Promyelocytes % 0 % 07/13/16 07:47 Blast Cells % 0 % 07/13/16 07:47 Nucleated RBC % Not Reportable 07/13/16 07:47 Seg Neutrophils # 7.1 K/mm3 (1.8-7.7) 07/18/16 08:26 Seg Neutrophils # Man 7.8 K/mm3 (1.8-7.7) H 07/13/16 07:47 Band Neutrophils # 0.3 K/mm3 07/13/16 07:47 Lymphocytes # (Manual) 1.6 K/mm3 (1.2-5.4) 07/13/16 07:47 Abs React Lymphs (Man) 0.0 K/mm3 07/13/16 07:47 Monocytes # (Manual) 0.7 K/mm3 (0.0-0.8) 07/13/16 07:47 Eosinophils # (Manual) 0.1 K/mm3 (0.0-0.4) 07/13/16 07:47 Basophils # (Manual) 0.0 K/mm3 (0.0-0.1) 07/13/16 07:47 Metamyelocytes # 0.0 K/mm3 07/13/16 07:47 Myelocytes # 0.0 K/mm3 07/13/16 07:47 Promyelocytes # 0.0 K/mm3 07/13/16 07:47 Blast Cells # 0.0 K/mm3 07/13/16 07:47 WBC Morphology Not Reportable 07/13/16 07:47 Hypersegmented Neuts Not Reportable 07/13/16 07:47 Hyposegmented Neuts Not Reportable 07/13/16 07:47 Hypogranular Neuts Not Reportable 07/13/16 07:47 Smudge Cells Not Reportable 07/13/16 07:47 Toxic Granulation Not Reportable 07/13/16 07:47 Toxic Vacuolation Not Reportable 07/13/16 07:47 Dohle Bodies Not Reportable 07/13/16 07:47 Pelger-Huet Anomaly Not Reportable 07/13/16 07:47 Lane Rods Not Reportable 07/13/16 07:47 Platelet Estimate Appears normal 07/13/16 07:47 Clumped Platelets Not Reportable 07/13/16 07:47 Plt Clumps, EDTA Not Reportable 07/13/16 07:47 Large Platelets Not Reportable 07/13/16 07:47 Giant Platelets Not Reportable 07/13/16 07:47 Platelet Satelliting Not Reportable 07/13/16 07:47 Plt Morphology Comment Not Reportable 07/13/16 07:47 RBC Morphology Normal 07/13/16 07:47 Dimorphic RBCs Not Reportable 07/13/16 07:47 Polychromasia Not Reportable 07/13/16 07:47 Hypochromasia Not Reportable 07/13/16 07:47 Poikilocytosis Not Reportable 07/13/16 07:47 Anisocytosis Not Reportable 07/13/16 07:47 Microcytosis Not Reportable 07/13/16 07:47 Macrocytosis Not Reportable 07/13/16 07:47 Spherocytes Not Reportable 07/13/16 07:47 Pappenheimer Bodies Not Reportable 07/13/16 07:47 Sickle Cells Not Reportable 07/13/16 07:47 Target Cells Not Reportable 07/13/16 07:47 Tear Drop Cells Not Reportable 07/13/16 07:47 Ovalocytes Not Reportable 07/13/16 07:47 Helmet Cells Not Reportable 07/13/16 07:47 Yoon-Hanson Bodies Not Reportable 07/13/16 07:47 [place] Rings Not Reportable 07/13/16 07:47 [place]ia Cells Not Reportable 07/13/16 07:47 Bite Cells Not Reportable 07/13/16 07:47 Crenated Cell Not Reportable 07/13/16 07:47 Elliptocytes Not Reportable 07/13/16 07:47 Acanthocytes (Spur) Not Reportable 07/13/16 07:47 Rouleaux Not Reportable 07/13/16 07:47 Hemoglobin C Crystals Not Reportable 07/13/16 07:47 Schistocytes Not Reportable 07/13/16 07:47 Malaria parasites Not Reportable 07/13/16 07:47 Tobias Bodies Not Reportable 07/13/16 07:47 Hem Pathologist Commnt No 07/13/16 07:47 PT 14.1 Sec. (12.2-14.9) 07/09/16 14:55 INR 1.10 (0.87-1.13) 07/09/16 14:55 POC ABG pH 7.408 (7.35-7.45) 07/13/16 11:11 POC ABG pCO2 35.9 (35-45) 07/13/16 11:11 POC ABG pO2 79 (80-105) L 07/13/16 11:11 POC ABG HCO3 22.6 07/13/16 11:11 POC ABG Total CO2 24 07/13/16 11:11 POC ABG O2 Sat 96 07/13/16 11:11 POC ABG Base Excess -2 07/13/16 11:11 FiO2 40 % 07/13/16 11:11 Sodium 139 mmol/L (137-145) 07/18/16 08:26 Potassium 3.9 mmol/L (3.6-5.0) 07/18/16 08:26 Chloride 101.8 mmol/L (98-107) 07/18/16 08:26 Carbon Dioxide 20 mmol/L (22-30) L 07/18/16 08:26 Anion Gap 21 mmol/L 07/18/16 08:26 BUN 15 mg/dL (9-20) 07/18/16 08:26 Creatinine 0.7 mg/dL (0.8-1.5) L 07/18/16 08:26 Estimated GFR > 60 ml/min 07/18/16 08:26 BUN/Creatinine Ratio 21.42 % 07/18/16 08:26 Glucose 91 mg/dL (75-100) 07/18/16 08:26 POC Glucose 88 (70-105) 07/18/16 06:55 Lactic Acid 2.4 mmol/L (0.7-2.0) H* 07/09/16 18:28 Calcium 8.7 mg/dL (8.4-10.2) 07/18/16 08:26 Phosphorus 2.0 mg/dL (2.5-4.5) L D 07/12/16 23:36 Magnesium 2.2 mg/dL (1.7-2.3) 07/12/16 23:36 Total Bilirubin 1.4 mg/dL (0.1-1.2) H 07/13/16 07:47 Direct Bilirubin 0.3 mg/dL (0-0.2) H 07/09/16 14:55 Indirect Bilirubin 0.6 mg/dL 07/09/16 14:55 AST 101 units/L (5-40) H 07/13/16 07:47 ALT 120 units/L (7-56) H 07/13/16 07:47 Alkaline Phosphatase 80 units/L (35-129) 07/13/16 07:47 Ammonia 30.0 umol/L (25-60) 07/09/16 14:55 Troponin T < 0.010 ng/mL (0.00-0.029) 07/09/16 14:55 C-Reactive Protein 11.60 mg/dL (0.00-1.30) H 07/09/16 14:55 Total Protein 7.4 g/dL (6.3-8.2) 07/13/16 07:47 Albumin 3.0 g/dL (3.9-5) L 07/13/16 07:47 Albumin/Globulin Ratio 0.7 % 07/13/16 07:47 Triglycerides 298 mg/dL (2-149) H 07/11/16 11:09 Urine Color Yellow (Yellow) 07/09/16 14:47 Urine Turbidity Clear (Clear) 07/09/16 14:47 Urine pH 7.0 (5.0-7.0) 07/09/16 14:47 Ur Specific [place] 1.012 (1.003-1.030) 07/09/16 14:47 Urine Protein 100 mg/dl mg/dL (Negative) 07/09/16 14:47 Urine Glucose (UA) >=500 mg/dL (Negative) 07/09/16 14:47 Urine Ketones Tr mg/dL (Negative) 07/09/16 14:47 Urine Blood Mod (Negative) 07/09/16 14:47 Urine Nitrite Neg (Negative) 07/09/16 14:47 Urine Bilirubin Neg (Negative) 07/09/16 14:47 Urine Urobilinogen < 2.0 mg/dL (<2.0) 07/09/16 14:47 Ur Leukocyte Esterase Neg (Negative) 07/09/16 14:47 Urine WBC (Auto) 1.0 /HPF (0.0-6.0) 07/09/16 14:47 Urine RBC (Auto) 11.0 /HPF (0.0-6.0) 07/09/16 14:47 Urine Mucus Few /HPF 07/09/16 14:47 Urine Opiates Screen Presumptive negative 07/09/16 14:47 Urine Methadone Screen Presumptive negative 07/09/16 14:47 Ur Barbiturates Screen Presumptive negative 07/09/16 14:47 Ur Phencyclidine Scrn Presumptive negative 07/09/16 14:47 Ur Amphetamines Screen Presumptive negative 07/09/16 14:47 U Benzodiazepines Scrn Presumptive negative 07/09/16 14:47 Urine Cocaine Screen Presumptive negative 07/09/16 14:47 U Marijuana (THC) Screen Presumptive negative 07/09/16 14:47 Drugs of Abuse Note Disclamer 07/09/16 14:47
[2016-07-18] MEDS ORDERED: CITRATE OF MAGNESIA PO PRN (11:33)
--- NOTE | 2016-07-18 12:32 | Progress Note ---
Assessment and Plan Acute respiratory failure. Respiratory stable. Severe sepsis, strep pneumonia. No pneumonia per x-rays Influenza and family report what appears to be influenza-like illness in fellow workers on the past couple weeks Streptococcal pneumonia. Clear x-ray at this point AMS. Improving Recommendations Continue antibiotics. I ordered Rocephin to be increased to 2 g per day yesterday but for some reason this order was not followed. Patient is now on Rocephin 2 g and vancomycin as per ID Request infection control nurse to follow-up with health department regarding influenza report on work site, [employer] Monitor cultures Follow-up on ID recommendations Pulmonary-iverson patient is stable. We'll sign off. Subjective Date of service: 07/18/16 Principal diagnosis: Influenza, Strep.pneumonia sepsis Interval history: Patient awake and alert. Overall feeling better Objective Vital Signs - 12hr 07/18/16 07/18/16 07/18/16 01:03 08:35 10:50 Temperature 98.8 F 98.8 F Pulse Rate 92 H Pulse Rate [ 86 Left] Pulse Rate [ 92 H Right Radial] Respiratory 20 20 Rate Blood Pressure 126/75 150/99 Blood Pressure 150/99 [Right Arm] O2 Sat by Pulse 96 98 Oximetry Constitutional: alert Eyes: non-icteric ENT: oropharynx moist Neck: supple, other (some neck pain and tenderness) Ascultation: Bilateral: clear, diminished breath sounds, rhonchi (bilateral coarse rhonchi) Cardiovascular: regular rate and rhythm Integumentary: other (sweating) Neurologic: normal mental status (looks sleepy toxin. Talks in full sentences and comprehension appeared to be normal), non-focal exam, pupils equal and round , CN II-XII normal, other (no clear-cut nuchal rigidity ) CBC and BMP: 07/18/16 08:26 07/18/16 08:26 ABG, PT/INR, D-dimer: ABG POC ABG pH 7.408 (7.35-7.45) 07/13/16 11:11 POC ABG pCO2 35.9 (35-45) 07/13/16 11:11 POC ABG pO2 79 (80-105) L 07/13/16 11:11 POC ABG HCO3 22.6 07/13/16 11:11 POC ABG Total CO2 24 07/13/16 11:11 POC ABG O2 Sat 96 07/13/16 11:11 PT/INR, D-dimer PT 14.1 Sec. (12.2-14.9) 07/09/16 14:55 INR 1.10 (0.87-1.13) 07/09/16 14:55 Abnormal lab findings: Abnormal Labs 07/09/16 07/09/16 07/10/16 18:28 22:10 00:23 WBC Hgb Hct RDW Plt Count Lymph % (Auto) [place] % (Auto) Lymph # [place] # Seg Neutrophils % Seg Neuts % (Manual) Seg Neutrophils # Seg Neutrophils # Man POC ABG pH POC ABG pCO2 POC ABG pO2 Sodium Potassium Chloride Carbon Dioxide Creatinine Glucose POC Glucose 123 H 118 H Lactic Acid 2.4 H* Calcium Phosphorus Total Bilirubin AST ALT Albumin Triglycerides 07/10/16 07/10/16 07/10/16 03:22 03:22 05:35 WBC 17.4 H Hgb Hct RDW 16.2 H Plt Count Lymph % (Auto) 6.8 L [place] % (Auto) 7.7 H Lymph # [place] # 1.3 H Seg Neutrophils % 85.3 H Seg Neuts % (Manual) Seg Neutrophils # 14.8 H Seg Neutrophils # Man POC ABG pH POC ABG pCO2 POC ABG pO2 Sodium 129 L Potassium Chloride 92.8 L Carbon Dioxide Creatinine Glucose 115 H POC Glucose 106 H Lactic Acid Calcium 7.8 L Phosphorus Total Bilirubin AST 42 H ALT 79 H Albumin 3.2 L Triglycerides 07/10/16 07/11/16 07/11/16 05:48 05:59 11:09 WBC 12.0 H Hgb 11.1 L Hct 33.6 L RDW 16.2 H Plt Count Lymph % (Auto) 8.9 L [place] % (Auto) 8.8 H Lymph # 1.1 L [place] # 1.1 H Seg Neutrophils % 82.1 H Seg Neuts % (Manual) Seg Neutrophils # 9.8 H Seg Neutrophils # Man POC ABG pH 7.273 L POC ABG pCO2 53.4 H 34.9 L POC ABG pO2 113 H 163 H Sodium Potassium Chloride Carbon Dioxide Creatinine Glucose POC Glucose Lactic Acid Calcium Phosphorus Total Bilirubin AST ALT Albumin Triglycerides 07/11/16 07/11/16 07/12/16 11:09 11:09 20:49 WBC Hgb Hct RDW Plt Count Lymph % (Auto) [place] % (Auto) Lymph # [place] # Seg Neutrophils % Seg Neuts % (Manual) Seg Neutrophils # Seg Neutrophils # Man POC ABG pH POC ABG pCO2 34.2 L POC ABG pO2 79 L Sodium Potassium Chloride Carbon Dioxide Creatinine Glucose POC Glucose Lactic Acid Calcium 8.2 L Phosphorus 1.5 L Total Bilirubin AST ALT Albumin Triglycerides 298 H 07/12/16 07/13/16 07/13/16 23:36 07:47 07:47 WBC Hgb Hct RDW 15.7 H Plt Count Lymph % (Auto) [place] % (Auto) Lymph # [place] # Seg Neutrophils % Seg Neuts % (Manual) 74.0 H Seg Neutrophils # Seg Neutrophils # Man 7.8 H POC ABG pH POC ABG pCO2 POC ABG pO2 Sodium 136 L Potassium 3.3 L Chloride Carbon Dioxide 21 L Creatinine Glucose 111 H POC Glucose Lactic Acid Calcium 8.2 L Phosphorus 2.0 L D Total Bilirubin 1.4 H AST 101 H ALT 120 H Albumin 3.0 L Triglycerides 07/13/16 07/14/16 07/14/16 11:11 07:20 07:20 WBC Hgb Hct RDW 15.8 H Plt Count Lymph % (Auto) 12.4 L [place] % (Auto) 11.7 H Lymph # [place] # 1.2 H Seg Neutrophils % 74.0 H Seg Neuts % (Manual) Seg Neutrophils # Seg Neutrophils # Man POC ABG pH POC ABG pCO2 POC ABG pO2 79 L Sodium Potassium Chloride Carbon Dioxide 21 L Creatinine Glucose POC Glucose Lactic Acid Calcium 8.3 L Phosphorus Total Bilirubin AST ALT Albumin Triglycerides 07/15/16 07/15/16 07/16/16 04:50 04:50 04:16 WBC Hgb Hct RDW 15.6 H Plt Count Lymph % (Auto) 10.4 L [place] % (Auto) 10.3 H Lymph # 1.0 L [place] # 1.0 H Seg Neutrophils % 77.9 H Seg Neuts % (Manual) Seg Neutrophils # Seg Neutrophils # Man POC ABG pH POC ABG pCO2 POC ABG pO2 Sodium Potassium 3.5 L Chloride Carbon Dioxide 19 L Creatinine 0.6 L 0.6 L Glucose 106 H 132 H POC Glucose Lactic Acid Calcium Phosphorus Total Bilirubin AST ALT Albumin Triglycerides 07/16/16 07/17/16 07/17/16 10:09 09:29 09:29 WBC Hgb 11.7 L Hct RDW 16.0 H 15.9 H Plt Count 481 H Lymph % (Auto) [place] % (Auto) 9.2 H Lymph # [place] # Seg Neutrophils % 75.9 H Seg Neuts % (Manual) Seg Neutrophils # Seg Neutrophils # Man POC ABG pH POC ABG pCO2 POC ABG pO2 Sodium Potassium Chloride Carbon Dioxide 21 L Creatinine 0.6 L Glucose 129 H POC Glucose Lactic Acid Calcium Phosphorus Total Bilirubin AST ALT Albumin Triglycerides 07/18/16 07/18/16 07/18/16 08:26 08:26 11:58 WBC Hgb 11.7 L Hct RDW 15.9 H Plt Count 526 H Lymph % (Auto) [place] % (Auto) 7.6 H Lymph # [place] # Seg Neutrophils % 74.3 H Seg Neuts % (Manual) Seg Neutrophils # Seg Neutrophils # Man POC ABG pH POC ABG pCO2 POC ABG pO2 Sodium Potassium Chloride Carbon Dioxide 20 L Creatinine 0.7 L Glucose POC Glucose 124 H Lactic Acid Calcium Phosphorus Total Bilirubin AST ALT Albumin Triglycerides
--- NOTE | 2016-07-18 18:20 | Progress Note ---
Subjective Date of service: 07/18/16 Principal diagnosis: Influenza, Strep.pneumonia sepsis Interval history: No new issues today. More awake. PHYSICAL EXAM VS. Stable. No fever Chest - good air entry cvs - s1s2 abd - bs+ LABS See lab section ASSESSMENT 1. Sepsis - resolving 2. Bacteremia 3. Obesity rec stable for floor. d/c isolation Objective - Constitutional Vitals: Vital Signs Temp Pulse Resp BP Pulse Ox 98.8 F 92 H 20 150/99 98 07/18/16 08:35 07/18/16 10:50 07/18/16 08:35 07/18/16 10:50 07/18/16 12:42 Temperature -Last 24 Hours Temperature 98.8 F Temperature 98.8 F Temperature 99.2 F - Labs CBC & Chem 7: 07/18/16 08:26 07/18/16 08:26 Labs: Abnormal lab results 07/18/16 07/18/16 07/18/16 Range/Units 08:26 08:26 11:58 Hgb 11.7 L (11.8-15.2) gm/dl RDW 15.9 H (13.2-15.2) % Plt Count 526 H (140-440) K/mm3 [place] % (Auto) 7.6 H (0.0-7.3) % Seg Neutrophils % 74.3 H (40.0-70.0) % Carbon Dioxide 20 L (22-30) mmol/L Creatinine 0.7 L (0.8-1.5) mg/dL POC Glucose 124 H (70-105)
[2016-07-19 07:59] LABS: Basophils % (Auto) 0.7 % (0.0-1.8); Eosinophils % (Auto) 1.8 % (0.0-4.3); Hematocrit 35.6 % (35.5-45.6); Hemoglobin 11.9 gm/dl (11.8-15.2); Mean Corpuscular HGB Conc 34 % (32-34); Mean Corpuscular Hemoglobin 30 pg (28-32); Mean Corpuscular Volume 90 fl (84-94); Platelet Count 530 K/mm3 (140-440); Red Blood Count 3.98 M/mm3 (3.65-5.03); Red Cell Distribution Width 15.9 % (13.2-15.2)
[2016-07-19 08:09] LABS: Anion Gap 19 mmol/L; Blood Urea Nitrogen 14 mg/dL (9-20); Calcium 8.7 mg/dL (8.4-10.2); Carbon Dioxide 22 mmol/L (22-30); Chloride 100.4 mmol/L (98-107); Glucose 97 mg/dL (75-100); Sodium 137 mmol/L (137-145)
[2016-07-19] MEDS: ROCEPHIN/NS 2 GM/100 ML 2 GM/100 ML BAG IV SCH (09:31)
[2016-07-19] MEDS: LOVENOX SUB-Q SCH (09:32)
[2016-07-19] MEDS: NORVASC PO SCH (09:33)
[2016-07-19] MEDS: VANCOMYCIN VIAL 1,500 MG in NACL 0.9% 500 ML 500 ML IV SCH (09:33)
--- NOTE | 2016-07-19 09:34 | Discharge Summary ---
Providers - Providers Date of Admission: 07/09/16 16:49 Date of discharge: 07/19/16 Attending physician: MAYITO HOPE MD 07/09/16 17:08 Consult to Physician [CONS] Routine Consulting Provider: KEELY MADDOX Reason For Exam: Acute resp failure Place consult to:: DAYAN SWEEPER CLEANER INDUSTRIAL Notified:: Y Was contact made?: Yes If yes, spoke with:: Kavitha/Vane DECKER Time called:: 17:40 07/11/16 09:14 Consult to Dietitian/Nutrition [CONS] Routine Physician Instructions: Reason For Exam: Reason for Consult: Write/Manage Tube Feeding 07/15/16 11:06 Consult to Physician [CONS] Routine Consulting Provider: DEANN FLORES Reason For Exam: FLU Place consult to:: SANDRA Notified:: FOZIA Phone number called:: [phone] Was contact made?: Yes If yes, spoke with:: FOZIA LAMINATING MACHINE OPERATOR HELPER Time called:: 11:15 Comment:: NONE 07/15/16 14:59 Consult to Mental Health [CONS] Routine Reason For Exam: confusion Place consult to:: marlene Notified:: marlene Phone number called:: [phone] Was contact made?: Yes If yes, spoke with:: MARLENE Time called:: 15:05 07/18/16 11:32 Physical Therapy Evaluation and Treat [CONS] Routine Comment: Reason For Exam: weakness Primary care physician: DIRECTOR OF ESTATE Hospitalization Reason for admission: sepsis, influenza Condition: Stable Disposition: DISCHARGED TO HOME OR SELFCARE Time spent for discharge: 31 minutes - Discharge Diagnoses (1) Acute respiratory failure Status: Acute Qualifiers: Respiratory failure complication: R (2) Altered mental status Status: Acute Qualifiers: Altered mental status type: delirium Coma depth: C Coma timing: C Qualified Code(s): R41.0 - Disorientation, unspecified (3) Encephalopathy Status: Acute (4) Febrile illness, acute Status: Acute (5) Hypertensive emergency Status: Acute (6) Sepsis Status: Acute Qualifiers: Sepsis type: Streptococcus, other Qualified Code(s): A40.8 - Other streptococcal sepsis (7) Sepsis due to alpha-hemolytic Streptococcus Status: Acute Core Measure Documentation - Palliative Care Palliative Care/ Comfort Measures: Not Applicable - Core Measures Any of the following diagnoses?: none Exam - Physical Exam Narrative exam: Note in cardiopulmonary distress Vital signs as documented. Head exam is unremarkable. No scleral icterus . Neck is without jugular venous distension, thyromegaly, or carotid bruits. Lungs are clear to auscultation. Cardiac exam reveals regular rate and Rhythm. First and second heart sounds normal. No murmurs, rubs or gallops. Abdominal exam reveals normal bowel sounds, no masses, no organomegaly and no aortic enlargement. Extremities are nonedematous and both femoral and pedal pulses are normal. GASKET MAKER: Alert and oriented 4. - Constitutional Vitals: Temp Pulse Resp BP Pulse Ox 98.5 F 90 20 140/88 97 07/19/16 08:00 07/19/16 08:00 07/19/16 08:00 07/19/16 08:00 07/19/16 08:00 Plan Activity: no restrictions Weight Bearing Status: Full Weight Bearing Diet: low fat, low salt Follow up with: PRIMARY CARE, [Primary Care Provider] - 7 Days Prescriptions: amLODIPine [Norvasc] 5 mg PO QDAY #30 tablet Bisacodyl [Dulcolax suppos] 10 mg PO QDAY PRN #20 supp.rect PRN Reason: constipation unrelieved by MOM Levofloxacin [Levaquin] 750 mg PO QDAY #3 tablet
[2016-07-19] MEDS: TYLENOL PO PRN ×2 (10:22→21:58)
--- NOTE | 2016-07-19 14:23 | Progress Note ---
Assessment and Plan - Patient Problems (1) Acute respiratory failure Current Visit: Yes Status: Acute Qualifiers: Respiratory failure complication: R Plan to address problem: Resolved (2) Altered mental status Current Visit: Yes Status: Acute Qualifiers: Altered mental status type: delirium Coma depth: C Coma timing: C Qualified Code(s): R41.0 - Disorientation, unspecified Plan to address problem: Supportive care Treating Underlying cause He get improved but later today when I tried to discharge him he complains lethargy (3) Encephalopathy Current Visit: Yes Status: Acute Plan to address problem: Supportive Care (4) Febrile illness, acute Current Visit: Yes Status: Acute (5) Hypertensive emergency Current Visit: Yes Status: Acute Plan to address problem: Continue blood pressure medications as needed Controlled (6) Sepsis Current Visit: Yes Status: Acute Qualifiers: Sepsis type: Streptococcus, other Qualified Code(s): A40.8 - Other streptococcal sepsis (7) Sepsis due to alpha-hemolytic Streptococcus Current Visit: Yes Status: Acute Plan to address problem: On IV antibiotics, managed according to sepsis protocol. History Interval history: Patient is getting better, he is alert and oriented. But later he was complaining of weakness or tenderness, lethargy and strabismus. The plan was to discharge him to keep him today because of his lethargy. Hospitalist Physical - Physical exam Narrative exam: Note in cardiopulmonary distress Vital signs as documented. Head exam is unremarkable. No scleral icterus . Neck is without jugular venous distension, thyromegaly, or carotid bruits. Lungs are clear to auscultation. Cardiac exam reveals regular rate and Rhythm. First and second heart sounds normal. No murmurs, rubs or gallops. Abdominal exam reveals normal bowel sounds, no masses, no organomegaly and no aortic enlargement. Extremities are nonedematous and both femoral and pedal pulses are normal. UNION REPRESENTATIVE: Letharic. - Constitutional Vitals: Temp Pulse Resp BP Pulse Ox 98.5 F 90 20 140/88 97 07/19/16 08:00 07/19/16 09:33 07/19/16 08:00 07/19/16 09:33 07/19/16 08:00 General appearance: Present: mild distress Results - Labs CBC & Chem 7: 07/19/16 07:14 07/19/16 07:13 Labs: Laboratory Last Values WBC 8.0 K/mm3 (4.5-11.0) 07/19/16 07:14 RBC 3.98 M/mm3 (3.65-5.03) 07/19/16 07:14 Hgb 11.9 gm/dl (11.8-15.2) 07/19/16 07:14 Hct 35.6 % (35.5-45.6) 07/19/16 07:14 MCV 90 fl (84-94) 07/19/16 07:14 MCH 30 pg (28-32) 07/19/16 07:14 MCHC 34 % (32-34) 07/19/16 07:14 RDW 15.9 % (13.2-15.2) H 07/19/16 07:14 Plt Count 530 K/mm3 (140-440) H 07/19/16 07:14 Lymph % (Auto) 20.5 % (13.4-35.0) 07/19/16 07:14 [place] % (Auto) 8.7 % (0.0-7.3) H 07/19/16 07:14 Eos % (Auto) 1.8 % (0.0-4.3) 07/19/16 07:14 Baso % (Auto) 0.7 % (0.0-1.8) 07/19/16 07:14 Lymph # 1.6 K/mm3 (1.2-5.4) 07/19/16 07:14 [place] # 0.7 K/mm3 (0.0-0.8) 07/19/16 07:14 Eos # 0.1 K/mm3 (0.0-0.4) 07/19/16 07:14 Baso # 0.1 K/mm3 (0.0-0.1) 07/19/16 07:14 Add Manual Diff Complete 07/13/16 07:47 Total Counted 100 07/13/16 07:47 Seg Neutrophils % 68.3 % (40.0-70.0) 07/19/16 07:14 Seg Neuts % (Manual) 74.0 % (40.0-70.0) H 07/13/16 07:47 Band Neutrophils % 3.0 % 07/13/16 07:47 Lymphocytes % (Manual) 15.0 % (13.4-35.0) 07/13/16 07:47 Reactive Lymphs % (Man) 0 % 07/13/16 07:47 Monocytes % (Manual) 7.0 % (0.0-7.3) 07/13/16 07:47 Eosinophils % (Manual) 1.0 % (0.0-4.3) 07/13/16 07:47 Basophils % (Manual) 0 % (0.0-1.8) 07/13/16 07:47 Metamyelocytes % 0 % 07/13/16 07:47 Myelocytes % 0 % 07/13/16 07:47 Promyelocytes % 0 % 07/13/16 07:47 Blast Cells % 0 % 07/13/16 07:47 Nucleated RBC % Not Reportable 07/13/16 07:47 Seg Neutrophils # 5.5 K/mm3 (1.8-7.7) 07/19/16 07:14 Seg Neutrophils # Man 7.8 K/mm3 (1.8-7.7) H 07/13/16 07:47 Band Neutrophils # 0.3 K/mm3 07/13/16 07:47 Lymphocytes # (Manual) 1.6 K/mm3 (1.2-5.4) 07/13/16 07:47 Abs React Lymphs (Man) 0.0 K/mm3 07/13/16 07:47 Monocytes # (Manual) 0.7 K/mm3 (0.0-0.8) 07/13/16 07:47 Eosinophils # (Manual) 0.1 K/mm3 (0.0-0.4) 07/13/16 07:47 Basophils # (Manual) 0.0 K/mm3 (0.0-0.1) 07/13/16 07:47 Metamyelocytes # 0.0 K/mm3 07/13/16 07:47 Myelocytes # 0.0 K/mm3 07/13/16 07:47 Promyelocytes # 0.0 K/mm3 07/13/16 07:47 Blast Cells # 0.0 K/mm3 07/13/16 07:47 WBC Morphology Not Reportable 07/13/16 07:47 Hypersegmented Neuts Not Reportable 07/13/16 07:47 Hyposegmented Neuts Not Reportable 07/13/16 07:47 Hypogranular Neuts Not Reportable 07/13/16 07:47 Smudge Cells Not Reportable 07/13/16 07:47 Toxic Granulation Not Reportable 07/13/16 07:47 Toxic Vacuolation Not Reportable 07/13/16 07:47 Dohle Bodies Not Reportable 07/13/16 07:47 Pelger-Huet Anomaly Not Reportable 07/13/16 07:47 Lane Rods Not Reportable 07/13/16 07:47 Platelet Estimate Appears normal 07/13/16 07:47 Clumped Platelets Not Reportable 07/13/16 07:47 Plt Clumps, EDTA Not Reportable 07/13/16 07:47 Large Platelets Not Reportable 07/13/16 07:47 Giant Platelets Not Reportable 07/13/16 07:47 Platelet Satelliting Not Reportable 07/13/16 07:47 Plt Morphology Comment Not Reportable 07/13/16 07:47 RBC Morphology Normal 07/13/16 07:47 Dimorphic RBCs Not Reportable 07/13/16 07:47 Polychromasia Not Reportable 07/13/16 07:47 Hypochromasia Not Reportable 07/13/16 07:47 Poikilocytosis Not Reportable 07/13/16 07:47 Anisocytosis Not Reportable 07/13/16 07:47 Microcytosis Not Reportable 07/13/16 07:47 Macrocytosis Not Reportable 07/13/16 07:47 Spherocytes Not Reportable 07/13/16 07:47 Pappenheimer Bodies Not Reportable 07/13/16 07:47 Sickle Cells Not Reportable 07/13/16 07:47 Target Cells Not Reportable 07/13/16 07:47 Tear Drop Cells Not Reportable 07/13/16 07:47 Ovalocytes Not Reportable 07/13/16 07:47 Helmet Cells Not Reportable 07/13/16 07:47 Yoon-Gant[place] Bodies Not Reportable 07/13/16 07:47 [place] Rings Not Reportable 07/13/16 07:47 [place]ia Cells Not Reportable 07/13/16 07:47 Bite Cells Not Reportable 07/13/16 07:47 Crenated Cell Not Reportable 07/13/16 07:47 Elliptocytes Not Reportable 07/13/16 07:47 Acanthocytes (Spur) Not Reportable 07/13/16 07:47 Rouleaux Not Reportable 07/13/16 07:47 Hemoglobin C Crystals Not Reportable 07/13/16 07:47 Schistocytes Not Reportable 07/13/16 07:47 Malaria parasites Not Reportable 07/13/16 07:47 Tobias Bodies Not Reportable 07/13/16 07:47 Hem Pathologist Commnt No 07/13/16 07:47 PT 14.1 Sec. (12.2-14.9) 07/09/16 14:55 INR 1.10 (0.87-1.13) 07/09/16 14:55 POC ABG pH 7.408 (7.35-7.45) 07/13/16 11:11 POC ABG pCO2 35.9 (35-45) 07/13/16 11:11 POC ABG pO2 79 (80-105) L 07/13/16 11:11 POC ABG HCO3 22.6 07/13/16 11:11 POC ABG Total CO2 24 07/13/16 11:11 POC ABG O2 Sat 96 07/13/16 11:11 POC ABG Base Excess -2 07/13/16 11:11 FiO2 40 % 07/13/16 11:11 Sodium 137 mmol/L (137-145) 07/19/16 07:13 Potassium 4.0 mmol/L (3.6-5.0) 07/19/16 07:13 Chloride 100.4 mmol/L (98-107) 07/19/16 07:13 Carbon Dioxide 22 mmol/L (22-30) 07/19/16 07:13 Anion Gap 19 mmol/L 07/19/16 07:13 BUN 14 mg/dL (9-20) 07/19/16 07:13 Creatinine 0.7 mg/dL (0.8-1.5) L 07/19/16 07:13 Estimated GFR > 60 ml/min 07/19/16 07:13 BUN/Creatinine Ratio 20.00 % 07/19/16 07:13 Glucose 97 mg/dL (75-100) 07/19/16 07:13 POC Glucose 124 (70-105) H 07/18/16 21:12 Lactic Acid 2.4 mmol/L (0.7-2.0) H* 07/09/16 18:28 Calcium 8.7 mg/dL (8.4-10.2) 07/19/16 07:13 Phosphorus 2.0 mg/dL (2.5-4.5) L D 07/12/16 23:36 Magnesium 2.2 mg/dL (1.7-2.3) 07/12/16 23:36 Total Bilirubin 1.4 mg/dL (0.1-1.2) H 07/13/16 07:47 Direct Bilirubin 0.3 mg/dL (0-0.2) H 07/09/16 14:55 Indirect Bilirubin 0.6 mg/dL 07/09/16 14:55 AST 101 units/L (5-40) H 07/13/16 07:47 ALT 120 units/L (7-56) H 07/13/16 07:47 Alkaline Phosphatase 80 units/L (35-129) 07/13/16 07:47 Ammonia 30.0 umol/L (25-60) 07/09/16 14:55 Troponin T < 0.010 ng/mL (0.00-0.029) 07/09/16 14:55 C-Reactive Protein 11.60 mg/dL (0.00-1.30) H 07/09/16 14:55 Total Protein 7.4 g/dL (6.3-8.2) 07/13/16 07:47 Albumin 3.0 g/dL (3.9-5) L 07/13/16 07:47 Albumin/Globulin Ratio 0.7 % 07/13/16 07:47 Triglycerides 298 mg/dL (2-149) H 07/11/16 11:09 Urine Color Yellow (Yellow) 07/09/16 14:47 Urine Turbidity Clear (Clear) 07/09/16 14:47 Urine pH 7.0 (5.0-7.0) 07/09/16 14:47 Ur Specific [place] 1.012 (1.003-1.030) 07/09/16 14:47 Urine Protein 100 mg/dl mg/dL (Negative) 07/09/16 14:47 Urine Glucose (UA) >=500 mg/dL (Negative) 07/09/16 14:47 Urine Ketones Tr mg/dL (Negative) 07/09/16 14:47 Urine Blood Mod (Negative) 07/09/16 14:47 Urine Nitrite Neg (Negative) 07/09/16 14:47 Urine Bilirubin Neg (Negative) 07/09/16 14:47 Urine Urobilinogen < 2.0 mg/dL (<2.0) 07/09/16 14:47 Ur Leukocyte Esterase Neg (Negative) 07/09/16 14:47 Urine WBC (Auto) 1.0 /HPF (0.0-6.0) 07/09/16 14:47 Urine RBC (Auto) 11.0 /HPF (0.0-6.0) 07/09/16 14:47 Urine Mucus Few /HPF 07/09/16 14:47 Urine Opiates Screen Presumptive negative 07/09/16 14:47 Urine Methadone Screen Presumptive negative 07/09/16 14:47 Ur Barbiturates Screen Presumptive negative 07/09/16 14:47 Ur Phencyclidine Scrn Presumptive negative 07/09/16 14:47 Ur Amphetamines Screen Presumptive negative 07/09/16 14:47 U Benzodiazepines Scrn Presumptive negative 07/09/16 14:47 Urine Cocaine Screen Presumptive negative 07/09/16 14:47 U Marijuana (THC) Screen Presumptive negative 07/09/16 14:47 Drugs of Abuse Note Disclamer 07/09/16 14:47
--- NOTE | 2016-07-19 18:38 | Progress Note ---
Subjective Date of service: 07/19/16 Principal diagnosis: Influenza, Strep.pneumonia sepsis Interval history: PATIENT IS AWAKE AND RESPONDING APPROPRIATELY TO QUESTIONS. DENIED HEADACHE OR FEVER. NO NECK STIFFNESS. PHYSICAL EXAM VS. Stable. No fever Chest - good air entry cvs - s1s2 abd - bs+ LABS See lab section ASSESSMENT 1. Sepsis - resolving. Repeat blood culture negative 2. Bacteremia 3. Obesity rec stable for floor. d/c planning on oral levaquin 750m daily for 10days. Objective - Constitutional Vitals: Vital Signs Temp Pulse Resp BP Pulse Ox 98.3 F 88 20 138/82 97 07/19/16 16:18 07/19/16 16:18 07/19/16 16:18 07/19/16 16:18 07/19/16 08:00 Temperature -Last 24 Hours Temperature 98.3 F Temperature 98.5 F Temperature 98.8 F - Labs CBC & Chem 7: 07/19/16 07:14 07/19/16 07:13 Labs: Abnormal lab results 07/18/16 07/19/16 07/19/16 Range/Units 21:12 07:13 07:14 RDW 15.9 H (13.2-15.2) % Plt Count 530 H (140-440) K/mm3 [place] % (Auto) 8.7 H (0.0-7.3) % Creatinine 0.7 L (0.8-1.5) mg/dL POC Glucose 124 H (70-105)
[2016-07-19] MEDS: ATIVAN PO PRN (21:58)
[2016-07-20] MEDS: VANCOMYCIN VIAL 1,500 MG in NACL 0.9% 500 ML 500 ML IV SCH ×2 (00:16→08:44)
[2016-07-20] MEDS: TYLENOL PO PRN (03:51)
--- NOTE | 2016-07-20 10:06 | Progress Note ---
Hospitalist Physical - Constitutional Vitals: Temp Pulse Resp BP Pulse Ox 98.3 F 91 H 18 135/100 96 07/20/16 08:03 07/20/16 08:03 07/20/16 08:03 07/20/16 08:03 07/20/16 00:00 General appearance: Present: mild distress Results - Labs CBC & Chem 7: 07/19/16 07:14 07/19/16 07:13 Labs: Laboratory Last Values WBC 8.0 K/mm3 (4.5-11.0) 07/19/16 07:14 RBC 3.98 M/mm3 (3.65-5.03) 07/19/16 07:14 Hgb 11.9 gm/dl (11.8-15.2) 07/19/16 07:14 Hct 35.6 % (35.5-45.6) 07/19/16 07:14 MCV 90 fl (84-94) 07/19/16 07:14 MCH 30 pg (28-32) 07/19/16 07:14 MCHC 34 % (32-34) 07/19/16 07:14 RDW 15.9 % (13.2-15.2) H 07/19/16 07:14 Plt Count 530 K/mm3 (140-440) H 07/19/16 07:14 Lymph % (Auto) 20.5 % (13.4-35.0) 07/19/16 07:14 [place] % (Auto) 8.7 % (0.0-7.3) H 07/19/16 07:14 Eos % (Auto) 1.8 % (0.0-4.3) 07/19/16 07:14 Baso % (Auto) 0.7 % (0.0-1.8) 07/19/16 07:14 Lymph # 1.6 K/mm3 (1.2-5.4) 07/19/16 07:14 [place] # 0.7 K/mm3 (0.0-0.8) 07/19/16 07:14 Eos # 0.1 K/mm3 (0.0-0.4) 07/19/16 07:14 Baso # 0.1 K/mm3 (0.0-0.1) 07/19/16 07:14 Add Manual Diff Complete 07/13/16 07:47 Total Counted 100 07/13/16 07:47 Seg Neutrophils % 68.3 % (40.0-70.0) 07/19/16 07:14 Seg Neuts % (Manual) 74.0 % (40.0-70.0) H 07/13/16 07:47 Band Neutrophils % 3.0 % 07/13/16 07:47 Lymphocytes % (Manual) 15.0 % (13.4-35.0) 07/13/16 07:47 Reactive Lymphs % (Man) 0 % 07/13/16 07:47 Monocytes % (Manual) 7.0 % (0.0-7.3) 07/13/16 07:47 Eosinophils % (Manual) 1.0 % (0.0-4.3) 07/13/16 07:47 Basophils % (Manual) 0 % (0.0-1.8) 07/13/16 07:47 Metamyelocytes % 0 % 07/13/16 07:47 Myelocytes % 0 % 07/13/16 07:47 Promyelocytes % 0 % 07/13/16 07:47 Blast Cells % 0 % 07/13/16 07:47 Nucleated RBC % Not Reportable 07/13/16 07:47 Seg Neutrophils # 5.5 K/mm3 (1.8-7.7) 07/19/16 07:14 Seg Neutrophils # Man 7.8 K/mm3 (1.8-7.7) H 07/13/16 07:47 Band Neutrophils # 0.3 K/mm3 07/13/16 07:47 Lymphocytes # (Manual) 1.6 K/mm3 (1.2-5.4) 07/13/16 07:47 Abs React Lymphs (Man) 0.0 K/mm3 07/13/16 07:47 Monocytes # (Manual) 0.7 K/mm3 (0.0-0.8) 07/13/16 07:47 Eosinophils # (Manual) 0.1 K/mm3 (0.0-0.4) 07/13/16 07:47 Basophils # (Manual) 0.0 K/mm3 (0.0-0.1) 07/13/16 07:47 Metamyelocytes # 0.0 K/mm3 07/13/16 07:47 Myelocytes # 0.0 K/mm3 07/13/16 07:47 Promyelocytes # 0.0 K/mm3 07/13/16 07:47 Blast Cells # 0.0 K/mm3 07/13/16 07:47 WBC Morphology Not Reportable 07/13/16 07:47 Hypersegmented Neuts Not Reportable 07/13/16 07:47 Hyposegmented Neuts Not Reportable 07/13/16 07:47 Hypogranular Neuts Not Reportable 07/13/16 07:47 Smudge Cells Not Reportable 07/13/16 07:47 Toxic Granulation Not Reportable 07/13/16 07:47 Toxic Vacuolation Not Reportable 07/13/16 07:47 Dohle Bodies Not Reportable 07/13/16 07:47 Pelger-Huet Anomaly Not Reportable 07/13/16 07:47 Lane Rods Not Reportable 07/13/16 07:47 Platelet Estimate Appears normal 07/13/16 07:47 Clumped Platelets Not Reportable 07/13/16 07:47 Plt Clumps, EDTA Not Reportable 07/13/16 07:47 Large Platelets Not Reportable 07/13/16 07:47 Giant Platelets Not Reportable 07/13/16 07:47 Platelet Satelliting Not Reportable 07/13/16 07:47 Plt Morphology Comment Not Reportable 07/13/16 07:47 RBC Morphology Normal 07/13/16 07:47 Dimorphic RBCs Not Reportable 07/13/16 07:47 Polychromasia Not Reportable 07/13/16 07:47 Hypochromasia Not Reportable 07/13/16 07:47 Poikilocytosis Not Reportable 07/13/16 07:47 Anisocytosis Not Reportable 07/13/16 07:47 Microcytosis Not Reportable 07/13/16 07:47 Macrocytosis Not Reportable 07/13/16 07:47 Spherocytes Not Reportable 07/13/16 07:47 Pappenheimer Bodies Not Reportable 07/13/16 07:47 Sickle Cells Not Reportable 07/13/16 07:47 Target Cells Not Reportable 07/13/16 07:47 Tear Drop Cells Not Reportable 07/13/16 07:47 Ovalocytes Not Reportable 07/13/16 07:47 Helmet Cells Not Reportable 07/13/16 07:47 Yoon-[place] Bodies Not Reportable 07/13/16 07:47 [place] Rings Not Reportable 07/13/16 07:47 Sofia Cells Not Reportable 07/13/16 07:47 Bite Cells Not Reportable 07/13/16 07:47 Crenated Cell Not Reportable 07/13/16 07:47 Elliptocytes Not Reportable 07/13/16 07:47 Acanthocytes (Spur) Not Reportable 07/13/16 07:47 Rouleaux Not Reportable 07/13/16 07:47 Hemoglobin C Crystals Not Reportable 07/13/16 07:47 Schistocytes Not Reportable 07/13/16 07:47 Malaria parasites Not Reportable 07/13/16 07:47 Tobias Bodies Not Reportable 07/13/16 07:47 Hem Pathologist Commnt No 07/13/16 07:47 PT 14.1 Sec. (12.2-14.9) 07/09/16 14:55 INR 1.10 (0.87-1.13) 07/09/16 14:55 POC ABG pH 7.408 (7.35-7.45) 07/13/16 11:11 POC ABG pCO2 35.9 (35-45) 07/13/16 11:11 POC ABG pO2 79 (80-105) L 07/13/16 11:11 POC ABG HCO3 22.6 07/13/16 11:11 POC ABG Total CO2 24 07/13/16 11:11 POC ABG O2 Sat 96 07/13/16 11:11 POC ABG Base Excess -2 07/13/16 11:11 FiO2 40 % 07/13/16 11:11 Sodium 137 mmol/L (137-145) 07/19/16 07:13 Potassium 4.0 mmol/L (3.6-5.0) 07/19/16 07:13 Chloride 100.4 mmol/L (98-107) 07/19/16 07:13 Carbon Dioxide 22 mmol/L (22-30) 07/19/16 07:13 Anion Gap 19 mmol/L 07/19/16 07:13 BUN 14 mg/dL (9-20) 07/19/16 07:13 Creatinine 0.7 mg/dL (0.8-1.5) L 07/19/16 07:13 Estimated GFR > 60 ml/min 07/19/16 07:13 BUN/Creatinine Ratio 20.00 % 07/19/16 07:13 Glucose 97 mg/dL (75-100) 07/19/16 07:13 POC Glucose 103 (70-105) 07/20/16 06:08 Lactic Acid 2.4 mmol/L (0.7-2.0) H* 07/09/16 18:28 Calcium 8.7 mg/dL (8.4-10.2) 07/19/16 07:13 Phosphorus 2.0 mg/dL (2.5-4.5) L D 07/12/16 23:36 Magnesium 2.2 mg/dL (1.7-2.3) 07/12/16 23:36 Total Bilirubin 1.4 mg/dL (0.1-1.2) H 07/13/16 07:47 Direct Bilirubin 0.3 mg/dL (0-0.2) H 07/09/16 14:55 Indirect Bilirubin 0.6 mg/dL 07/09/16 14:55 AST 101 units/L (5-40) H 07/13/16 07:47 ALT 120 units/L (7-56) H 07/13/16 07:47 Alkaline Phosphatase 80 units/L (35-129) 07/13/16 07:47 Ammonia 30.0 umol/L (25-60) 07/09/16 14:55 Troponin T < 0.010 ng/mL (0.00-0.029) 07/09/16 14:55 C-Reactive Protein 11.60 mg/dL (0.00-1.30) H 07/09/16 14:55 Total Protein 7.4 g/dL (6.3-8.2) 07/13/16 07:47 Albumin 3.0 g/dL (3.9-5) L 07/13/16 07:47 Albumin/Globulin Ratio 0.7 % 07/13/16 07:47 Triglycerides 298 mg/dL (2-149) H 07/11/16 11:09 Urine Color Yellow (Yellow) 07/09/16 14:47 Urine Turbidity Clear (Clear) 07/09/16 14:47 Urine pH 7.0 (5.0-7.0) 07/09/16 14:47 Ur Specific [place] 1.012 (1.003-1.030) 07/09/16 14:47 Urine Protein 100 mg/dl mg/dL (Negative) 07/09/16 14:47 Urine Glucose (UA) >=500 mg/dL (Negative) 07/09/16 14:47 Urine Ketones Tr mg/dL (Negative) 07/09/16 14:47 Urine Blood Mod (Negative) 07/09/16 14:47 Urine Nitrite Neg (Negative) 07/09/16 14:47 Urine Bilirubin Neg (Negative) 07/09/16 14:47 Urine Urobilinogen < 2.0 mg/dL (<2.0) 07/09/16 14:47 Ur Leukocyte Esterase Neg (Negative) 07/09/16 14:47 Urine WBC (Auto) 1.0 /HPF (0.0-6.0) 07/09/16 14:47 Urine RBC (Auto) 11.0 /HPF (0.0-6.0) 07/09/16 14:47 Urine Mucus Few /HPF 07/09/16 14:47 Urine Opiates Screen Presumptive negative 07/09/16 14:47 Urine Methadone Screen Presumptive negative 07/09/16 14:47 Ur Barbiturates Screen Presumptive negative 07/09/16 14:47 Ur Phencyclidine Scrn Presumptive negative 07/09/16 14:47 Ur Amphetamines Screen Presumptive negative 07/09/16 14:47 U Benzodiazepines Scrn Presumptive negative 07/09/16 14:47 Urine Cocaine Screen Presumptive negative 07/09/16 14:47 U Marijuana (THC) Screen Presumptive negative 07/09/16 14:47 Drugs of Abuse Note Disclamer 07/09/16 14:47
[2016-07-20] MEDS: LOVENOX SUB-Q SCH (10:11)
[2016-07-20] MEDS: ROCEPHIN/NS 2 GM/100 ML 2 GM/100 ML BAG IV SCH (10:11)
[2016-07-20] MEDS: NORVASC PO SCH (10:12)
[2016-07-20 10:19] VITALS: BP 140/88
--- NOTE | 2016-07-20 10:21 | Discharge Summary ---
Providers - Providers Date of Admission: 07/09/16 16:49 Date of discharge: 07/20/16 Attending physician: VASQUEZ MORE 07/11/16 09:14 Consult to Dietitian/Nutrition [CONS] Routine Physician Instructions: Reason For Exam: Reason for Consult: Write/Manage Tube Feeding 07/15/16 11:06 Consult to Physician [CONS] Routine Consulting Provider: ALANNA FLORES Reason For Exam: FLU Place consult to:: SANDRA Notified:: FOZIA Phone number called:: [phone] Was contact made?: Yes If yes, spoke with:: FOZIA TREE SURGEON Time called:: 11:15 Comment:: NONE 07/15/16 14:59 Consult to Mental Health [CONS] Routine Reason For Exam: confusion Place consult to:: marlene Notified:: marlene Phone number called:: [phone] Was contact made?: Yes If yes, spoke with:: MARLENE Time called:: 15:05 07/18/16 11:32 Physical Therapy Evaluation and Treat [CONS] Routine Comment: Reason For Exam: weakness Primary care physician: PEDIATRICIAN/MEDICAL DOCTOR Hospitalization Condition: Stable Disposition: DISCHARGED TO HOME OR SELFCARE Exam - Constitutional Vitals: Temp Pulse Resp BP Pulse Ox 98.3 F 90 18 140/88 96 07/20/16 08:03 07/20/16 10:12 07/20/16 08:03 07/20/16 10:12 07/20/16 00:00 Plan Activity: advance as tolerated Diet: low fat, low cholesterol, low salt Additional Instructions: 1.Follow up with PCP in 1 week. 2.Follow up with Dr. Alanna Flores, [facility] Physician in 1 week Follow up with: PRIMARY CARE,MD [Primary Care Provider] - 7 Days Prescriptions: amLODIPine [Norvasc] 5 mg PO QDAY #30 tablet Bisacodyl [Dulcolax suppos] 10 mg PO QDAY PRN #20 supp.rect PRN Reason: constipation unrelieved by MOM Levofloxacin [Levaquin] 750 mg PO QDAY #3 tablet
== END 2016-07-20 13:15 | disposition home or self-care (01) | DRG 871 ==
LOC: ED 13:48 → CC1 16:49 → 3A 07-17 19:02
PROVIDERS: ADMIT Internal Medicine; ATTEND Internal Medicine
PROC: 5A1945Z Respiratory Ventilation, 24-96 Consecutive Hours (ICD-10-PCS; principal; 2016-07-09)
PROC: 0BH17EZ Insertion of Endotracheal Airway into Trachea, Via Natural or Artificial Opening (ICD-10-PCS; 2016-07-09)
PROC: 4A033R1 Measurement of Arterial Saturation, Peripheral, Percutaneous Approach (ICD-10-PCS; 2016-07-09)
PROC: 0DH63UZ Insertion of Feeding Device into Stomach, Percutaneous Approach (ICD-10-PCS; 2016-07-09)
PROC: 4A033R1 Measurement of Arterial Saturation, Peripheral, Percutaneous Approach (ICD-10-PCS; 2016-07-11)
PROC: 4A033R1 Measurement of Arterial Saturation, Peripheral, Percutaneous Approach (ICD-10-PCS; 2016-07-12)
PROC: 4A033R1 Measurement of Arterial Saturation, Peripheral, Percutaneous Approach (ICD-10-PCS; 2016-07-13)
PROC: 5A09357 Assistance with Respiratory Ventilation, Less than 24 Consecutive Hours, Continuous Positive Airway Pressure (ICD-10-PCS; 2016-07-13)
DX: A40.8 Other streptococcal sepsis (principal); J96.00 Acute respiratory failure, unspecified whether with hypoxia or hypercapnia; G93.40 Encephalopathy, unspecified; J15.4 Pneumonia due to other streptococci; G03.9 Meningitis, unspecified; J11.08 Influenza due to unidentified influenza virus with specified pneumonia; I16.1 Hypertensive emergency; R65.20 Severe sepsis without septic shock; E11.9 Type 2 diabetes mellitus without complications; I10 Essential (primary) hypertension; E66.9 Obesity, unspecified; F31.9 Bipolar disorder, unspecified; F17.210 Nicotine dependence, cigarettes, uncomplicated; Z78.1 Physical restraint status; Z68.27 Body mass index [BMI] 27.0-27.9, adult
CPT/HCPCS: 31500; 36415; 36600; 70450; 71010; 74000; 80048; 80053; 80074; 80202; 80307; 81001; 82140; 82803; 82962; 83735; 84100; 84478; 84484; 85007; 85025; 85027; 85610; 86140; 87040; 87070; 87076; 87086; 87186; 87205; 93005; 93010; 94002; 94003; 94640; 94760; 96361; 96372; 96374; 96375; 96376; J0330; J0360; J0696; J1200; J1630; J1650; J2060; J2250; J2704; J3010; J3370; J7030; J7040

== ENCOUNTER 2020-10-12 02:44 | Emergency (ER) | payer MEDICARE ==
[2020-10-12] MEDS ORDERED: ASPIRIN 325 MG TAB PO ONE (03:12)
--- NOTE | 2020-10-12 03:53 | XRay Report ---
CHEST 1 VIEW 0325 INDICATION / CLINICAL INFORMATION: chest pain COMPARISON: None currently available FINDINGS: SUPPORT DEVICES: None HEART / MEDIASTINUM: No significant abnormality. LUNGS / PLEURA: No significant pulmonary or pleural abnormality. No pneumothorax. ADDITIONAL FINDINGS: No significant additional findings. IMPRESSION: No significant acute abnormality Signer Name: Carlitos Nguyễn MD Signed: 10/12/2020 3:49 AM Workstation Name: [id number]
[2020-10-12 05:19] LABS: Basophils # (Auto) 0.1 K/mm3 (0.0-0.1); Eosinophils # (Auto) 0.4 K/mm3 (0.0-0.4); Eosinophils % (Auto) 5.6 % (0.0-4.3); Hematocrit 43.8 % (35.5-45.6); Hemoglobin 15.2 gm/dl (11.8-15.2); Lymphocytes # (Auto) 2.6 K/mm3 (1.2-5.4); Lymphocytes % (Auto) 41.6 % (13.4-35.0); Mean Corpuscular HGB Conc 35 % (32-34); Mean Corpuscular Volume 97 fl (84-94); Monocytes # (Auto) 0.5 K/mm3 (0.0-0.8); Monocytes % (Auto) 7.5 % (0.0-7.3); Platelet Count 262 K/mm3 (140-440); Red Cell Distribution Width 15.2 % (13.2-15.2)
[2020-10-12 05:41] LABS: Alanine Aminotransferase 70 units/L (7-56); Albumin 4.2 g/dL (3.9-5); BUN/Creatinine Ratio 14; Blood Urea Nitrogen 11 mg/dL (9-20); Calcium 9.2 mg/dL (8.4-10.2); Hemolysis Index 29
--- NOTE | 2020-10-14 10:26 | Electrocardiograph Report ---
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
== END 2020-10-12 05:00 | disposition left against medical advice (07) ==
LOC: ED 02:44
DX: J00 Acute nasopharyngitis [common cold] (principal); R51.9 Headache, unspecified; Z53.21 Procedure and treatment not carried out due to patient leaving prior to being seen by health care provider
CPT/HCPCS: 36415; 71046; 80053; 84484; 85025; 93005